=== PATIENT | male | born 1980 | race Caucasian/White ===

== ENCOUNTER 2016-09-14 20:45 | Emergency (ER) | payer SELFPAY ==
[~2016-09-14] VITALS: Ht 177.8 cm; Wt 77.1 kg
[~2016-09-14 20:45] MED LIST: CLON0.1T PO; LORA0.5T96 PO
--- NOTE | 2016-09-14 21:27 | PHYS DOC ---
Past Medical History Past Medical History: Anxiety, Bipolar, Other Additional Past Medical Histor: HEPATITIS C, ADHD, MANIAC, Past Surgical History: No Surgical History Alcohol Use: Rarely Drug Use: Heroin, Marijuana, Methadone Adult General Chief Complaint Chief Complaint: HEADACHE HPI HPI Patient is a 35 year old male who presents with chief complaint of opiate withdrawal. Patient states he last used yesterday. Patient he feels just queasy has a headache, the headache is described as similar to previous. Patient denies any fevers, chills, vomiting, diarrhea. Patient is currently homeless. According to nursing, the patient with some vague statements regarding suicidal ideation so psychiatric liason was called in to assess the patient. Given the examination and interview the patient failed to mention any suicidal ideation to the M.D. Review of Systems Review of Systems Constitutional: Denies fever or chills. Feeling queasy Eyes: Denies change in visual acuity, redness, or eye pain [] HENT: Denies nasal congestion or sore throat [] Respiratory: Denies cough or shortness of breath [] Cardiovascular: No chest pain GI: Denies abdominal pain, nausea, vomiting, bloody stools or diarrhea [] : Denies dysuria or hematuria [] Musculoskeletal: Denies back pain or joint pain [] Integument: Complains of insect bites, source Neurologic: Mild headache. No focal weakness or sensory changes [] Endocrine: Denies polyuria or polydipsia [] Current Medications Current Medications Current Medications Medications (Trade) Dose Ordered Sig/Guillermo Start Time Stop Time Status Last Admin Dose Admin Clonidine HCl (Catapres) 0.1 mg 1X ONCE 09/14/16 21:30 09/14/16 21:31 DC 09/14/16 21:46 0.1 MG Diphenhydramine HCl (Benadryl) 25 mg 1X ONCE 09/14/16 21:30 09/14/16 21:31 DC 09/14/16 21:44 25 MG Loperamide HCl (Imodium) 4 mg STAT ONCE 09/14/16 21:30 09/14/16 21:31 DC 09/14/16 21:45 4 MG Ondansetron HCl (Zofran) 4 mg 1X ONCE 09/14/16 21:30 09/14/16 21:31 DC 09/14/16 21:45 4 MG Prochlorperazine Edisylate (Compazine) 10 mg 1X ONCE 09/14/16 21:30 09/14/16 21:31 DC 09/14/16 21:45 10 MG Allergies Allergies Allergies Coded Allergies Type Severity Reaction Last Updated Verified haloperidol Allergy Severe Swelling 08/08/15 Yes Physical Exam Physical Exam Constitutional: Well developed, well nourished, very mild distress, non-toxic appearance. [] HENT: Normocephalic, atraumatic,oropharynx moist, no oral exudates, nose normal. [] Eyes: PERRLA, EOMI, conjunctiva normal, no discharge. [] Neck: Normal range of motion, no tenderness, supple, no stridor. No LAD, no meningeal signs Cardiovascular:Heart rate regular rhythm, no murmur, equal pulses, normal perfusion, no signs of vascular insufficiency. Heart rate at the time of the exam was 64 Lungs & Thorax: Bilateral breath sounds clear to auscultation. No tachypnea Abdomen: Bowel sounds normal, soft, no tenderness, no masses, no pulsatile masses. [] Skin: Warm, dry, no erythema, no rash. Scattered insect bites without signs of infection or abscess. Old tract gant without signs of infection. No Osler nodes , no Janeway lesions no splinter hemorrhages. No diaphoresis, no piloerection Back: No tenderness, no CVA tenderness. Full range of motion Extremities: No tenderness, no cyanosis, no clubbing, ROM intact, no edema. No signs of DVT or compartment syndrome Neurologic: Alert and oriented X 3, normal motor function, ambulating with normal gait and without system in the ED, no focal deficits noted. [] Psychologic: Affect normal, judgement normal, mood normal. No paranoia, no hallucinations, no delusions. Very vague thoughts about thinking about end-of- life but no specific plan Current Patient Data Vital Signs Vital Signs Date Time Temp Pulse Resp B/P (MAP) Pulse Ox O2 Delivery O2 Flow Rate FiO2 09/14/16 21:46 72 160/97 09/14/16 20:48 98.6 12 100 Room Air 98.6 Lab Values Laboratory Tests Test 09/14/16 20:48 White Blood Count 9.9 x10^3/uL (4.0-11.0) Red Blood Count 4.90 x10^6/uL (4.30-5.70) Hemoglobin 13.6 g/dL (13.0-17.5) Hematocrit 41.5 % (39.0-53.0) Mean Corpuscular Volume 85 fL (79-100) Mean Corpuscular Hemoglobin 28 pg (25-35) Mean Corpuscular Hemoglobin Concent 33 g/dL (31-37) Red Cell Distribution Width 14.9 % (11.5-14.5) H Platelet Count 240 x10^3/uL (140-400) Neutrophils (%) (Auto) 75 % (31-73) H Lymphocytes (%) (Auto) 18 % (24-48) L Monocytes (%) (Auto) 6 % (0-9) Eosinophils (%) (Auto) 1 % (0-3) Basophils (%) (Auto) 1 % (0-3) Neutrophils # (Auto) 7.5 x10^3uL (1.8-7.7) Lymphocytes # (Auto) 1.8 x10^3/uL (1.0-4.8) Monocytes # (Auto) 0.5 x10^3/uL (0.0-1.1) Eosinophils # (Auto) 0.0 x10^3/uL (0.0-0.7) Basophils # (Auto) 0.1 x10^3/uL (0.0-0.2) Sodium Level 138 mmol/L (136-145) Potassium Level 3.7 mmol/L (3.5-5.1) Chloride Level 101 mmol/L (98-107) Carbon Dioxide Level 27 mmol/L (21-32) Anion Gap 10 (6-14) Blood Urea Nitrogen 6 mg/dL (8-26) L Creatinine 0.9 mg/dL (0.7-1.3) Estimated GFR (Cockcroft-Gault) 95.0 Glucose Level 101 mg/dL (70-99) H Calcium Level 9.5 mg/dL (8.5-10.1) Laboratory Tests 09/14/16 20:48 Laboratory Tests 09/14/16 20:48 EKG EKG [] Radiology/Procedures Radiology/Procedures [] Course & Med Decision Making Course & Med Decision Making Pertinent Labs and Imaging studies reviewed. (See chart for details) 2246 patient reevaluated at this time, upon in no distress, headache is relieved , patient is not displaying any signs of withdrawal at this time. Patient is not actively suicidal or homicidal. Patient has been given resources to follow- up [] Roxann Disclaimer Dragon Disclaimer This electronic medical record was generated, in whole or in part, using a voice recognition dictation system. Departure Departure Impression: Primary Impression: Opiate abuse, continuous Additional Impressions: Headache Suicidal ideation Disposition: 01 HOME, SELF-CARE Condition: IMPROVED Referrals: NO PCP (PCP) Patient Instructions: General Headache Without Cause, [id number], Opiate Dependence, Suicidal Feelings, How to Help Yourself Additional Instructions: Please follow-up with the list of clinics provided to you, also follow up with the resources the psychiatric liason gave to you. Scripts Loperamide HCl (Imodium A-D) 2 Mg Capsule 2 MG PO TID, #10 CAP Prov: Kell LÓPEZ MD 09/14/16 Hyoscyamine Sulfate (LEVSIN) 0.125 Mg Tablet 1 TAB PO TID, #15 TAB 1 Refill Prov: Kell LÓPEZ MD 09/14/16 Ondansetron (ONDANSETRON ODT) 4 Mg Tab.rapdis 1 TAB PO PRN Q6-8HRS, #16 TAB Prov: Kell LÓPEZ MD 09/14/16 Problem Qualifiers Kell LÓPEZ MD Sep 14, 2016 21:27
[2016-09-14] MEDS ORDERED: diphenhydrAMINE 50 MG/ML VIAL IVP ONE (21:30)
[2016-09-14] MEDS ORDERED: cloNIDine HCL 0.1 MG TABLET PO ONE (21:30)
[2016-09-14] MEDS ORDERED: ONDANSETRON PF 4 MG/2 ML VIAL. IV ONE (21:30)
[2016-09-14] MEDS ORDERED: PROCHLORPERAZINE 10 MG/2 ML VIAL. IM ONE (21:30)
[2016-09-14] MEDS ORDERED: LOPERAMIDE 2 MG CAPSULE PO ONE (21:30)
[2016-09-14 21:34] LABS: BASO # 0.1 x10^3/uL (0.0-0.2); BASO % 1 % (0-3); EOS % 1 % (0-3); HEMATOCRIT 41.5 % (39.0-53.0); HEMOGLOBIN 13.6 g/dL (13.0-17.5); LYMPH # 1.8 x10^3/uL (1.0-4.8); LYMPH % 18 % (24-48); MEAN CORPUSCULAR HEMOGLOBIN 28 pg (25-35); MEAN CORPUSCULAR HGB CONC 33 g/dL (31-37); MEAN CORPUSCULAR VOLUME 85 fL (79-100); MONO % 6 % (0-9); NEUT % 75 % (31-73); PLATELET COUNT 240 x10^3/uL (140-400); RED CELL DISTRIBUTION WIDTH 14.9 % (11.5-14.5); WHITE BLOOD COUNT 9.9 x10^3/uL (4.0-11.0)
[2016-09-14 21:50] LABS: CALCIUM 9.5 mg/dL (8.5-10.1); CREATININE 0.9 mg/dL (0.7-1.3); POTASSIUM 3.7 mmol/L (3.5-5.1)
[2016-09-14 22:38] VITALS: BP 127/78
[2016-09-14] MEDS ORDERED: HYOS0.1264 PO (22:51)
[2016-09-14] MEDS ORDERED: LOPE2CAP88 PO (22:51)
[2016-09-14] MEDS ORDERED: ONDA4TAB12 PO (22:51)
== END 2016-09-14 23:07 | disposition home or self-care (01) ==
LOC: ER 20:45
DX: F11.10 Opioid abuse, uncomplicated (principal); R45.851 Suicidal ideations; R51 Headache; F41.9 Anxiety disorder, unspecified; F90.9 Attention-deficit hyperactivity disorder, unspecified type; F12.10 Cannabis abuse, uncomplicated; Z59.0 Homelessness; Z88.8 Allergy status to other drugs, medicaments and biological substances
CPT/HCPCS: 36415; 80048; 85027; 96372; 96374; 96375; 99284; J0780; J1200; J2405

== ENCOUNTER 2016-09-16 02:29 | Emergency (ER) | payer SELFPAY ==
[~2016-09-16] VITALS: Ht 177.8 cm; Wt 77.1 kg
[~2016-09-16 02:29] MED LIST changes: +HYOS0.1264 PO; +LOPE2CAP88 PO; +ONDA4TAB12 PO
[2016-09-16 02:48] LABS: BASO # 0.1 x10^3/uL (0.0-0.2); BASO % 1 % (0-3); EOS % 1 % (0-3); HEMATOCRIT 40.4 % (39.0-53.0); HEMOGLOBIN 13.2 g/dL (13.0-17.5); LYMPH # 1.6 x10^3/uL (1.0-4.8); LYMPH % 13 % (24-48); MEAN CORPUSCULAR HEMOGLOBIN 28 pg (25-35); MEAN CORPUSCULAR HGB CONC 33 g/dL (31-37); MEAN CORPUSCULAR VOLUME 84 fL (79-100); MONO % 7 % (0-9); NEUT % 79 % (31-73); PLATELET COUNT 235 x10^3/uL (140-400); RED BLOOD COUNT 4.79 x10^6/uL (4.30-5.70); WHITE BLOOD COUNT 12.7 x10^3/uL (4.0-11.0)
[2016-09-16 02:59] LABS: CALCIUM 9.2 mg/dL (8.5-10.1); GFR 84.1; POTASSIUM 3.7 mmol/L (3.5-5.1)
[2016-09-16] MEDS ORDERED: KETOROLAC TROMETHAMINE 30 MG/ML INJ. IV ONE (03:00)
[2016-09-16] MEDS ORDERED: IV NORMAL SALINE 1000ML BAG 1,000 ML IV ONE (03:00)
[2016-09-16 03:30] VITALS: BP 129/83
[2016-09-16] MEDS ORDERED: SULF1TAB24 PO (03:50)
--- NOTE | 2016-09-16 03:50 | PHYS DOC ---
Past Medical History Past Medical History: Anxiety, Bipolar, Other Additional Past Medical Histor: HEPATITIS C, ADHD, MANIAC, IV Drug use Past Surgical History: No Surgical History Alcohol Use: Rarely Drug Use: Heroin, Marijuana, Methadone Social History Narrative: used herion this morning Adult General Chief Complaint Chief Complaint: CELLULITIS HPI HPI Patient is a 35 year old male who presents with complaints of redness to his left arm. Patient is an IV drug user. Patient denies any, fevers, chills, chest pain, shortness of breath. Patient has not injected in the left arm for several days he's only be using his right arm. Review of Systems Review of Systems Constitutional: Denies fever or chills [] HENT: Denies nasal congestion or sore throat [] Respiratory: Denies cough or shortness of breath [] Cardiovascular: No chest pain GI: Denies abdominal pain, : Denies dysuria or hematuria [] Musculoskeletal: Denies back pain or joint pain [] Integument: Redness left arm Neurologic: Denies headache, focal weakness or sensory changes [] Current Medications Current Medications Current Medications Medications (Trade) Dose Ordered Sig/Guillermo Start Time Stop Time Status Last Admin Dose Admin Ceftriaxone Sodium 1 gm/ Sodium Chloride 50 ml @ 100 mls/hr Q24H 09/16/16 03:00 09/16/16 02:50 100 MLS/HR Ceftriaxone Sodium 50 ml @ As Directed STK-MED ONCE 09/16/16 02:48 09/16/16 02:49 DC Ketorolac Tromethamine (Toradol) 30 mg 1X ONCE 09/16/16 03:00 09/16/16 03:01 DC 09/16/16 02:50 30 MG Sodium Chloride 1,000 ml @ 1,000 mls/hr 1X ONCE 09/16/16 03:00 09/16/16 03:59 09/16/16 02:50 1,000 MLS/HR Allergies Allergies Allergies Coded Allergies Type Severity Reaction Last Updated Verified haloperidol Allergy Severe Swelling 08/08/15 Yes Physical Exam Physical Exam Constitutional: Well developed, well nourished, no acute distress, non-toxic appearance. [] HENT: Normocephalic, atraumatic, dry mucous membranes, no oral exudates, nose normal. [] Eyes: EOMI, conjunctiva normal, no discharge. [] Neck: Normal range of motion, no tenderness, supple, no stridor. No LAD, no meningeal signs Cardiovascular: Tachycardia, equal pulses, normal perfusion. no murmur or rubs Lungs & Thorax: Bilateral breath sounds clear to auscultation, no tachypnea Abdomen: Bowel sounds normal, soft, no tenderness, no masses, no pulsatile masses. [] Skin: Edema and warmth to left arm but otherwise normal. No splinter hemorrhages, no Janeway lesions, no osler nodes Back: No tenderness, no CVA tenderness. [] Extremities: No tenderness, no cyanosis, ROM intact, mild edema left arm. No signs of DVT, or compartment syndrome. No signs of septic joint Neurologic: Alert and oriented X 3, normal motor function, ambulates in the ED with normal gait and without assistance no focal deficits noted. [] Psychologic: Affect normal, judgement normal, mood normal. [] Current Patient Data Vital Signs Vital Signs Date Time Temp Pulse Resp B/P (MAP) Pulse Ox O2 Delivery O2 Flow Rate FiO2 09/16/16 02:33 98.6 110 18 131/92 (105) 95 Room Air 98.6 Lab Values Laboratory Tests Test 09/16/16 02:35 White Blood Count 12.7 x10^3/uL (4.0-11.0) H Red Blood Count 4.79 x10^6/uL (4.30-5.70) Hemoglobin 13.2 g/dL (13.0-17.5) Hematocrit 40.4 % (39.0-53.0) Mean Corpuscular Volume 84 fL (79-100) Mean Corpuscular Hemoglobin 28 pg (25-35) Mean Corpuscular Hemoglobin Concent 33 g/dL (31-37) Red Cell Distribution Width 15.0 % (11.5-14.5) H Platelet Count 235 x10^3/uL (140-400) Neutrophils (%) (Auto) 79 % (31-73) H Lymphocytes (%) (Auto) 13 % (24-48) L Monocytes (%) (Auto) 7 % (0-9) Eosinophils (%) (Auto) 1 % (0-3) Basophils (%) (Auto) 1 % (0-3) Neutrophils # (Auto) 10.1 x10^3uL (1.8-7.7) H Lymphocytes # (Auto) 1.6 x10^3/uL (1.0-4.8) Monocytes # (Auto) 0.9 x10^3/uL (0.0-1.1) Eosinophils # (Auto) 0.1 x10^3/uL (0.0-0.7) Basophils # (Auto) 0.1 x10^3/uL (0.0-0.2) Sodium Level 135 mmol/L (136-145) L Potassium Level 3.7 mmol/L (3.5-5.1) Chloride Level 98 mmol/L (98-107) Carbon Dioxide Level 28 mmol/L (21-32) Anion Gap 9 (6-14) Blood Urea Nitrogen 12 mg/dL (8-26) Creatinine 1.0 mg/dL (0.7-1.3) Estimated GFR (Cockcroft-Gault) 84.1 Glucose Level 122 mg/dL (70-99) H Calcium Level 9.2 mg/dL (8.5-10.1) Laboratory Tests 09/16/16 02:35 Laboratory Tests 09/16/16 02:35 EKG EKG [] Radiology/Procedures Radiology/Procedures [] Course & Med Decision Making Course & Med Decision Making Pertinent Labs and Imaging studies reviewed. (See chart for details) 0348 HR 84, pt resting comfortably [] Dragon Disclaimer Dragon Disclaimer This electronic medical record was generated, in whole or in part, using a voice recognition dictation system. Departure Departure Impression: Primary Impression: Cellulitis Disposition: HOME, SELF-CARE Condition: STABLE Referrals: NO PCP (PCP) Additional Instructions: please follow up with the clinics in the list already provided to you. Scripts Sulfamethoxazole/Trimethoprim (BACTRIM DS TABLET) 1 Each Tablet 2 TAB PO BID, #40 TAB Prov: Kell LÓPEZ MD 09/16/16 Kell LÓPEZ MD Sep 16, 2016 03:50
== END 2016-09-16 04:00 | disposition home or self-care (01) ==
LOC: ER 02:29
DX: L03.114 Cellulitis of left upper limb (principal); F90.9 Attention-deficit hyperactivity disorder, unspecified type; F31.9 Bipolar disorder, unspecified; F12.10 Cannabis abuse, uncomplicated; F11.10 Opioid abuse, uncomplicated; Z88.8 Allergy status to other drugs, medicaments and biological substances
CPT/HCPCS: 36415; 80048; 85027; 96365; 96375; 99284; J0696; J1885; J7030

== ENCOUNTER 2016-10-21 19:48 | Inpatient (IN) | payer SELFPAY ==
[~2016-10-21] VITALS: Ht 177.8 cm; Wt 77.1 kg
[~2016-10-21 19:48] MED LIST changes: +SULF1TAB24 PO
--- NOTE | 2016-10-21 20:16 | PHYS DOC ---
Past Medical History Past Medical History: Anxiety, Bipolar, Other Additional Past Medical Histor: HEPATITIS C, ADHD, MANIAC, IV Drug use Past Surgical History: No Surgical History Alcohol Use: Rarely Drug Use: Heroin, Marijuana, Methadone, Opiates Adult General Chief Complaint Chief Complaint: ABDOMINAL PAIN HPI HPI Patient is a 35 year old male who presents with abdominal pain. He states is fine until lunch when he ate something and he started having nausea vomiting. He denies any diarrhea. He does state he's withdrawing from heroin he' s been in detox for the last week but he denies that his symptoms are from withdrawing from heroin. He states he had diarrhea but that all resolved a few days ago from his heroin withdrawal. He denies any blood in his vomit. He states the pain is suprapubic area hurts constantly. He also states it was hard to urinate but denies any pain with urination. Review of Systems Review of Systems Constitutional: Denies fever or chills [] Eyes: Denies change in visual acuity, redness, or eye pain [] HENT: Denies nasal congestion or sore throat [] Respiratory: Denies cough or shortness of breath [] Cardiovascular: No additional information not addressed in HPI [] GI: Denies abdominal pain, nausea, vomiting, bloody stools or diarrhea [] : Denies dysuria or hematuria [] Musculoskeletal: Denies back pain or joint pain [] Integument: Denies rash or skin lesions [] Neurologic: Denies headache, focal weakness or sensory changes [] Endocrine: Denies polyuria or polydipsia [] Current Medications Current Medications Current Medications Medications (Trade) Dose Ordered Sig/[facility] Start Time Stop Time Status Last Admin Dose Admin Fentanyl Citrate (Fentanyl 2ml Vial) 50 mcg PRN Q15MIN PRN 10/22/16 00:45 10/23/16 00:44 Info (Do NOT chart on this entry -- for MONITORING) 1 each PRN DAILY PRN 10/21/16 23:00 10/23/16 22:59 Iohexol (Omnipaque 300 Mg/ml) 75 ml 1X ONCE 10/21/16 23:00 10/21/16 23:01 DC Morphine Sulfate 2 mg PRN Q15MIN PRN 10/21/16 20:30 10/22/16 20:29 10/21/16 23:50 2 MG Ondansetron HCl (Zofran) 4 mg 1X ONCE 10/21/16 20:30 10/21/16 20:31 DC 10/21/16 20:35 4 MG Sodium Chloride 1,000 ml @ 1,000 mls/hr 1X ONCE 10/21/16 20:45 10/21/16 21:44 DC 10/21/16 20:38 1,000 MLS/HR Allergies Allergies Allergies Coded Allergies Type Severity Reaction Last Updated Verified haloperidol Allergy Severe Swelling 08/08/15 Yes Physical Exam Physical Exam Constitutional: Well developed, well nourished, no acute distress, non-toxic appearance. [] HENT: Normocephalic, atraumatic, bilateral external ears normal, oropharynx moist, no oral exudates, nose normal. [] Eyes: PERRLA, EOMI, conjunctiva normal, no discharge. [] Neck: Normal range of motion, no tenderness, supple, no stridor. [] Cardiovascular:Heart rate regular rhythm, no murmur [] Lungs & Thorax: Bilateral breath sounds clear to auscultation [] Abdomen: Bowel sounds normal, soft, tender to palpation suprapubic in the area no rebound or guarding, no masses, no pulsatile masses. [] Skin: Warm, dry, no erythema, no rash. [] Back: No tenderness, no CVA tenderness. [] Extremities: No tenderness, no cyanosis, no clubbing, ROM intact, no edema. [] Neurologic: Alert and oriented X 3, normal motor function, normal sensory function, no focal deficits noted. [] Psychologic: Affect normal, judgement normal, mood normal. [] Current Patient Data Vital Signs Vital Signs Date Time Temp Pulse Resp B/P (MAP) Pulse Ox O2 Delivery O2 Flow Rate FiO2 10/21/16 23:50 20 Room Air 10/21/16 20:35 99 10/21/16 20:05 98.2 51 179/114 (135) 98.2 Lab Values Laboratory Tests Test 10/21/16 20:10 10/21/16 20:30 White Blood Count 11.9 x10^3/uL (4.0-11.0) H Red Blood Count 5.12 x10^6/uL (4.30-5.70) Hemoglobin 13.9 g/dL (13.0-17.5) Hematocrit 43.2 % (39.0-53.0) Mean Corpuscular Volume 84 fL (79-100) Mean Corpuscular Hemoglobin 27 pg (25-35) Mean Corpuscular Hemoglobin Concent 32 g/dL (31-37) Red Cell Distribution Width 16.1 % (11.5-14.5) H Platelet Count 313 x10^3/uL (140-400) Neutrophils (%) (Auto) 60 % (31-73) Lymphocytes (%) (Auto) 32 % (24-48) Monocytes (%) (Auto) 6 % (0-9) Eosinophils (%) (Auto) 1 % (0-3) Basophils (%) (Auto) 1 % (0-3) Neutrophils # (Auto) 7.2 x10^3uL (1.8-7.7) Lymphocytes # (Auto) 3.8 x10^3/uL (1.0-4.8) Monocytes # (Auto) 0.7 x10^3/uL (0.0-1.1) Eosinophils # (Auto) 0.1 x10^3/uL (0.0-0.7) Basophils # (Auto) 0.1 x10^3/uL (0.0-0.2) Sodium Level 140 mmol/L (136-145) Potassium Level 3.6 mmol/L (3.5-5.1) Chloride Level 104 mmol/L (98-107) Carbon Dioxide Level 23 mmol/L (21-32) Anion Gap 13 (6-14) Blood Urea Nitrogen 10 mg/dL (8-26) Creatinine 0.8 mg/dL (0.7-1.3) Estimated GFR (Cockcroft-Gault) 108.8 Glucose Level 87 mg/dL (70-99) Calcium Level 10.2 mg/dL (8.5-10.1) H Total Bilirubin 0.4 mg/dL (0.2-1.0) Direct Bilirubin 0.1 mg/dL (0.0-0.2) Aspartate Amino Transferase (AST) 39 U/L (15-37) H Alanine Aminotransferase (ALT) 45 U/L (16-63) Alkaline Phosphatase 52 U/L (46-116) Creatine Kinase 59 U/L (39-308) Creatine Kinase MB (Mass) 1.0 ng/mL (0.0-3.6) Creatine Kinase MB Relative Index 1.7 % (0-4) Total Protein 8.2 g/dL (6.4-8.2) Albumin 4.0 g/dL (3.4-5.0) Lipase 275 U/L (73-393) Prothrombin Time 12.0 SEC (11.7-14.0) Prothrombin Time INR 0.9 (0.8-1.1) PTT 30 SEC (24-38) Urine Color Yellow Urine Clarity Turbid Urine pH 7.5 Urine Specific [place] 1.025 Urine Protein Negative mg/dL (NEG-TRACE) Urine Glucose (UA) Negative mg/dL (NEG) Urine Ketones (Stick) 40 mg/dL (NEG) Urine Blood Negative (NEG) Urine Nitrite Negative (NEG) Urine Bilirubin Negative (NEG) Urine Urobilinogen Dipstick 0.2 mg/dL (0.2 mg/dL) Urine Leukocyte Esterase Negative (NEG) Urine RBC 0 /HPF (0-2) Urine WBC Occ /HPF (0-4) Urine Squamous Epithelial Cells Occ /LPF Urine Amorphous Sediment Present /HPF Urine Bacteria 0 /HPF (0-FEW) Urine Opiates Screen Neg (NEG) Urine Methadone Screen Neg (NEG) Urine Barbiturates Neg (NEG) Urine Phencyclidine Screen Neg (NEG) Urine Amphetamine/Methamphetamine Neg (NEG) Urine Benzodiazepines Screen Neg (NEG) Urine Cocaine Screen Neg (NEG) Urine Cannabinoids Screen Neg (NEG) Urine Ethyl Alcohol Neg (NEG) Laboratory Tests 10/21/16 20:10 Laboratory Tests 10/21/16 20:10 EKG EKG EKG shows sinus rhythm with rate of [address] elevations or concerning T-wave inversions, normal axis, QTC 444, as interpreted by me. Radiology/Procedures Radiology/Procedures [facility] [address] [place] [address] IMAGING REPORT Signed PATIENT: CHRISTOPHER MCGRAW ACCOUNT: [id number] : 1980 LOCATION: ER AGE: 35 SEX: M EXAM STATUS: REG ER ORD. PHYSICIAN: JEANETH ZEPEDA MD REASON: abd pain PROCEDURE: CT ABD PELV W/ IV CONTRST ONLY INDICATION: ABDOMINAL PAIN. IV OMNI 300 75 MLS.
COMPARISON: March 30, 2015 TECHNIQUE: Axial CT images were obtained through the abdomen and pelvis with intravenous contrast. One or more of the following individualized dose reduction techniques were utilized for this examination: 1. Automated exposure control; 2. Adjustment of the mA and/or kV according to patient size; 3. Use of iterative reconstruction technique. FINDINGS: Chest Base: Partially imaged without gross abnormality. Vessels: Mild calcific atherosclerosis. Liver/Biliary: No intrahepatic biliary duct dilation. Pancreas: No peripancreatic edema. Spleen: Normal. Kidneys/Adrenal: No hydronephrosis. Bladder: Minimal prominence of wall. Partially distended. GI: No free air. No bowel dilation to suggest obstruction. Appendix does not appear grossly inflamed. There are some degenerative changes the spine including suspected disc protrusion at L4-5 and L3-4. IMPRESSION: 1. No evidence of bowel obstruction, hydronephrosis or appendicitis. 2. There is some suspected disc protrusions within the lumbar spine. 3. Mild prominence of the bladder wall that this could be secondary to contraction was correlate with urinalysis to ensure that there is not associated infection. There is no definite adjacent inflammation to the fat. Electronically signed by: Aruna Patterson MD (10/21/2016 11:17 PM) [facility] DICTATED and SIGNED BY: ARUNA PATTERSON MD DATE: 10/21/162310 CC: JEANETH ZEPEDA MD; NO PCP ~ Impressions: Abdominal pain Course & Med Decision Making Course & Med Decision Making Pertinent Labs and Imaging studies reviewed. (See chart for details) Labs show any acute abnormalities. CT scan shows thickening of his urinary bladder but no other concerning signs. His pain is not controlled with morphine and we've increase it to fentanyl. He is being admitted for pain control. Interim orders have been written with the hospitalist. Dragon Disclaimer Dragon Disclaimer This electronic medical record was generated, in whole or in part, using a voice recognition dictation system. Departure Departure Impression: Primary Impression: Abdominal pain Disposition: 01 HOME, SELF-CARE Admitting Physician: Other Condition: STABLE Referrals: NO PCP (PCP) Scripts No Active Prescriptions or Reported Meds Problem Qualifiers Primary Impression: Abdominal pain Abdominal location: lower abdomen, unspecified Qualified Codes: R10.30 - Lower abdominal pain, unspecified JEANETH ZEPEDA MD Oct 21, 2016 20:16
[2016-10-21 20:30] LABS: BASO # 0.1 x10^3/uL (0.0-0.2); BASO % 1 % (0-3); EOS % 1 % (0-3); HEMATOCRIT 43.2 % (39.0-53.0); HEMOGLOBIN 13.9 g/dL (13.0-17.5); LYMPH # 3.8 x10^3/uL (1.0-4.8); LYMPH % 32 % (24-48); MEAN CORPUSCULAR HEMOGLOBIN 27 pg (25-35); MEAN CORPUSCULAR HGB CONC 32 g/dL (31-37); MEAN CORPUSCULAR VOLUME 84 fL (79-100); MONO % 6 % (0-9); NEUT % 60 % (31-73); PLATELET COUNT 313 x10^3/uL (140-400); RED BLOOD COUNT 5.12 x10^6/uL (4.30-5.70); RED CELL DISTRIBUTION WIDTH 16.1 % (11.5-14.5); WHITE BLOOD COUNT 11.9 x10^3/uL (4.0-11.0)
[2016-10-21] MEDS ORDERED: ONDANSETRON PF 4 MG/2 ML VIAL. IV ONE (20:30)
[2016-10-21] MEDS: MORPHINE SULFATE 2 MG/ML DISP.SYRIN. IV/SQ PRN ×2 (20:35→23:50)
[2016-10-21 20:44] LABS: CALCIUM 10.2 mg/dL (8.5-10.1); CREATININE 0.8 mg/dL (0.7-1.3); GFR 108.8; POTASSIUM 3.6 mmol/L (3.5-5.1)
[2016-10-21] MEDS ORDERED: IV NORMAL SALINE 1000ML BAG 1,000 ML IV ONE (20:45)
[2016-10-21 20:50] LABS: BILIRUBIN,URINE NEGATIVE (NEG); GLUCOSE,URINE NEGATIVE (NEG); NITRITE,URINE NEGATIVE (NEG); PH,URINE 7.5; PROTEIN,URINE NEGATIVE (NEG-TRACE); UROBILINOGEN,URINE 0.2 mg/dL (0.2 mg/dL)
[2016-10-21 20:52] LABS: DIRECT BILIRUBIN 0.1 mg/dL (0.0-0.2); TOTAL BILIRUBIN 0.4 mg/dL (0.2-1.0); TOTAL PROTEIN 8.2 g/dL (6.4-8.2)
[2016-10-21 20:52] LABS: INR 0.9 (0.8-1.1)
[2016-10-21 20:55] LABS: BARBITURATES NEG (NEG); BENZODIAZEPINES NEG (NEG); CANNABINOIDS NEG (NEG); COCAINE NEG (NEG); METHADONE NEG (NEG); OPIATES NEG (NEG); PHENCYCLIDINE NEG (NEG)
[2016-10-21 21:01] LABS: BACTERIA,URINE 0 /HPF (0-FEW); RBC,URINE 0 /HPF (0-2); SQUAMOUS EPITHELIAL CELL,UR OCC /LPF; WBC,URINE OCC /HPF (0-4)
[2016-10-21] MEDS ORDERED: IOHEXOL 300 MG/ML 75 ML VIAL IV ONE (23:00)
[2016-10-21] MEDS ORDERED: CONTRAST GIVEN MC PRN (23:00)
--- NOTE | 2016-10-21 23:20 | RAD ---
INDICATION: ABDOMINAL PAIN. IV OMNI 300 75 MLS.
COMPARISON: March 30, 2015 TECHNIQUE: Axial CT images were obtained through the abdomen and pelvis with intravenous contrast. One or more of the following individualized dose reduction techniques were utilized for this examination: 1. Automated exposure control; 2. Adjustment of the mA and/or kV according to patient size; 3. Use of iterative reconstruction technique. FINDINGS: Chest Base: Partially imaged without gross abnormality. Vessels: Mild calcific atherosclerosis. Liver/Biliary: No intrahepatic biliary duct dilation. Pancreas: No peripancreatic edema. Spleen: Normal. Kidneys/Adrenal: No hydronephrosis. Bladder: Minimal prominence of wall. Partially distended. GI: No free air. No bowel dilation to suggest obstruction. Appendix does not appear grossly inflamed. There are some degenerative changes the spine including suspected disc protrusion at L4-5 and L3-4. IMPRESSION: 1. No evidence of bowel obstruction, hydronephrosis or appendicitis. 2. There is some suspected disc protrusions within the lumbar spine. 3. Mild prominence of the bladder wall that this could be secondary to contraction was correlate with urinalysis to ensure that there is not associated infection. There is no definite adjacent inflammation to the fat. Electronically signed by: Fred Patterson MD (10/21/2016 11:17 PM) [facility]
[2016-10-22] MEDS ORDERED: fentaNYL PF VIAL 100 MCG/2 ML VIAL IV PRN (00:45)
[2016-10-22] MEDS ORDERED: ONDANSETRON PF 4 MG/2 ML VIAL. IV PRN ×2 (01:15→11:00)
[2016-10-22 01:30] VITALS: BP 153/81
[2016-10-22] MEDS: fentaNYL PF VIAL 100 MCG/2 ML VIAL IV PRN ×4 (03:20→10:24)
[2016-10-22 07:00] VITALS: BP 141/90
[2016-10-22 11:00] VITALS: BP 125/91
[2016-10-22] MEDS ORDERED: POTASSIUM CL 20MEQ D5-0.9%NACL 1,000 ML IV SCH (11:00)
[2016-10-22] MEDS ORDERED: hydrALAZINE 20 MG/ML VIAL. IVP PRN (11:00)
[2016-10-22] MEDS ORDERED: MORPHINE SULFATE 2 MG/ML DISP.SYRIN. IV PRN (11:00)
[2016-10-22] MEDS ORDERED: DOCUSATE SODIUM 100 MG CAPSULE. PO PRN (11:00)
[2016-10-22] MEDS ORDERED: ACETAMINOPHEN 325 MG TABLET. PO PRN (11:00)
[2016-10-22] MEDS ORDERED: traMADol 50 MG TABLET PO PRN (11:00)
[2016-10-22] MEDS: HYDROcodone/APAP 5/325MG 1 TAB TABLET PO PRN ×2 (11:15→15:17)
--- NOTE | 2016-10-22 11:18 | EKG ---
[facility] [address] [place] [address] Test Date: 2016-10-21 Test Time: 19:58:56 Pat Name: CHRISTOPHER MCGRAW Department: Room: [facility] Gender: M Swim Instructor: : 1980 Requested By: JUDSON GREGORY Order Number: [id number] Reading MD: Samina Hannon Measurements Intervals [place] Rate: 59 P: 27 DC: 144 QRS: 79 QRSD: 80 T: 56 QT: 444 QTc: 444 Interpretive Statements SINUS RHYTHM NORMAL EKG Electronically Signed On 10-26-2016 9:02:15 CDT by Samina Hannon
--- NOTE | 2016-10-22 13:51 | PDOC1 ---
History and Physical Date of Admission Date of Admission 10/21/16 Identification/Chief Complaint Chief Complaint abd pain, N/V Problems: Source Source: Chart review, Patient History of Present Illness History of Present Illness HPI HPI Patient is a 35 year old male who presents with abdominal pain. pt was here 1 month ago with skin infection with heroin injection. PT said he was not on any pain meds including methadone for 2 weeks. last night ,after eating some burger, he started to have lower abd pain, severe , N/V, no bloody or greenish. no constipation or diarrhea, had BM yesterday, normal. no fever, chills, cough ,sob. He told ERP he's withdrawing from heroin he's been in detox for the last week but he denies that his symptoms are from withdrawing from heroin. He states he had diarrhea but that all resolved a few days ago from his heroin withdrawal. He denies any blood in his vomit. He states the pain is suprapubic area hurts constantly. He also states it was hard to urinate but denies any pain with urination. CT abd neg. Past Medical History Cardiovascular: No pertinent hx Pulmonary: No pertinent hx GI: No pertinent hx Heme/Onc: No pertinent hx Hepatobiliary: No pertinent hx Psych: Anxiety, Addictions, Depression Rheumatologic: No pertinent hx Infectious disease: Other Renal/: No pertinent hx Endocrine: No pertinent hx Past Surgical History Past Surgical History: No pertinent history Family History Family History: Family History Unknown, Other Social History Smoke: <1 pack per day ALCOHOL: rare Drugs: Marijuana, Heroin, Crystal meth Current Problem List Problem List Problems Medical Problems: (1) Abdominal pain Status: Acute Current Medications Current Medications Current Medications Medications (Trade) Dose Ordered Sig/Guillermo Start Time Stop Time Status Last Admin Dose Admin Acetaminophen (Tylenol) 650 mg PRN Q6HRS PRN 10/22/16 11:00 Acetaminophen/ Hydrocodone Bitart (Lortab 5/325) 1 tab PRN Q4HRS PRN 10/22/16 11:00 10/22/16 11:15 1 TAB Docusate Sodium (Colace) 100 mg PRN DAILY PRN 10/22/16 11:00 Fentanyl Citrate (Fentanyl 2ml Vial) 50 mcg PRN Q2HR PRN 10/22/16 01:15 10/23/16 01:14 10/22/16 10:24 50 MCG Hydralazine HCl (Apresoline) 10 mg PRN Q4HRS PRN 10/22/16 11:00 Info (Do NOT chart on this entry -- for MONITORING) 1 each PRN DAILY PRN 10/21/16 23:00 10/23/16 22:59 Iohexol (Omnipaque 300 Mg/ml) 75 ml 1X ONCE 10/21/16 23:00 10/21/16 23:01 DC Morphine Sulfate 2 mg PRN Q2HR PRN 10/22/16 11:00 Ondansetron HCl (Zofran) 4 mg PRN Q6HRS PRN 10/22/16 11:00 Potassium Chloride/Dextrose/ Sod Cl 1,000 ml @ 75 mls/hr [id number] 10/22/16 11:00 10/22/16 11:15 75 MLS/HR Sodium Chloride 1,000 ml @ 1,000 mls/hr 1X ONCE 10/21/16 20:45 10/21/16 21:44 DC 10/21/16 20:38 1,000 MLS/HR Tramadol HCl (Ultram) 50 mg PRN Q6HRS PRN 10/22/16 11:00 Allergies Allergies Allergies Coded Allergies Type Severity Reaction Last Updated Verified haloperidol Allergy Severe Swelling 08/08/15 Yes ROS Review of System CONSTITUTIONAL: No fever or chills EYES: No recent changes SKIN: No rash or itching CARDIOVASCULAR: No chest pain, syncope, palpitations, or edema RESPIRATORY: No SOB or cough GASTROINTESTINAL: No nausea, vomiting or abdominal pain NEUROLOGICAL: No headaches or weakness ENDOCRINE: No cold or heat intolerance GENITOURINARY: No urgency or frequency of urination MUSCULOSKELETAL: No back pain or joint pain LYMPHATICS: No enlarged lymph nodes PSYCHIATRIC: No anxiety or depression Physical Exam Physical Exam GEN.: Alert and oriented. crying in pain HEENT: Head is normocephalic, atraumatic NECK: Supple. LUNGS: Clear to auscultation. HEART: RRR, S1, S2 present. Peripheral pulses intact ABDOMEN: Soft, Positive bowel sounds. lower abd moderate tenderness. EXTREMITIES: Without any cyanosis. NEUROLOGIC: Normal speech, normal tone PSYCHIATRIC: Normal affect, normal mood. SKIN: No ulcerations Vitals Vitals Vital Signs Date Time Temp Pulse Resp B/P (MAP) Pulse Ox O2 Delivery O2 Flow Rate FiO2 10/22/16 12:08 98 Room Air 10/22/16 11:00 98.2 102 20 125/91 (102) 98.2 Labs Labs Laboratory Tests Test 10/21/16 20:10 10/21/16 20:30 White Blood Count 11.9 x10^3/uL (4.0-11.0) Red Blood Count 5.12 x10^6/uL (4.30-5.70) Hemoglobin 13.9 g/dL (13.0-17.5) Hematocrit 43.2 % (39.0-53.0) Mean Corpuscular Volume 84 fL (79-100) Mean Corpuscular Hemoglobin 27 pg (25-35) Mean Corpuscular Hemoglobin Concent 32 g/dL (31-37) Red Cell Distribution Width 16.1 % (11.5-14.5) Platelet Count 313 x10^3/uL (140-400) Neutrophils (%) (Auto) 60 % (31-73) Lymphocytes (%) (Auto) 32 % (24-48) Monocytes (%) (Auto) 6 % (0-9) Eosinophils (%) (Auto) 1 % (0-3) Basophils (%) (Auto) 1 % (0-3) Neutrophils # (Auto) 7.2 x10^3uL (1.8-7.7) Lymphocytes # (Auto) 3.8 x10^3/uL (1.0-4.8) Monocytes # (Auto) 0.7 x10^3/uL (0.0-1.1) Eosinophils # (Auto) 0.1 x10^3/uL (0.0-0.7) Basophils # (Auto) 0.1 x10^3/uL (0.0-0.2) Sodium Level 140 mmol/L (136-145) Potassium Level 3.6 mmol/L (3.5-5.1) Chloride Level 104 mmol/L (98-107) Carbon Dioxide Level 23 mmol/L (21-32) Anion Gap 13 (6-14) Blood Urea Nitrogen 10 mg/dL (8-26) Creatinine 0.8 mg/dL (0.7-1.3) Estimated GFR (Cockcroft-Gault) 108.8 Glucose Level 87 mg/dL (70-99) Calcium Level 10.2 mg/dL (8.5-10.1) Total Bilirubin 0.4 mg/dL (0.2-1.0) Direct Bilirubin 0.1 mg/dL (0.0-0.2) Aspartate Amino Transf (AST/SGOT) 39 U/L (15-37) Alanine Aminotransferase (ALT/SGPT) 45 U/L (16-63) Alkaline Phosphatase 52 U/L (46-116) Creatine Kinase 59 U/L (39-308) Creatine Kinase MB (Mass) 1.0 ng/mL (0.0-3.6) Creatine Kinase MB Relative Index 1.7 % (0-4) Total Protein 8.2 g/dL (6.4-8.2) Albumin 4.0 g/dL (3.4-5.0) Lipase 275 U/L (73-393) Prothrombin Time 12.0 SEC (11.7-14.0) Prothromb Time International Ratio 0.9 (0.8-1.1) Activated Partial Thromboplast Time 30 SEC (24-38) Urine Color Yellow Urine Clarity Turbid Urine pH 7.5 Urine Specific Crumrod 1.025 Urine Protein Negative mg/dL (NEG-TRACE) Urine Glucose (UA) Negative mg/dL (NEG) Urine Ketones (Stick) 40 mg/dL (NEG) Urine Blood Negative (NEG) Urine Nitrite Negative (NEG) Urine Bilirubin Negative (NEG) Urine Urobilinogen Dipstick 0.2 mg/dL (0.2 mg/dL) Urine Leukocyte Esterase Negative (NEG) Urine RBC 0 /HPF (0-2) Urine WBC Occ /HPF (0-4) Urine Squamous Epithelial Cells Occ /LPF Urine Amorphous Sediment Present /HPF Urine Bacteria 0 /HPF (0-FEW) Urine Opiates Screen Neg (NEG) Urine Methadone Screen Neg (NEG) Urine Barbiturates Neg (NEG) Urine Phencyclidine Screen Neg (NEG) Urine Amphetamine/Methamphetamine Neg (NEG) Urine Benzodiazepines Screen Neg (NEG) Urine Cocaine Screen Neg (NEG) Urine Cannabinoids Screen Neg (NEG) Urine Ethyl Alcohol Neg (NEG) Laboratory Tests Test 10/21/16 20:10 10/21/16 20:30 White Blood Count 11.9 x10^3/uL (4.0-11.0) Red Blood Count 5.12 x10^6/uL (4.30-5.70) Hemoglobin 13.9 g/dL (13.0-17.5) Hematocrit 43.2 % (39.0-53.0) Mean Corpuscular Volume 84 fL (79-100) Mean Corpuscular Hemoglobin 27 pg (25-35) Mean Corpuscular Hemoglobin Concent 32 g/dL (31-37) Red Cell Distribution Width 16.1 % (11.5-14.5) Platelet Count 313 x10^3/uL (140-400) Neutrophils (%) (Auto) 60 % (31-73) Lymphocytes (%) (Auto) 32 % (24-48) Monocytes (%) (Auto) 6 % (0-9) Eosinophils (%) (Auto) 1 % (0-3) Basophils (%) (Auto) 1 % (0-3) Neutrophils # (Auto) 7.2 x10^3uL (1.8-7.7) Lymphocytes # (Auto) 3.8 x10^3/uL (1.0-4.8) Monocytes # (Auto) 0.7 x10^3/uL (0.0-1.1) Eosinophils # (Auto) 0.1 x10^3/uL (0.0-0.7) Basophils # (Auto) 0.1 x10^3/uL (0.0-0.2) Sodium Level 140 mmol/L (136-145) Potassium Level 3.6 mmol/L (3.5-5.1) Chloride Level 104 mmol/L (98-107) Carbon Dioxide Level 23 mmol/L (21-32) Anion Gap 13 (6-14) Blood Urea Nitrogen 10 mg/dL (8-26) Creatinine 0.8 mg/dL (0.7-1.3) Estimated GFR (Cockcroft-Gault) 108.8 Glucose Level 87 mg/dL (70-99) Calcium Level 10.2 mg/dL (8.5-10.1) Total Bilirubin 0.4 mg/dL (0.2-1.0) Direct Bilirubin 0.1 mg/dL (0.0-0.2) Aspartate Amino Transf (AST/SGOT) 39 U/L (15-37) Alanine Aminotransferase (ALT/SGPT) 45 U/L (16-63) Alkaline Phosphatase 52 U/L (46-116) Creatine Kinase 59 U/L (39-308) Creatine Kinase MB (Mass) 1.0 ng/mL (0.0-3.6) Creatine Kinase MB Relative Index 1.7 % (0-4) Total Protein 8.2 g/dL (6.4-8.2) Albumin 4.0 g/dL (3.4-5.0) Lipase 275 U/L (73-393) Prothrombin Time 12.0 SEC (11.7-14.0) Prothromb Time International Ratio 0.9 (0.8-1.1) Activated Partial Thromboplast Time 30 SEC (24-38) Urine Color Yellow Urine Clarity Turbid Urine pH 7.5 Urine Specific Crumrod 1.025 Urine Protein Negative mg/dL (NEG-TRACE) Urine Glucose (UA) Negative mg/dL (NEG) Urine Ketones (Stick) 40 mg/dL (NEG) Urine Blood Negative (NEG) Urine Nitrite Negative (NEG) Urine Bilirubin Negative (NEG) Urine Urobilinogen Dipstick 0.2 mg/dL (0.2 mg/dL) Urine Leukocyte Esterase Negative (NEG) Urine RBC 0 /HPF (0-2) Urine WBC Occ /HPF (0-4) Urine Squamous Epithelial Cells Occ /LPF Urine Amorphous Sediment Present /HPF Urine Bacteria 0 /HPF (0-FEW) Urine Opiates Screen Neg (NEG) Urine Methadone Screen Neg (NEG) Urine Barbiturates Neg (NEG) Urine Phencyclidine Screen Neg (NEG) Urine Amphetamine/Methamphetamine Neg (NEG) Urine Benzodiazepines Screen Neg (NEG) Urine Cocaine Screen Neg (NEG) Urine Cannabinoids Screen Neg (NEG) Urine Ethyl Alcohol Neg (NEG) VTE Prophylaxis Ordered VTE Prophylaxis Devices: No VTE Pharmacological Prophylaxi: Yes Assessment/Plan Assessment/Plan lower abd pain, colitis? wo diarrhea tho intractable N/V anxiety bipolar 1 h/o hepatitis C ADHD iv drug use with heroine, was on methadone for withdrawl leukocytosis plan: pain control, clear liquid diet dvt , gi ppx labs tmr UA ETHEL Cheng MD Oct 22, 2016 13:51
[2016-10-22] MEDS ORDERED: ENOXAPARIN 40 MG/0.4 ML SYRINGE. SQ SCH (14:00)
[2016-10-22 15:00] VITALS: BP 127/96
--- NOTE | 2016-10-22 16:35 | PDOC3 ---
Discharge Summary MERGED WITH [facility] Date of Admission: Oct 21, 2016 Discharge Date: Oct 22, 2016 Admitting Diagnosis lower abd pain, colitis? food tox? wo diarrhea tho intractable N/V anxiety bipolar 1 h/o hepatitis C ADHD iv drug use with heroine, was on methadone for withdrawl leukocytosis Problems: Final Diagnosis Brief Hospital Course Patient is a 35 year old male who presents with abdominal pain. pt was here 1 month ago with skin infection with heroin injection. PT said he was not on any pain meds including methadone for 2 weeks. last night ,after eating some burger, he started to have lower abd pain, severe , N/V, no bloody or greenish. no constipation or diarrhea, had BM yesterday, normal. no fever, chills, cough ,sob. He told ERP he's withdrawing from heroin he's been in detox for the last week but he denies that his symptoms are from withdrawing from heroin. He states he had diarrhea but that all resolved a few days ago from his heroin withdrawal. He denies any blood in his vomit. He states the pain is suprapubic area hurts constantly. He also states it was hard to urinate but denies any pain with urination. CT abd neg. pt improved later today, eats ok, requires to dc. dc time 30min Patient History: Unknown Problems: Disposition home CONDITION AT DISCHARGE: Improved Diet gi soft No Active Prescriptions or Reported Meds Follow Up pcp in 2 weeks ETHEL LESTER MD Oct 22, 2016 16:35
[2016-10-22] MEDS ORDERED: FAMOTIDINE 20 MG/2 ML VIAL IVP SCH (21:00)
--- NOTE | 2016-10-23 01:22 | ACF ---
Admission Forms Criteria ABDOMINAL PAIN Clinical Indications for Admission to Inpatient Care ( nikolski/check or initial the applicable condition/criteria): Admission is indicated for ANY ONE of the following (1)(2)(3)(4)(5)(6): [ ]I. Surgery needed that cannot be performed on ambulatory basis [ ]II. Peritoneal signs present (eg, rebound tenderness, rigidity) [ ]III. Evaluation requires patient to not eat or drink for extended period ( eg, more than 24 hours). [X ]IV. Inpatient admission required[B] rather than observation care (see Abdominal Pain: Observation Care guideline as appropriate) because of ANY ONE of the following(7)(8)(9): [ ] a) Hemodynamic instability [X ]b) Severe pain requiring acute inpatient management [ ]c) Identification of etiology or finding that requires inpatient care (eg, aortic dissection, free air,bowel ischemia)(10) [ ]d) Absent bowel sounds with complete ileus (11) [ ]e) Signs of intestinal obstruction[C] [ ]f) Suspected toxic megacolon [ ]g) Severe electrolyte abnormalities requiring inpatient care [ ]h) High fever or infection requiring inpatient admission as indicated by ANY ONE of the following (12)(13): [ ]i) Appropriate outpatient or observation care antimicrobial treatment unavailable, not effective, or not feasible [ ]ii) Documented bacteremia [ ]iii) Temperature greater than 104.9 degrees F (40.5 degrees C) (oral) [ ]iv) Temperature greater than 103.1 degrees F (39.5 degrees C) ( oral) or less than 96.8 degrees F (36 degrees C) (rectal) that does not respond to all emergency treatment measures [ ]i) IV fluid required rather than oral rehydration to replace significant ongoing (eg, for greater than 24 hours) losses (greater than 3 L/m2 per day)(14)(15) [ ]j) Percutaneous or open drainage (eg, abscess, biliary tract) procedures [ ]k) Parenteral nutrition regimen that must be implemented on inpatient basis [ ]l) Other condition, treatment, or monitoring requiring inpatient admission Extended stay beyond goal length of stay may be needed for (1)(3)(4)(10)(16): [ ]a) Surgery (e.g., colectomy, revascularization procedure) [ ]b) Persistent abdominal pain with suspected intra-abdominal process [ ]c) Diagnosed condition requiring continued stay (e.g., pancreatitis, complicated diverticulitis) The [facility] content created by [facility] has been revised. The portions of the content which have been revised are identified through the use of italic text, and [facility] has neither reviewed nor approved the modified material.All other unmodified content is copyright [facility]. Please see references footnoted in the original [facility] edition 2015 Admission Criteria Met?: Yes REJI AGGARWAL Oct 23, 2016 01:22
== END 2016-10-22 17:10 | disposition home or self-care (01) | DRG 392 ==
LOC: ER 19:48 → 6 SOUTH 10-22 00:30
PROVIDERS: ADMIT Internal Medicine Hematology & Oncology; ATTEND Internal Medicine Hematology & Oncology
DX: K52.9 Noninfective gastroenteritis and colitis, unspecified (principal); B19.20 Unspecified viral hepatitis C without hepatic coma; D72.829 Elevated white blood cell count, unspecified; R10.9 Unspecified abdominal pain; F41.9 Anxiety disorder, unspecified; F17.210 Nicotine dependence, cigarettes, uncomplicated; F90.9 Attention-deficit hyperactivity disorder, unspecified type; F19.90 Other psychoactive substance use, unspecified, uncomplicated; F31.9 Bipolar disorder, unspecified; T62.91XA Toxic effect of unspecified noxious substance eaten as food, accidental (unintentional), initial encounter
CPT/HCPCS: 36415; 74177; 80048; 80076; 80307; 81001; 82553; 83690; 85025; 85610; 85730; 93005; 96361; 96374; 96375; J1650; J2270; J2405; J3010; J7030; 99285-25; G0479

== ENCOUNTER 2016-11-07 19:12 | Emergency (ER) | payer SELFPAY ==
[~2016-11-07] VITALS: Ht 185.4 cm; Wt 77.1 kg
[2016-11-07] MEDS ORDERED: ACETAMINOPHEN 650 MG/20.3 ML SOLUTION. PEG ONE (19:45)
[2016-11-07 19:56] LABS: BASO # 0.1 x10^3/uL (0.0-0.2); BASO % 1 % (0-3); EOS % 1 % (0-3); HEMATOCRIT 38.6 % (39.0-53.0); HEMOGLOBIN 12.4 g/dL (13.0-17.5); LYMPH # 2.1 x10^3/uL (1.0-4.8); LYMPH % 28 % (24-48); MEAN CORPUSCULAR HEMOGLOBIN 27 pg (25-35); MEAN CORPUSCULAR HGB CONC 32 g/dL (31-37); MEAN CORPUSCULAR VOLUME 85 fL (79-100); MONO % 5 % (0-9); NEUT % 65 % (31-73); PLATELET COUNT 228 x10^3/uL (140-400); RED BLOOD COUNT 4.56 x10^6/uL (4.30-5.70); RED CELL DISTRIBUTION WIDTH 15.9 % (11.5-14.5); WHITE BLOOD COUNT 7.4 x10^3/uL (4.0-11.0)
[2016-11-07 19:58] LABS: BILIRUBIN,URINE NEGATIVE (NEG); GLUCOSE,URINE NEGATIVE (NEG); NITRITE,URINE NEGATIVE (NEG); PH,URINE 7.5; PROTEIN,URINE NEGATIVE (NEG-TRACE); UROBILINOGEN,URINE 0.2 mg/dL (0.2 mg/dL)
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
[2016-11-07 20:00] LABS: BARBITURATES NEG (NEG); BENZODIAZEPINES POS (NEG); CANNABINOIDS POS (NEG); COCAINE NEG (NEG); METHADONE NEG (NEG); OPIATES POS (NEG); PHENCYCLIDINE NEG (NEG)
[2016-11-07] MEDS ORDERED: ACETAMINOPHEN 325 MG TABLET. PO ONE (20:00)
[2016-11-07 20:05] LABS: CALCIUM 9.2 mg/dL (8.5-10.1); CREATININE 0.9 mg/dL (0.7-1.3); POTASSIUM 3.9 mmol/L (3.5-5.1)
[2016-11-07] MEDS ORDERED: cloNIDine TTS-1 1 PATCH PATCH.TDWK TD SCH (20:06)
[2016-11-07 20:08] LABS: BACTERIA,URINE 0 /HPF (0-FEW); RBC,URINE 0 /HPF (0-2); WBC,URINE 0 /HPF (0-4)
[2016-11-07 20:12] LABS: ALBUMIN 3.5 g/dL (3.4-5.0); TOTAL BILIRUBIN 0.4 mg/dL (0.2-1.0)
[2016-11-07 20:14] LABS: ETHANOL < 10 mg/dL (0-10)
[2016-11-07] MEDS ORDERED: PROMETHAZINE 12.5 MG TABLET. PO ONE (20:15)
[2016-11-07 21:30] VITALS: BP 137/95
--- NOTE | 2016-11-08 08:29 | RAD ---
Indication injury, pain. An AP view of the pelvis was obtained as well as targeted AP and frog-leg images of the left hip. No acute or significant bony finding is seen. A small enthesophyte is noted associated with the left acetabular lip. IMPRESSION: No acute bony finding
== END 2016-11-07 22:50 | disposition home or self-care (01) ==
LOC: ER 19:12
DX: S30.1XXA Contusion of abdominal wall, initial encounter (principal); F11.23 Opioid dependence with withdrawal; F90.9 Attention-deficit hyperactivity disorder, unspecified type; F17.200 Nicotine dependence, unspecified, uncomplicated; Z88.8 Allergy status to other drugs, medicaments and biological substances; Y08.89XA Assault by other specified means, initial encounter; Y93.89 Activity, other specified; Y92.89 Other specified places as the place of occurrence of the external cause; Y99.8 Other external cause status
CPT/HCPCS: 36415; 73502; 80053; 80307; 81001; 85025; 99285; G0480; Q0169; G0479

== ENCOUNTER 2018-04-16 03:53 | Emergency (ER) | payer SELFPAY ==
[~2018-04-16] VITALS: Ht 175.3 cm; Wt 79.4 kg
--- NOTE | 2018-04-16 04:11 | PHYS DOC ---
Past Medical History Past Medical History: Anxiety, Bipolar, Other Additional Past Medical Histor: HEPATITIS C, ADHD, MANIAC, IV Drug use Past Surgical History: No Surgical History Alcohol Use: Rarely Drug Use: Heroin, Marijuana, Methadone, Opiates Adult General Chief Complaint Chief Complaint: COLD EXPOSURE [facility] HPI Patient is a 37-year-old male who arrives via EMS with report of his hands and feet being cold. Patient had gone out to the [employer] this evening and didn't have a way to get back home. He had walked to the [facility] and warmed up there but then was told that he would have to leave so he called EMS to try and get a ride to [place]. Patient has an appointment at the methadone clinic in the morning to receive his next dose of methadone. Patient complains of pain in his feet because he has been walking around for a few hours and also because his feet got cold. He rates that pain as moderate. He denies any thoughts of self-harm and has no thoughts of harming others. Review of Systems Review of Systems Constitutional: Denies fever or chills [] Respiratory: Denies cough or shortness of breath [] Cardiovascular: No additional information not addressed in HPI [] GI: Denies abdominal pain, nausea, vomiting, bloody stools or diarrhea [] Musculoskeletal: Complains of bilateral foot pain [] Integument: Denies rash or skin lesions [] Allergies Allergies Allergies Coded Allergies Type Severity Reaction Last Updated Verified haloperidol Allergy Severe Swelling 08/08/15 Yes Physical Exam Physical Exam Constitutional: Well developed, well nourished, no acute distress, non-toxic appearance. [] Neck: Normal range of motion, no tenderness, supple, no stridor. [] Cardiovascular:Heart rate regular rhythm, no murmur [] Lungs & Thorax: Bilateral breath sounds clear to auscultation [] Skin: Warm, dry, no erythema, no rash. [] Extremities: No cyanosis, no clubbing, ROM intact, no edema. [] EKG EKG [] Radiology/Procedures Radiology/Procedures [] Course & Med Decision Making Course & Med Decision Making Pertinent Labs and Imaging studies reviewed. (See chart for details) [] Dragon Disclaimer Dragon Disclaimer This electronic medical record was generated, in whole or in part, using a voice recognition dictation system. Departure Departure Impression: Primary Impression: Foot pain, bilateral Disposition: 01 HOME, SELF-CARE Condition: STABLE Referrals: NO PCP (PCP) Patient Instructions: Musculoskeletal Pain Scripts No Active Prescriptions or Reported Meds SJ PARISI Jr. DO Apr 16, 2018 04:11
[2018-04-16 04:33] VITALS: BP 126/76
== END 2018-04-16 04:47 | disposition home or self-care (01) ==
LOC: ER 03:53
DX: M79.671 Pain in right foot (principal); M79.672 Pain in left foot; F41.9 Anxiety disorder, unspecified; F31.9 Bipolar disorder, unspecified; Z88.8 Allergy status to other drugs, medicaments and biological substances
CPT/HCPCS: 99281

== ENCOUNTER 2018-09-15 17:43 | Emergency (ER) | payer SELFPAY ==
[~2018-09-15] VITALS: Ht 177.8 cm; Wt 77.1 kg
[2018-09-15] MEDS ORDERED: ONDANSETRON PF 4 MG/2 ML VIAL. IV ONE (18:30)
[2018-09-15 18:36] LABS: BILIRUBIN,URINE NEGATIVE (NEG); CLARITY,URINE CLEAR; COLOR,URINE YELLOW; NITRITE,URINE NEGATIVE (NEG); PH,URINE 5.5; PROTEIN,URINE NEGATIVE (NEG-TRACE)
[2018-09-15 18:37] VITALS: BP 164/111
[2018-09-15 18:41] LABS: BARBITURATES NEG (NEG); BENZODIAZEPINES NEG (NEG); CANNABINOIDS POS (NEG); COCAINE NEG (NEG); METHADONE POS (NEG); OPIATES NEG (NEG); PHENCYCLIDINE NEG (NEG)
[2018-09-15 18:45] LABS: AMPHETAMINE/METHAMPHETAMINE POS (NEG)
--- NOTE | 2018-09-15 18:47 | PHYS DOC ---
Past Medical History Past Medical History: Other Additional Past Medical Histor: drug alcohol, methadone abuse. Past Surgical History: No Surgical History Alcohol Use: Heavy Drug Use: Benzodiazepine, Cocaine, Heroin, Marijuana, Methadone Adult General Chief Complaint Chief Complaint: ABDOMINAL PAIN HPI HPI 37-year-old male presents via EMS with report of diffuse abdominal pain times one day. Patient reports he thinks he might be continuing to withdrawal from methadone. Reports he finished a treatment program with [facility] 2 months ago. Patient reports his current symptoms seem very similar to when he had been having withdrawal symptoms previously. Denies any fever or chills. Denies known sick contacts. Denies diarrhea or constipation. Patient denies travel outside [facility]. Reports he tried drinking water and 2 shots of vodka prior to coming in today. Reports last ate at 0630. Patient continually reports "I do not want to be here" and "I just didn't know what to do ". Review of Systems Review of Systems Constitutional: Denies fever or chills Eyes: Denies redness or eye pain HENT: Denies nasal congestion or sore throat Respiratory: Denies cough or shortness of breath Cardiovascular: Denies chest pain or palpitations GI: Reports abdominal pain, nausea, and vomiting : Denies dysuria or hematuria Musculoskeletal: Denies back pain or joint pain Integument: Denies rash or skin lesions Neurologic: Denies headache, focal weakness or sensory changes Complete systems were reviewed and found to be within normal limits, except as documented in this note. Current Medications Current Medications Current Medications Medications (Trade) Dose Ordered Sig/Guillermo Start Time Stop Time Status Last Admin Dose Admin Famotidine (Pepcid Vial) 20 mg 1X ONCE 09/15/18 19:00 09/15/18 19:01 Ketorolac Tromethamine (Toradol 30mg Vial) 15 mg 1X ONCE 09/15/18 19:00 09/15/18 19:01 Multivitamins 10 ml/Thiamine HCl 100 mg/Folic Acid 1 mg/Sodium Chloride 1,011.2 ml @ 1,000.088 mls/hr 1X ONCE 09/15/18 19:00 09/15/18 20:00 Ondansetron HCl (Zofran) 4 mg 1X ONCE 09/15/18 18:30 09/15/18 18:31 DC Allergies Allergies Allergies Coded Allergies Type Severity Reaction Last Updated Verified haloperidol Allergy Severe Swelling 08/08/15 Yes quetiapine Adverse Reaction Intermediate Anaphylaxis 08/14/18 Yes Physical Exam Physical Exam Constitutional: Well developed, well nourished, agitated, non-toxic appearance HENT: Normocephalic, atraumatic, oropharynx moist Eyes: Conjunctiva normal, no discharge Neck: Normal range of motion, no tenderness, supple Cardiovascular: Heart rate normal, regular rhythm Lungs & Thorax: Bilateral breath sounds clear to auscultation, no wheezing Abdomen: Soft, diffuse tenderness on palpation, rebound tenderness Skin: Warm, dry, no erythema, no rash Back: No tenderness, no CVA tenderness Extremities: No tenderness, no edema Neurologic: Alert and oriented X 3, no focal deficits noted Psychologic: Affect agitated/anxious, tangential thought process Current Patient Data Vital Signs Vital Signs Date Time Temp Pulse Resp B/P (MAP) Pulse Ox O2 Delivery O2 Flow Rate FiO2 09/15/18 18:37 97.5 74 22 164/111 (128) 100 Room Air 97.5 Lab Values Laboratory Tests Test 09/15/18 18:25 Urine Opiates Screen Neg (NEG) Urine Methadone Screen Pos (NEG) Urine Barbiturates Neg (NEG) Urine Phencyclidine Screen Neg (NEG) Urine Amphetamine/Methamphetamine Pos (NEG) Urine Benzodiazepines Screen Neg (NEG) Urine Cocaine Screen Neg (NEG) Urine Cannabinoids Screen Pos (NEG) Urine Ethyl Alcohol Pos (NEG) EKG EKG [] Radiology/Procedures Radiology/Procedures [] Course & Med Decision Making Course & Med Decision Making Pertinent Labs and Imaging studies ordered but unable to obtain Patient presents with report of diffuse abdominal pain x 1 day with report of nausea and vomiting x 2 episodes. Reports he feels like he is "withdrawing". Reports completing opiate withdrawal program at 2 months ago. Patient agitated and anxious. Tangential thought process. Patient was calm and looking at phone upon my arrival to ED. Upon HPI questioning patient continually reporting "he doesn't want to be here". Patient reports he just wants something to "take the pain away." Appropriate abdominal pain workup ordering including laboratory studies, EKG, CT imaging, and IVF hydration with symptomatic treatment. Patient subsequently decided he "doesn't want to be here that long" and requested to leave against medical advice. Patient signed AMA form and acknowledges risks of leaving AMA including permanent disability and/or , but left prior to receiving discharge instructions regarding AMA. Roxann Disclaimer Dragon Disclaimer This electronic medical record was generated, in whole or in part, using a voice recognition dictation system. Departure Departure Impression: Primary Impression: Abdominal pain Additional Impression: Left against medical advice Disposition: 07 AGAINST MEDICAL ADVICE Condition: GUARDED Referrals: NO PCP (PCP) Patient Instructions: Discharge Against Medical Advice Additional Instructions: You have elected to leave against medical advice. Scripts No Active Prescriptions or Reported Meds Problem Qualifiers Primary Impression: Abdominal pain Abdominal location: generalized Qualified Codes: R10.84 - Generalized abdominal pain RADHA RONDON DO Sep 15, 2018 18:47
[2018-09-15 18:53] LABS: RBC,URINE 0 /HPF (0-2)
[2018-09-15 18:54] LABS: BACTERIA,URINE 0 /HPF (0-FEW); HYALINE CASTS, URINE FEW /HPF; WBC,URINE 0 /HPF (0-4)
[2018-09-15] MEDS ORDERED: MULTIVIT INFUSN,ADULT 4,VIT K 10 ML, THIAMINE INJ 100 MG, FOLIC ACID INJ 1 MG in IV NOR... IV ONE (19:00)
[2018-09-15] MEDS ORDERED: FAMOTIDINE 20 MG/2 ML VIAL IVP ONE (19:00)
[2018-09-15] MEDS ORDERED: KETOROLAC 30 MG/ML VIAL. IV ONE (19:00)
== END 2018-09-15 18:46 | disposition left against medical advice (07) ==
LOC: ER 17:43
DX: R10.84 Generalized abdominal pain (principal); R11.2 Nausea with vomiting, unspecified; Y90.9 Presence of alcohol in blood, level not specified; F11.23 Opioid dependence with withdrawal; Z88.8 Allergy status to other drugs, medicaments and biological substances; F41.9 Anxiety disorder, unspecified; F10.20 Alcohol dependence, uncomplicated
CPT/HCPCS: 80307; 81001; 99284

== ENCOUNTER 2018-11-10 18:09 | Inpatient (IN) | payer SELFPAY ==
[~2018-11-10] VITALS: Ht 180.3 cm; Wt 79.5 kg
[~2018-11-10 18:09] MED LIST changes: +LOPE-101 PO; -LOPE2CAP88 PO
[2018-11-10] MEDS ORDERED: cefOXitin SODIUM IV Push 2 GM VIAL. IVP SCH (19:00)
[2018-11-10 19:24] LABS: BASO # 0.2 x10^3/uL (0.0-0.2); BASO % 2 % (0-3); EOS # 0.1 x10^3/uL (0.0-0.7); EOS % 1 % (0-3); HEMATOCRIT 42.9 % (39.0-53.0); HEMOGLOBIN 14.2 g/dL (13.0-17.5); LYMPH # 3.2 x10^3/uL (1.0-4.8); LYMPH % 26 % (24-48); MEAN CORPUSCULAR HEMOGLOBIN 29 pg (25-35); MEAN CORPUSCULAR HGB CONC 33 g/dL (31-37); MEAN CORPUSCULAR VOLUME 87 fL (79-100); MONO # 0.7 x10^3/uL (0.0-1.1); MONO % 6 % (0-9); NEUT # 7.9 x10^3/uL (1.8-7.7); NEUT % 65 % (31-73); PLATELET COUNT 286 x10^3/uL (140-400); RED BLOOD COUNT 4.94 x10^6/uL (4.30-5.70); RED CELL DISTRIBUTION WIDTH 15.6 % (11.5-14.5); WHITE BLOOD COUNT 12.1 x10^3/uL (4.0-11.0)
[2018-11-10] MEDS ORDERED: MORPHINE SULFATE 4 MG/ML VIAL. IV ONE (20:00)
[2018-11-10 20:31] LABS: CALCIUM 9.4 mg/dL (8.5-10.1); CREATININE 0.9 mg/dL (0.7-1.3); GFR 93.9; POTASSIUM 3.6 mmol/L (3.5-5.1)
--- NOTE | 2018-11-10 20:41 | RAD ---
Indication:Third digit PIP swelling and purulent drainage. TECHNIQUE: 3 views of left hand COMPARISON: None FINDINGS/ impression: No acute fracture or dislocation. Soft tissue swelling seen at the third digit PIP joint. Punctate calcific density seen in the dorsal aspect of the base of the middle phalanx of the third finger which may represent an avulsion fracture. No soft tissue emphysema. No periosteal reaction or cortical erosion to suggest radiographic signs of osteomyelitis. Electronically signed by: Tru Tapia DO (11/10/2018 8:38 PM) [facility]
[2018-11-10] MEDS ORDERED: IOHEXOL 300 MG/ML 100ML VIAL. IV ONE (20:45)
--- NOTE | 2018-11-10 21:17 | RAD ---
CT left hand with contrast dated 11/10/2018. No comparison available. CLINICAL INDICATION: Left finger swelling and tenosynovitis. Possible abscess. TECHNIQUE: Contiguous axial imaging of the left hand performed following the intravenous demonstration of 75 cc Omnipaque 300. One or more of the following individualized dose reduction techniques were utilized for this examination: 1. Automated exposure control 2. Adjustment of the mA and/or kV according to patient size 3. Use of iterative reconstruction technique. FINDINGS: There is subcutaneous edema throughout the distal third digit, particularly over the level of the PIP joint. There is soft tissue thickening of the flexor tendon and there is some asymmetric soft tissue swelling dorsally at the PIP joint. Mild flexion deformity at the PIP joint the extensor tendon is somewhat ill-defined. Possible small PIP joint effusion. No bony destructive process or periostitis. No well-circumscribed fluid collection to suggest abscess. Visualized soft tissue structures are otherwise unremarkable. No apparent bony abnormality. IMPRESSION: 1. Soft tissue swelling of the third digit with no evidence of underlying abscess or osteomyelitis. 2. There is soft tissue thickening of the flexor tendon of the third digit, raising the question of tenosynovitis. 3. There is possible small effusion at the third PIP joint. Underlying septic joint cannot be excluded. 4. There is ill-definition of the extensor tendon at the level of the third PIP joint with slight flexion deformity. This could be artifact. If there is clinical concern for extensor tendon injury, MRI may better evaluate. Electronically signed by: Qamar Bocanegra MD (11/10/2018 9:14 PM) [facility]
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
[2018-11-10] MEDS ORDERED: ONDANSETRON PF 4 MG/2 ML VIAL. IV PRN (22:00)
[2018-11-10] MEDS ORDERED: DIPHTH,PERTUSS(ACELL),TET TOX 0.5 ML DISP.SYRIN. VAX IM ONE (22:00)
[2018-11-10] MEDS: MORPHINE SULFATE 4 MG/ML VIAL. IV PRN (22:43)
[2018-11-11] VITALS (12 sets, daily range): BP systolic 135–172; BP diastolic 93–114
[2018-11-11] MEDS: MORPHINE SULFATE 4 MG/ML VIAL. IV PRN ×5 (02:15→14:13)
[2018-11-11] MEDS ORDERED: ONDANSETRON PF 4 MG/2 ML VIAL. IV PRN ×2 (09:30→14:45)
[2018-11-11] MEDS ORDERED: ACETAMINOPHEN 500 MG TABLET PO PRN (09:30)
[2018-11-11] MEDS ORDERED: oxyCODONE/APAP 5/325 1 TAB TABLET PO PRN (09:30)
[2018-11-11] MEDS ORDERED: NICOTINE 21MG PATCH. TD PRN (09:30)
[2018-11-11] MEDS ORDERED: MAGNESIUM HYDROXIDE 2,400 MG/30 ML ORAL.SUSP. PO PRN (13:00)
[2018-11-11] MEDS ORDERED: ZOLPIDEM 5 MG TABLET. PO PRN (13:00)
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
[2018-11-11] MEDS ORDERED: PIP/TAZO PER PHARMACY MC PRN (13:15)
[2018-11-11] MEDS ORDERED: VANCOMYCIN PER PHARMACY MC PRN (13:15)
[2018-11-11] MEDS: IV NORMAL SALINE 1000ML BAG 1,000 ML IV SCH ×2 (13:26→21:19)
[2018-11-11] MEDS: POLYETHYLENE GLYCOL 3350 17 GM PACKET. PO SCH (14:00)
[2018-11-11] MEDS: DOCUSATE SODIUM 100 MG CAPSULE. PO SCH (14:00)
[2018-11-11] MEDS ORDERED: VANCOMYCIN 2 GM in IV NORMAL SALINE 500ML BAG 500 ML IV ONE (14:30)
[2018-11-11] MEDS: PIPERACILLIN/TAZOBACTAM 3.375 GM in IV NORMAL SALINE 50ML 50 ML IV SCH ×2 (14:33→21:19)
[2018-11-11] MEDS ORDERED: IV RINGERS,LACTATED 1000ML 1,000 ML IV SCH (14:43)
[2018-11-11] MEDS ORDERED: PROCHLORPERAZINE 10 MG/2 ML VIAL. IV PRN (14:45)
[2018-11-11] MEDS ORDERED: fentaNYL PF VIAL 100 MCG/2 ML VIAL IV PRN ×2 (14:45)
[2018-11-11] MEDS ORDERED: HYDROmorphone 2 MG/ML VIAL IV PRN (14:45)
[2018-11-11] MEDS ORDERED: METOPROLOL TARTRATE 5 MG/5 ML VIAL. IVP ONE (17:20)
[2018-11-11] MEDS: METOPROLOL TARTRATE 5 MG/5 ML VIAL. IVP PRN ×3 (17:43→20:04)
[2018-11-11] MEDS: MORPHINE SULFATE 2 MG/ML VIAL. IV PRN ×2 (19:17→19:59)
[2018-11-11] MEDS ORDERED: MORPHINE SULFATE 2 MG/ML VIAL. IV PRN (19:30)
[2018-11-11] MEDS ORDERED: HYDROmorphone 2 MG/ML VIAL ONE (20:03)
[2018-11-11] MEDS: oxyCODONE/APAP 10/325 1 TAB TABLET PO PRN (22:06)
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
[2018-11-12 00:20] VITALS: BP 136/90
[2018-11-12] MEDS: PIPERACILLIN/TAZOBACTAM 3.375 GM in IV NORMAL SALINE 50ML 50 ML IV SCH ×2 (00:23→06:29)
[2018-11-12] MEDS: fentaNYL PF VIAL 100 MCG/2 ML VIAL IV PRN ×3 (00:30→08:25)
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
[2018-11-12 03:00] VITALS: BP 117/83
[2018-11-12] MEDS ORDERED: VANCOMYCIN 1.25 GM in IV NORMAL SALINE 250ML 250 ML IV SCH (04:00)
[2018-11-12 04:30] LABS: CREATININE 1.1 mg/dL (0.7-1.3); GFR 74.5
[2018-11-12] MEDS: oxyCODONE/APAP 10/325 1 TAB TABLET PO PRN (05:10)
[2018-11-12 07:00] VITALS: BP 121/90
[2018-11-12] MEDS: POLYETHYLENE GLYCOL 3350 17 GM PACKET. PO SCH (09:00)
[2018-11-12] MEDS: DOCUSATE SODIUM 100 MG CAPSULE. PO SCH (09:00)
[2018-11-12] MEDS ORDERED: NAPROXEN 500 MG TABLET PO SCH (10:00)
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
[2018-11-12] MEDS ORDERED: ONDANSETRON PF 4 MG/2 ML VIAL. IV PRN (10:45)
[2018-11-12 11:00] VITALS: BP 138/82
--- NOTE | 2018-11-12 12:38 | PDOC ---
Infectious Disease Note Vital Sign Vital Signs Vital Signs Date Time Temp Pulse Resp B/P (MAP) Pulse Ox O2 Delivery O2 Flow Rate FiO2 11/12/18 11:28 Room Air 11/12/18 11:00 98.0 81 17 138/82 (100) 99 98.0 11/12/18 04:36 10.0 Labs Lab Laboratory Tests Test 11/12/18 03:40 Creatinine 1.1 mg/dL (0.7-1.3) Estimated GFR (Cockcroft-Gault) 74.5 Objective Assessment pt seen, consult dictated Plan Plan of Care / HUBERT RACHEL MD Nov 12, 2018 12:38
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
== END 2018-11-12 13:21 | disposition left against medical advice (07) | DRG 513 ==
LOC: ER 18:09 → ED HOLD 23:23 → 5 SOUTH 11-11 00:16 → OBSVTOIN 11-11 13:11
PROVIDERS: ADMIT Internal Medicine; ATTEND Internal Medicine
PROC: 0PDV0ZZ Extraction of Left Finger Phalanx, Open Approach (ICD-10-PCS; principal; 2018-11-11 18:00)
DX: M00.9 Pyogenic arthritis, unspecified (principal); R65.10 Systemic inflammatory response syndrome (SIRS) of non-infectious origin without acute organ dysfunction; S61.213A Laceration without foreign body of left middle finger without damage to nail, initial encounter; M65.9 Synovitis and tenosynovitis, unspecified; L03.012 Cellulitis of left finger; Y04.0XXA Assault by unarmed brawl or fight, initial encounter; Z87.891 Personal history of nicotine dependence; F41.9 Anxiety disorder, unspecified; F32.9 Major depressive disorder, single episode, unspecified; Z88.8 Allergy status to other drugs, medicaments and biological substances; Z79.899 Other long term (current) drug therapy
CPT/HCPCS: 36415; 73130; 73201; 80048; 82565; 83605; 85025; 85651; 86140; 87071; 87075; 90471; 90715; 96365; 96366; 96375; 96376; A7015; G0378; G0379; J0694; J1170; J2270; J2543; J3010; J3370; J3490; J7030; J7040; J7050; J7120; Q9967; 99285-25; A4461

== ENCOUNTER 2018-12-01 23:36 | Emergency (ER) | payer SELFPAY ==
[~2018-12-01] VITALS: Ht 177.8 cm; Wt 81.6 kg
[2018-12-02 01:29] VITALS: BP 171/96
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
== END 2018-12-02 03:45 | disposition home or self-care (01) ==
LOC: ER 23:36
DX: Z48.01 Encounter for change or removal of surgical wound dressing (principal); R22.32 Localized swelling, mass and lump, left upper limb; F10.20 Alcohol dependence, uncomplicated; Y90.9 Presence of alcohol in blood, level not specified; Z91.041 Radiographic dye allergy status; Z88.8 Allergy status to other drugs, medicaments and biological substances
CPT/HCPCS: 29125; 99283

== ENCOUNTER 2019-08-22 08:11 | Inpatient (IN) | payer SELFPAY ==
[~2019-08-22] VITALS: Ht 177.8 cm; Wt 77.5 kg
[2019-08-22 09:21] LABS: BASO % 0 % (0-3); EOS % 0 % (0-3); HEMATOCRIT 36.2 % (39.0-53.0); LYMPH # 0.9 x10^3/uL (1.0-4.8); LYMPH % 9 % (24-48); MEAN CORPUSCULAR HEMOGLOBIN 28 pg (25-35); MEAN CORPUSCULAR HGB CONC 33 g/dL (31-37); MEAN CORPUSCULAR VOLUME 84 fL (79-100); MONO # 0.4 x10^3/uL (0.0-1.1); MONO % 4 % (0-9); NEUT % 86 % (31-73); PLATELET COUNT 264 x10^3/uL (140-400); RED BLOOD COUNT 4.31 x10^6/uL (4.30-5.70); RED CELL DISTRIBUTION WIDTH 15.8 % (11.5-14.5); WHITE BLOOD COUNT 10.4 x10^3/uL (4.0-11.0)
[2019-08-22] MEDS ORDERED: IV NORMAL SALINE 1000ML BAG 1,000 ML IV ONE (09:30)
[2019-08-22] MEDS ORDERED: cefTRIAXone IV Push 1 GM VIAL. IVP ONE (09:30)
[2019-08-22 09:31] LABS: CALCIUM 8.3 mg/dL (8.5-10.1); CREATININE 1.2 mg/dL (0.7-1.3); GFR 67.1; POTASSIUM 3.4 mmol/L (3.5-5.1)
[2019-08-22 09:36] LABS: ALBUMIN 2.9 g/dL (3.4-5.0); ALBUMIN/GLOBULIN RATIO 0.7 (1.0-1.7); TOTAL BILIRUBIN 0.5 mg/dL (0.2-1.0); TOTAL PROTEIN 7.1 g/dL (6.4-8.2)
[2019-08-22] MEDS ORDERED: CLINDAMYCIN 900MG PREMIX 50 ML IV ONE (10:00)
[2019-08-22] MEDS ORDERED: LIDOCAINE/EPI/TETRACAINE TOPICAL GEL 3 ML. TP ONE (10:00)
[2019-08-22 10:12] LABS: % BANDS 19 % (0-9); % LYMPHS 14 % (24-48); % MONOS 6 % (0-10); % SEGS 61 % (35-66)
[2019-08-22 10:15] LABS: ANISOCYTOSIS SLIGHT; PLT ESTIMATE ADEQUATE (ADEQUATE)
--- NOTE | 2019-08-22 10:58 | PHYS DOC ---
Past Medical History Past Medical History: Hepatitis, MRSA, Other Additional Past Medical Histor: drug/alcohol,methadone abuse,HEP C, heroin use Past Surgical History: Other Additional Past Surgical Histo: R KNEE SX,L 3RD FINGER, left lower leg abscess I&D Smoking Status: Current Every Day Smoker Alcohol Use: Rarely Drug Use: Benzodiazepine, Cocaine, Heroin, Marijuana, Methadone General Adult EDM: Chief Complaint: MULTIPLE COMPLAINTS HPI: HPI: Patient is a 38 year old male with past medical history of heroin abuse who presents with multiple areas of infection. Patient uses IV drugs and has noticed several areas of redness and swelling. He states he generally feels unwell. He had a have his leg drained a couple weeks ago but left the hospital because he needed to use heroin. He is not sure he is having fevers. He states the one on his hand hurts the worst. Review of Systems: Review of Systems: General: Denies fever, chills, sweats.reports fatigue Eyes: Denies drainage, blurred vision, eye redness HENT: Denies rhinorrhea, sore throat, earache Respiratory: Denies cough, shortness of breath, wheezing Cardiac: Denies edema, palpitations, chest pain GI: Denies abdominal pain, Nausea, vomiting MSK: Denies back pain, neck pain Skin: Denies rash, jaundice. Reports multiple areas of redness Neuro: Denies headache, dizziness Psychiatric: Denies SI/HI Heart Score: Risk Factors: Risk Factors: DM, Current or recent (<one month) smoker, HTN, HLP, family history of CAD, obesity. Risk Scores: Score 0 - 3: 2.5% MACE over next 6 weeks - Discharge Home Score 4 - 6: 20.3% MACE over next 6 weeks - Admit for Clinical Observation Score 7 - 10: 72.7% MACE over next 6 weeks - Early Invasive Strategies Current Medications: Current Medications Medications (Trade) Dose Ordered Sig/Guillermo Start Time Stop Time Status Last Admin Dose Admin Ceftriaxone Sodium (Rocephin) 1 gm 1X ONCE 08/22/19 09:30 08/22/19 09:31 DC 08/22/19 10:19 1 GM Clindamycin Phosphate 50 ml @ 100 mls/hr 1X ONCE 08/22/19 10:00 08/22/19 10:29 DC 08/22/19 10:18 100 MLS/HR Sodium Chloride 1,000 ml @ 40 mls/hr 1X ONCE 08/22/19 09:30 08/23/19 10:29 08/22/19 10:18 40 MLS/HR Tetracaine/ Epinephrine/ Lidocaine (Let (Ulah-Zrylcqy-Cvcrv) Gel) 3 ml 1X ONCE 08/22/19 10:00 08/22/19 10:01 DC 08/22/19 10:18 3 ML Allergies: Allergies: Allergies Coded Allergies Type Severity Reaction Last Updated Verified haloperidol Allergy Severe Swelling 11/11/18 Yes I S O L A T I O N *CONTACT* Allergy Unknown 11/18/18 Yes quetiapine Adverse Reaction Intermediate Anaphylaxis 11/11/18 Yes Physical Exam: PE: General: Awake, alert, NAD. Well Nourished, well hydrated. Cooperative HEENT: Atraumatic, EOMI, PERRL, airway patent, moist oral mucosa Neck: Supple, trachea midline Respiratory: CTA bilaterally, normal effort, no wheezing/crackles CV: RRR, no murmur, cap refill <2 GI: Soft, nondistended, nontender, no masses MSK: No obvious deformities Skin: Warm, dry. L leg: opened wound with two sutures in place and purulent /serosanguineous drainage. Right upper arm:3x6 cm area of erythema and induration without fluctuance. Left upper arm: 4x4cm area of erythema and induration without fluctuance. Left hand: 3x3cm raised area of erythema, tenderness, fluctuance, induration Neuro: A&O x3, speech NL, sensory and motor grossly intact, no focal deficits Psych: Normal affect, normal mood, not suicidal or homicidal Current Patient Data: Labs: Laboratory Tests Test 08/22/19 09:00 White Blood Count 10.4 x10^3/uL (4.0-11.0) Red Blood Count 4.31 x10^6/uL (4.30-5.70) Hemoglobin 12.0 g/dL (13.0-17.5) L Hematocrit 36.2 % (39.0-53.0) L Mean Corpuscular Volume 84 fL (79-100) Mean Corpuscular Hemoglobin 28 pg (25-35) Mean Corpuscular Hemoglobin Concent 33 g/dL (31-37) Red Cell Distribution Width 15.8 % (11.5-14.5) H Platelet Count 264 x10^3/uL (140-400) Neutrophils (%) (Auto) 86 % (31-73) H Lymphocytes (%) (Auto) 9 % (24-48) L Monocytes (%) (Auto) 4 % (0-9) Eosinophils (%) (Auto) 0 % (0-3) Basophils (%) (Auto) 0 % (0-3) Neutrophils # (Auto) 9.0 x10^3/uL (1.8-7.7) H Lymphocytes # (Auto) 0.9 x10^3/uL (1.0-4.8) L Monocytes # (Auto) 0.4 x10^3/uL (0.0-1.1) Eosinophils # (Auto) 0.0 x10^3/uL (0.0-0.7) Basophils # (Auto) 0.0 x10^3/uL (0.0-0.2) Segmented Neutrophils % 61 % (35-66) Band Neutrophils % 19 % (0-9) H Lymphocytes % 14 % (24-48) L Monocytes % 6 % (0-10) Platelet Estimate Adequate (ADEQUATE) Anisocytosis Slight Sodium Level 134 mmol/L (136-145) L Potassium Level 3.4 mmol/L (3.5-5.1) L Chloride Level 99 mmol/L (98-107) Carbon Dioxide Level 27 mmol/L (21-32) Anion Gap 8 (6-14) Blood Urea Nitrogen 10 mg/dL (8-26) Creatinine 1.2 mg/dL (0.7-1.3) Estimated GFR (Cockcroft-Gault) 67.1 BUN/Creatinine Ratio 8 (6-20) Glucose Level 147 mg/dL (70-99) H Lactic Acid Level 1.9 mmol/L (0.4-2.0) Calcium Level 8.3 mg/dL (8.5-10.1) L Total Bilirubin 0.5 mg/dL (0.2-1.0) Aspartate Amino Transferase (AST) 30 U/L (15-37) Alanine Aminotransferase (ALT) 30 U/L (16-63) Alkaline Phosphatase 53 U/L (46-116) Total Protein 7.1 g/dL (6.4-8.2) Albumin 2.9 g/dL (3.4-5.0) L Albumin/Globulin Ratio 0.7 (1.0-1.7) L Laboratory Tests 08/22/19 09:00 Laboratory Tests 08/22/19 09:00 Vital Signs: Vital Signs Date Time Temp Pulse Resp B/P (MAP) Pulse Ox O2 Delivery O2 Flow Rate FiO2 08/22/19 08:50 98.3 80 18 127/80 (96) 100 Room Air 98.3 EKG: EKG: [] Radiology/Procedures: Radiology/Procedures: [] Course & Med Decision Making: Course & Med Decision Making Pertinent Labs and Imaging studies reviewed. (See chart for details) Patient is a 38-year-old male who presents to the emergency room with multiple areas of cellulitis and abscess. He appears to have an abscess on his hand w hich will be drained here in the emergency room. He has multiple other areas of cellulitis. This is likely due to his IV heroin abuse. Given the multiple areas of infection he likely will need IV antibiotics. Patient will be admitted for further care and evaluation. Blood cultures will be drawn and sent. [employer] Disclaimer: Minderest Disclaimer: This electronic medical record was generated, in whole or in part, using a voice recognition dictation system. PROCEDURE Procedure Incision/Drainage Performed by: Dr. Alanna Mack Consent: Verbal consent obtained. Risks and benefits: risks, benefits and alternatives were discussed Consent given by: patient and guardian Patient understanding: patient states understanding of the procedure being performed Patient consent: the patient's understanding of the procedure matches consent given Patient identity confirmed: arm band Time out: Immediately prior to procedure a "time out" was called to verify the correct patient, procedure, equipment, pharmacy retail support specialist and site/side marked as required. Type: abscess Location details: Left hand Anesthesia: Let Local anesthetic: Let Anesthetic total: 3 ml Patient sedated: no Scalpel size: 11 Incision type: single straight Complexity: simple Drainage: Purulent Drainage amount: Moderate Patient tolerance: Patient tolerated the procedure well with no immediate complications. Departure Departure Impression: Primary Impression: Cellulitis Additional Impression: Abscess, hand Disposition: ADMITTED INPATIENT Condition: GOOD Referrals: NO PCP (PCP) Scripts No Active Prescriptions or Reported Meds Justicifation of Admission Dx: Justifications for Admission: Justification of Admission Dx: Yes Cellulitis: Cellulitis ALANNA MACK MD Aug 22, 2019 10:58
[2019-08-22 14:04] LABS: BILIRUBIN,URINE NEGATIVE (NEG); CLARITY,URINE CLEAR; COLOR,URINE YELLOW; NITRITE,URINE NEGATIVE (NEG); PH,URINE 6.5 (<5.0-8.0); PROTEIN,URINE NEGATIVE (NEG-TRACE); UROBILINOGEN,URINE 0.2 mg/dL (0.2 mg/dL)
[2019-08-22 14:09] LABS: BACTERIA,URINE 0 /HPF (0-FEW); RBC,URINE 0 /HPF (0-2); WBC,URINE 0 /HPF (0-4)
--- NOTE | 2019-08-22 14:49 | PDOC1 ---
History and Physical Date of Admission Date of Admission DATE: 08/22/19 TIME: 14:46 Source Source: Chart review, Patient History of Present Illness History of Present Illness MR. Johnson is a 38 year old male with past medical history of heroin abuse who presents with multiple areas of infection. Patient uses IV drugs and has noticed several areas of redness and swelling. He states he generally feels unwell. He had a have his leg drained a couple weeks ago but left the hospital because he needed to use heroin. He is not sure he is having fevers. He states the one on his hand hurts the worst. Past Medical History Cardiovascular: No pertinent hx Pulmonary: No pertinent hx GI: No pertinent hx Heme/Onc: No pertinent hx Hepatobiliary: No pertinent hx Psych: Anxiety, Addictions, Depression Rheumatologic: No pertinent hx Infectious disease: Other Renal/: No pertinent hx Endocrine: No pertinent hx Past Surgical History Past Surgical History: No pertinent history Family History Family History: Family History Unknown, Other Social History Smoke: <1 pack per day ALCOHOL: rare Drugs: Marijuana, Heroin, Crystal meth Current Problem List Problem List Problems Medical Problems: (1) Abscess, hand Status: Acute (2) Cellulitis Status: Acute Current Medications Current Medications Current Medications Sodium Chloride 1,000 ml @ 40 mls/hr 1X ONCE IV Last administered on 08/22/19at 10:18; Start 08/22/19 at 09:30; Stop 08/23/19 at 10:29 Ceftriaxone Sodium (Rocephin) 1 gm 1X ONCE IVP Last administered on 08/22/19at 10:19; Start 08/22/19 at 09:30; Stop 08/22/19 at 09:31; Status DC Clindamycin Phosphate 50 ml @ 100 mls/hr 1X ONCE IV Last administered on 08/22/19at 10:18; Start 08/22/19 at 10:00; Stop 08/22/19 at 10:29; Status DC Tetracaine/ Epinephrine/ Lidocaine (Let (Nwin-Nuguoil-Fyzdb) Gel) 3 ml 1X ONCE TP Last administered on 08/22/19at 10:18; Start 08/22/19 at 10:00; Stop 08/22/19 at 10:01; Status DC Active Scripts Active No Active Prescriptions or Reported Medications Allergies Allergies: Coded Allergies: haloperidol (Verified Allergy, Severe, Swelling, 11/11/18) angioedema I S O L A T I O N *CONTACT* (Verified Allergy, Unknown, 11/18/18) mrsa quetiapine (Verified Adverse Reaction, Intermediate, Anaphylaxis, 11/11/18) Patient states that it becomes difficult for him to breath and his throat begins to tighten up. ROS General: YES: Chills, Fatigue, Malaise PSYCHOLOGICAL ROS: No: Anxiety, Behavioral Disorder, Concentration difficultie, Decreased libido, Depression, Disorientation, Hallucinations, Hostility, Irritablity, Memory difficulties, Mood Swings, Obsessive thoughts, Physical abuse, Sexual abuse, Sleep disturbances, Suicidal ideation, Other Eyes: No Blurry vision, No Decreased vision, No Double vision, No Dry eyes, No Excessive tearing, No Eye Pain, No Itchy Eyes, No Loss of vision, No Photophobia, No Scotomata, No Uses contacts, No Uses glasses, No Other HEENT: No: Heacaches, Visual Changes, Hearing change, Nasal congestion, Nasal discharge, Oral lesions, Sinus pain, Sore Throat, Epistaxis, Sneezing, Snoring, Tinnitus, Vertigo, Vocal changes, Other Respiratory: No: Cough, Hemoptysis, Orthopnea, Pleuritic Pain, Shortness of breath, SOB with excertion, Sputum Changes, Stridor, Tachypnea, Wheezing, Other Cardiovascular: No Chest Pain, No Palpitations, No Orthopnea, No Paroxysmal Noc. Dyspnea, No Edema, No Lt Headedness, No Other Gastrointestinal: Yes Nausea; No Vomiting, No Abdominal Pain, No Diarrhea, No Constipation, No Melena, No Hematochezia, No Other Musculoskeletal: Yes Joint Pain, Yes Joint Stiffness; No Gait Disturbance, No Joint Swelling, No Muscle Pain, No Muscular Weakness, No Pain In:, No Swelling In:, No Other Neurological: No Behavorial Changes, No Bowel/Bladder ControlChng, No Confusi on, No Dizziness, No Gait Disturbance, No Headaches, No Impaired Coord/balance, No Memory Loss, No Numbness/Tingling, No Seizures, No Speech Problems, No Tremors, No Visual Changes, No Weakness, No Other Skin: No Dry Skin, No Eczema, No Hair Changes, No Lumps, No Mole Changes, No Mottling, No Nail Changes, No Pruritus, No Rash, No Skin Lesion Changes, No Other, No Acne Physical Exam General: Alert, Cooperative, mild distress HEENT: PERRLA, EOMI, Mucous membr. moist/pink Lungs: Clear to auscultation, Normal air movement Heart: S1S2, no gallops, no murmurs Extremities: No cyanosis, No edema Skin: No rashes, No significant lesion Neuro: Normal speech, Normal tone, Sensation intact Psych/Mental Status: Mood NL Vitals Vitals Vital Signs Date Time Temp Pulse Resp B/P (MAP) Pulse Ox O2 Delivery O2 Flow Rate FiO2 08/22/19 12:45 80 16 130/71 (90) 98 Room Air 08/22/19 08:50 98.3 98.3 Labs Labs Laboratory Tests Test 08/22/19 09:00 08/22/19 13:44 White Blood Count 10.4 x10^3/uL (4.0-11.0) Red Blood Count 4.31 x10^6/uL (4.30-5.70) Hemoglobin 12.0 g/dL (13.0-17.5) Hematocrit 36.2 % (39.0-53.0) Mean Corpuscular Volume 84 fL (79-100) Mean Corpuscular Hemoglobin 28 pg (25-35) Mean Corpuscular Hemoglobin Concent 33 g/dL (31-37) Red Cell Distribution Width 15.8 % (11.5-14.5) Platelet Count 264 x10^3/uL (140-400) Neutrophils (%) (Auto) 86 % (31-73) Lymphocytes (%) (Auto) 9 % (24-48) Monocytes (%) (Auto) 4 % (0-9) Eosinophils (%) (Auto) 0 % (0-3) Basophils (%) (Auto) 0 % (0-3) Neutrophils # (Auto) 9.0 x10^3/uL (1.8-7.7) Lymphocytes # (Auto) 0.9 x10^3/uL (1.0-4.8) Monocytes # (Auto) 0.4 x10^3/uL (0.0-1.1) Eosinophils # (Auto) 0.0 x10^3/uL (0.0-0.7) Basophils # (Auto) 0.0 x10^3/uL (0.0-0.2) Segmented Neutrophils % 61 % (35-66) Band Neutrophils % 19 % (0-9) Lymphocytes % 14 % (24-48) Monocytes % 6 % (0-10) Platelet Estimate Adequate (ADEQUATE) Anisocytosis Slight Sodium Level 134 mmol/L (136-145) Potassium Level 3.4 mmol/L (3.5-5.1) Chloride Level 99 mmol/L (98-107) Carbon Dioxide Level 27 mmol/L (21-32) Anion Gap 8 (6-14) Blood Urea Nitrogen 10 mg/dL (8-26) Creatinine 1.2 mg/dL (0.7-1.3) Estimated GFR (Cockcroft-Gault) 67.1 BUN/Creatinine Ratio 8 (6-20) Glucose Level 147 mg/dL (70-99) Lactic Acid Level 1.9 mmol/L (0.4-2.0) Calcium Level 8.3 mg/dL (8.5-10.1) Total Bilirubin 0.5 mg/dL (0.2-1.0) Aspartate Amino Transf (AST/SGOT) 30 U/L (15-37) Alanine Aminotransferase (ALT/SGPT) 30 U/L (16-63) Alkaline Phosphatase 53 U/L (46-116) Total Protein 7.1 g/dL (6.4-8.2) Albumin 2.9 g/dL (3.4-5.0) Albumin/Globulin Ratio 0.7 (1.0-1.7) Urine Collection Type Unknown Urine Color Yellow Urine Clarity Clear Urine pH 6.5 (<5.0-8.0) Urine Specific [place] <=1.005 (1.000-1.030) Urine Protein Negative mg/dL (NEG-TRACE) Urine Glucose (UA) Negative mg/dL (NEG) Urine Ketones (Stick) Negative mg/dL (NEG) Urine Blood Negative (NEG) Urine Nitrite Negative (NEG) Urine Bilirubin Negative (NEG) Urine Urobilinogen Dipstick 0.2 mg/dL (0.2 mg/dL) Urine Leukocyte Esterase Negative (NEG) Urine RBC 0 /HPF (0-2) Urine WBC 0 /HPF (0-4) Urine Bacteria 0 /HPF (0-FEW) Laboratory Tests Test 08/22/19 09:00 08/22/19 13:44 White Blood Count 10.4 x10^3/uL (4.0-11.0) Red Blood Count 4.31 x10^6/uL (4.30-5.70) Hemoglobin 12.0 g/dL (13.0-17.5) Hematocrit 36.2 % (39.0-53.0) Mean Corpuscular Volume 84 fL (79-100) Mean Corpuscular Hemoglobin 28 pg (25-35) Mean Corpuscular Hemoglobin Concent 33 g/dL (31-37) Red Cell Distribution Width 15.8 % (11.5-14.5) Platelet Count 264 x10^3/uL (140-400) Neutrophils (%) (Auto) 86 % (31-73) Lymphocytes (%) (Auto) 9 % (24-48) Monocytes (%) (Auto) 4 % (0-9) Eosinophils (%) (Auto) 0 % (0-3) Basophils (%) (Auto) 0 % (0-3) Neutrophils # (Auto) 9.0 x10^3/uL (1.8-7.7) Lymphocytes # (Auto) 0.9 x10^3/uL (1.0-4.8) Monocytes # (Auto) 0.4 x10^3/uL (0.0-1.1) Eosinophils # (Auto) 0.0 x10^3/uL (0.0-0.7) Basophils # (Auto) 0.0 x10^3/uL (0.0-0.2) Segmented Neutrophils % 61 % (35-66) Band Neutrophils % 19 % (0-9) Lymphocytes % 14 % (24-48) Monocytes % 6 % (0-10) Platelet Estimate Adequate (ADEQUATE) Anisocytosis Slight Sodium Level 134 mmol/L (136-145) Potassium Level 3.4 mmol/L (3.5-5.1) Chloride Level 99 mmol/L (98-107) Carbon Dioxide Level 27 mmol/L (21-32) Anion Gap 8 (6-14) Blood Urea Nitrogen 10 mg/dL (8-26) Creatinine 1.2 mg/dL (0.7-1.3) Estimated GFR (Cockcroft-Gault) 67.1 BUN/Creatinine Ratio 8 (6-20) Glucose Level 147 mg/dL (70-99) Lactic Acid Level 1.9 mmol/L (0.4-2.0) Calcium Level 8.3 mg/dL (8.5-10.1) Total Bilirubin 0.5 mg/dL (0.2-1.0) Aspartate Amino Transf (AST/SGOT) 30 U/L (15-37) Alanine Aminotransferase (ALT/SGPT) 30 U/L (16-63) Alkaline Phosphatase 53 U/L (46-116) Total Protein 7.1 g/dL (6.4-8.2) Albumin 2.9 g/dL (3.4-5.0) Albumin/Globulin Ratio 0.7 (1.0-1.7) Urine Collection Type Unknown Urine Color Yellow Urine Clarity Clear Urine pH 6.5 (<5.0-8.0) Urine Specific [place] <=1.005 (1.000-1.030) Urine Protein Negative mg/dL (NEG-TRACE) Urine Glucose (UA) Negative mg/dL (NEG) Urine Ketones (Stick) Negative mg/dL (NEG) Urine Blood Negative (NEG) Urine Nitrite Negative (NEG) Urine Bilirubin Negative (NEG) Urine Urobilinogen Dipstick 0.2 mg/dL (0.2 mg/dL) Urine Leukocyte Esterase Negative (NEG) Urine RBC 0 /HPF (0-2) Urine WBC 0 /HPF (0-4) Urine Bacteria 0 /HPF (0-FEW) VTE Prophylaxis Ordered VTE Prophylaxis Devices: No VTE Pharmacological Prophylaxi: Yes Assessment/Plan Assessment/Plan acute pain to 3 areas of abcess heroin abuse, high risk of withdrawl, needs detox and placement in Methdone program, may try DC for tomorrow cellulitis and abcess, IV abx givne, hand abcess lanced, leg wound healing well Justicifation of Admission Dx: Justifications for Admission: Justification of Admission Dx: Yes Cellulitis: Cellulitis BO DING MD Aug 22, 2019 14:49
[2019-08-22] MEDS ORDERED: MORPHINE SULFATE 10 MG/ML VIAL. IV ONE (15:00)
[2019-08-22] MEDS ORDERED: ACETAMINOPHEN 500 MG TABLET PO PRN (15:15)
[2019-08-22] MEDS: METHADONE 10 MG TABLET. PO PRN ×2 (15:19→21:30)
[2019-08-22 15:32] VITALS: BP 154/93
[2019-08-22 19:31] VITALS: BP 135/71
[2019-08-22] MEDS: MORPHINE SULFATE 10 MG/ML VIAL. IV PRN (20:32)
[2019-08-22 22:49] VITALS: BP 133/60
[2019-08-23] MEDS: MORPHINE SULFATE 10 MG/ML VIAL. IV PRN ×5 (00:51→23:53)
[2019-08-23 02:46] VITALS: BP 125/72
[2019-08-23 07:00] VITALS: BP 122/94
--- NOTE | 2019-08-23 08:51 | NUR ---
IP: Pt admitted with several abscess/cellulitis areas. Pt recently had abscess of L leg drained and cultured results with mrsa. Pt to be in contact precautions with active wounds.
[2019-08-23] MEDS: METHADONE 10 MG TABLET. PO PRN ×2 (09:35→19:25)
[2019-08-23 11:00] VITALS: BP 126/86
--- NOTE | 2019-08-23 13:04 | PN ---
DATE: 08/23/2019 CHIEF COMPLAINT: Left arm cellulitis, left leg cellulitis, IV drug abuse. HISTORY OF PRESENT ILLNESS: The patient is a pleasant middle-aged male who we admitted last night with IV drug abuse. He has got infections on his arm and his leg. Currently, the patient is being examined on the medical floor. OBJECTIVE: VITAL SIGNS: Stable. GENERAL: He is alert, cooperative. HEART: Normal S1, S2. LUNGS: Clear. ABDOMEN: Soft. EXTREMITIES: The left arm has cellulitis on the inner aspect of his brachium. The left leg has an old wound that 2 sutures in it. It is not erythematous, but it does have a little bit of drainage. ASSESSMENT/PLAN: IV drug abuse with heroin with the secondary infections. The patient has been admitted. We are giving him IV fluids, IV antibiotics, heroin withdrawal protocol. Consult ID. PROGNOSIS: Guarded. DEISY BLAIR DO DR: KARAN/rere JOB#: [id number] / [id number]
[2019-08-23 15:00] VITALS: BP 124/77
[2019-08-23] MEDS ORDERED: VANCOMYCIN 1.75 GM in IV NORMAL SALINE 500ML BAG 500 ML IV ONE (16:00)
--- NOTE | 2019-08-23 16:49 | NUR ---
SW following. Spoke with RN and reviewed chart. Pt from home. Pt self-pay and being followed by [facility]. Pt seen by Martha with PAT who stated pt to have SUF assessment and referral to CM through [facility]. SW to continue following.
[2019-08-23 19:00] VITALS: BP 135/92
[2019-08-23] MEDS: MEROPENEM 1 GM in IV NORMAL SALINE 100ML 100 ML IV SCH ×2 (19:22→23:57)
[2019-08-23] MEDS: NICOTINE POLACRILEX 2MG GUM PACKAGE of 12. BC PRN (20:26)
--- NOTE | 2019-08-23 20:29 | CONS ---
DATE OF CONSULTATION: 08/23/2019 INFECTIOUS DISEASE CONSULTATION NOTE PATIENT'S ROOM: 664. REQUESTING PHYSICIAN: Michelle Castro DO REASON FOR CONSULTATION: Cellulitis. 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 Most recently, he was admitted with a left lower extremity abscess on 08/08/2019 and underwent I and D. He grew out MRSA, Enterobacter, Strep anginosus, Prevotella and Actinomyces. He was on vancomycin and Zosyn, but apparently went AMA. States 2 days ago, he shot up in his hand in the forearm, developed pain in his left hand, had fevers, chills and sweats, reported back to [facility] on 08/22/2019. States the abscess on the back left of his hand has opened up. He was given a dose of Rocephin and clindamycin. Today, blood culture 1 of 2 returned back positive for gram-positive cocci in chains in 1 of 2 bottles. Currently, he is lying in bed. He is concerned he is going to go into withdrawal. PAST MEDICAL HISTORY: Positive for previous cellulitis, he has a history of anxiety, depression and addiction, cellulitis, wound infections, history of left lower extremity wound and status post I and D. REVIEW OF SYSTEMS: Otherwise negative except for what is mentioned above. ALLERGIES: LISTED HALOPERIDOL AND QUETIAPINE. SOCIAL HISTORY: He is homeless, uses heroin and tobacco. FAMILY HISTORY: Noncontributory. CURRENT MEDICATIONS: Again, he received a dose of Rocephin and a dose of clindamycin. He is on methadone and nicotine gum. PHYSICAL EXAMINATION: VITAL SIGNS: Temperature 98, pulse 85, respirations 18, blood pressure 126/86, satting 96% on room air. CONSTITUTIONAL: He is lying in bed. He is cooperative. He is in no acute distress. HEENT: He has normal conjunctivae. He has an eyebrow piercing on the left. Oral cavity is clear. NECK: Supple. LUNGS: Clear to auscultation. HEART: S1, S2. ABDOMEN: Soft, nontender. No guarding, no rebound. EXTREMITIES: Without clubbing or cyanosis. The dorsal aspect of his left hand has a 2-3 cm fluctuant area, also has warmth and erythema on the medial aspect towards his elbow, but not involving the elbow; similar area on his right forearm. SKIN: Otherwise, warm to touch without signs of generalized rash. NEUROLOGIC: He moves all extremities, answers questions appropriately. LABORATORY VALUES: White count 10.4, hemoglobin 12, platelets of 264, neutrophils 86, lymphs are 9. Creatinine of 1.2, glucose was 147. Normal liver function study test. IMPRESSION: 1. Bacteremia, gram-positive cocci in chains, 1 of 2 bottles. 2. Left hand abscess. 3. Forearm cellulitis bilaterally. 4. 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 RECOMMENDATIONS: For now, we will add meropenem and vancomycin. We will consult Orthopedics for his left hand abscess. Follow up labs and cultures. Dr. Castro, thank you for allowing me to see and participate in the patient's care. If you have any questions, please do not hesitate to contact me. ELYSSA ACEVEDO MD DR: ADRIANNE/rere JOB#: [id number] / [id number] MIRIAM
[2019-08-23] MEDS: VANCOMYCIN PER PHARMACY MC PRN (21:10)
--- NOTE | 2019-08-23 21:11 | NUR ---
Pharmacy Vancomycin Dosing Note S: Consulted to monitor and dose vancomycin started 08/23/19. O: LUCIENCHRISTOPHER is a 38 year old M with Cellulitis, . Other Antibiotics: MERREM LABS: Last BUN: 10 Last Creatinine: 1.2 Creatinine Clearance: 86 mL/min Last WBC: 10.4 Vancomycin Dosing: Dosing Weight: Actual Target Trough: 10-20 A: Based on: VANCO dosing guidelines P: 1. Begin Vancomycin 1750mg LOAD dose, then 1250 mg IV q12h 2. Follow up Trough level on 08/25/19 at 0830 3. Pharmacy will continue to monitor, follow and adjust therapy as needed. JIA KUHN [facility], 08/23/19 [id number]
[2019-08-23 23:00] VITALS: BP 126/78
[2019-08-24 03:00] VITALS: BP 126/85
[2019-08-24] MEDS: METHADONE 10 MG TABLET. PO PRN ×3 (05:10→19:51)
[2019-08-24] MEDS: MORPHINE SULFATE 10 MG/ML VIAL. IV PRN ×4 (05:10→19:51)
[2019-08-24] MEDS: MEROPENEM 1 GM in IV NORMAL SALINE 100ML 100 ML IV SCH ×3 (06:33→21:56)
[2019-08-24 06:44] LABS: BASO # 0.1 x10^3/uL (0.0-0.2); BASO % 1 % (0-3); EOS # 0.3 x10^3/uL (0.0-0.7); EOS % 3 % (0-3); HEMATOCRIT 36.5 % (39.0-53.0); HEMOGLOBIN 12.2 g/dL (13.0-17.5); LYMPH # 2.1 x10^3/uL (1.0-4.8); LYMPH % 20 % (24-48); MEAN CORPUSCULAR HEMOGLOBIN 28 pg (25-35); MEAN CORPUSCULAR HGB CONC 33 g/dL (31-37); MEAN CORPUSCULAR VOLUME 83 fL (79-100); MONO # 0.7 x10^3/uL (0.0-1.1); MONO % 7 % (0-9); NEUT # 7.2 x10^3/uL (1.8-7.7); NEUT % 69 % (31-73); PLATELET COUNT 310 x10^3/uL (140-400); RED CELL DISTRIBUTION WIDTH 15.7 % (11.5-14.5); WHITE BLOOD COUNT 10.5 x10^3/uL (4.0-11.0)
[2019-08-24 07:00] VITALS: BP 103/75
[2019-08-24 07:19] LABS: ALBUMIN 2.7 g/dL (3.4-5.0); ALBUMIN/GLOBULIN RATIO 0.6 (1.0-1.7); CALCIUM 8.5 mg/dL (8.5-10.1); CREATININE 0.8 mg/dL (0.7-1.3); GFR 107.1; POTASSIUM 4.4 mmol/L (3.5-5.1); TOTAL BILIRUBIN 0.2 mg/dL (0.2-1.0)
--- NOTE | 2019-08-24 08:57 | PDOC ---
Infectious Disease Note Subjective Subjective Better. Less pain but still in L forearm and hand No F/c/s/N/v/D/SOA/rash ROS ROS o/w neg Vital Sign Vital Signs Vital Signs Date Time Temp Pulse Resp B/P (MAP) Pulse Ox O2 Delivery O2 Flow Rate FiO2 08/24/19 07:00 98.2 73 20 103/75 (84) 97 Room Air 98.2 Physical Exam PHYSICAL EXAM CONSTITUTIONAL: He is lying in bed. He is cooperative. He is in no acute distress. HEENT: He has normal conjunctivae. He has an eyebrow piercing on the left. Oral cavity is clear. NECK: Supple. LUNGS: Clear to auscultation. HEART: S1, S2. ABDOMEN: Soft, nontender. No guarding, no rebound. EXTREMITIES: Without clubbing or cyanosis. The dorsal aspect of his left hand has a 2-3 cm fluctuant area that has decreased some with evident wrinkling, also has warmth and erythema on the medial aspect towards his elbow with some induration, but not involving the elbow; similar area on his right forearm has improved. SKIN: Otherwise, warm to touch without signs of generalized rash. NEUROLOGIC: He moves all extremities, answers questions appropriately Labs Lab Laboratory Tests Test 08/24/19 06:20 White Blood Count 10.5 x10^3/uL (4.0-11.0) Red Blood Count 4.40 x10^6/uL (4.30-5.70) Hemoglobin 12.2 g/dL (13.0-17.5) Hematocrit 36.5 % (39.0-53.0) Mean Corpuscular Volume 83 fL (79-100) Mean Corpuscular Hemoglobin 28 pg (25-35) Mean Corpuscular Hemoglobin Concent 33 g/dL (31-37) Red Cell Distribution Width 15.7 % (11.5-14.5) Platelet Count 310 x10^3/uL (140-400) Neutrophils (%) (Auto) 69 % (31-73) Lymphocytes (%) (Auto) 20 % (24-48) Monocytes (%) (Auto) 7 % (0-9) Eosinophils (%) (Auto) 3 % (0-3) Basophils (%) (Auto) 1 % (0-3) Neutrophils # (Auto) 7.2 x10^3/uL (1.8-7.7) Lymphocytes # (Auto) 2.1 x10^3/uL (1.0-4.8) Monocytes # (Auto) 0.7 x10^3/uL (0.0-1.1) Eosinophils # (Auto) 0.3 x10^3/uL (0.0-0.7) Basophils # (Auto) 0.1 x10^3/uL (0.0-0.2) Sodium Level 140 mmol/L (136-145) Potassium Level 4.4 mmol/L (3.5-5.1) Chloride Level 105 mmol/L (98-107) Carbon Dioxide Level 28 mmol/L (21-32) Anion Gap 7 (6-14) Blood Urea Nitrogen 12 mg/dL (8-26) Creatinine 0.8 mg/dL (0.7-1.3) Estimated GFR (Cockcroft-Gault) 107.1 BUN/Creatinine Ratio 15 (6-20) Glucose Level 102 mg/dL (70-99) Calcium Level 8.5 mg/dL (8.5-10.1) Total Bilirubin 0.2 mg/dL (0.2-1.0) Aspartate Amino Transf (AST/SGOT) 25 U/L (15-37) Alanine Aminotransferase (ALT/SGPT) 29 U/L (16-63) Alkaline Phosphatase 47 U/L (46-116) Total Protein 7.0 g/dL (6.4-8.2) Albumin 2.7 g/dL (3.4-5.0) Albumin/Globulin Ratio 0.6 (1.0-1.7) Micro Microbiology 08/22/19 Blood Culture - Preliminary, Resulted Objective Assessment 1. Bacteremia, Enterococcus, 1 of 2 bottles. 08/21 possible contamination but have to treat should not cause abscesses in extremities 2. Left hand abscess. 3. Forearm cellulitis bilaterally. 4. 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 5. Cr better Plan Plan of Care Cont meropenem and vancomycin. Awaiting consult from Orthopedics for his left hand abscess/? left forearm. Follow up labs and cultures ELYSSA ACEVEDO MD Aug 24, 2019 08:57
[2019-08-24] MEDS ORDERED: VANCOMYCIN 1.25 GM in IV NORMAL SALINE 250ML 250 ML IV SCH (09:00)
--- NOTE | 2019-08-24 09:19 | PDOC2 ---
CONSULT Date of Consult Date of Consult DATE: 08/24/19 TIME: 09:14 Reason for Consult Reason for Consult: Left upper extremity abscesses Referring Physician Referring Physician: James Identification/Chief Complaint Chief Complaint Left forearm pain Source Source: Chart review, Patient History of Present Illness Reason for Visit: Patient is a 38-year-old heroin user who has had multiple prior I&D's for abscesses, most recently several weeks ago at his left tibial area. He tells me that over the past several days he has noticed a red painful bump develop on the dorsum of his hand as well as over his medial and anterior left forearm. The ER doctor drain the 1 over his left hand and he tells me that it is feeling much better and much less swollen today. He tells me the forearm 1 is starting her morning and he notices that the redness is spreading. He denies any fevers or chills. No other complaints or concerns this morning. Past Medical History Cardiovascular: No pertinent hx Pulmonary: No pertinent hx GI: No pertinent hx Heme/Onc: No pertinent hx Hepatobiliary: No pertinent hx Psych: Anxiety, Addictions, Depression Rheumatologic: No pertinent hx Infectious disease: Other Renal/: No pertinent hx Endocrine: No pertinent hx Past Surgical History Past Surgical History: Other (I&D's for skin abscesses), No pertinent history Family History Family History: Family History Unknown, Other Social History <1 pack per day ALCOHOL: rare Drugs: Marijuana, Heroin, Crystal meth Current Problem List Problem List Problems Medical Problems: (1) Abscess, hand Status: Acute (2) Cellulitis Status: Acute Current Medications Current Medications Current Medications Sodium Chloride 1,000 ml @ 40 mls/hr 1X ONCE IV Last administered on 08/22/19at 10:18; Start 08/22/19 at 09:30; Stop 08/23/19 at 10:29; Status DC Ceftriaxone Sodium (Rocephin) 1 gm 1X ONCE IVP Last administered on 08/22/19 10:19; Start 08/22/19 at 09:30; Stop 08/22/19 at 09:31; Status DC Clindamycin Phosphate 50 ml @ 100 mls/hr 1X ONCE IV Last administered on 08/22/19at 10:18; Start 08/22/19 at 10:00; Stop 08/22/19 at 10:29; Status DC Tetracaine/ Epinephrine/ Lidocaine (Let (Dfnf-Ptpmgdm-Yifbs) Gel) 3 ml 1X ONCE TP Last administered on 08/22/19at 10:18; Start 08/22/19 at 10:00; Stop 08/22/19 at 10:01; Status DC Methadone HCl (Dolophine) 10 mg PRN TID PRN PO MODERATE - SEVERE PAIN Last administered on 08/24/19at 05:10; Start 08/22/19 at 14:45 Morphine Sulfate (Morphine Sulfate) 10 mg 1X ONCE IV Last administered on 08/22/19at 15:20; Start 08/22/19 at 15:00; Stop 08/22/19 at 15:01; Status DC Morphine Sulfate (Morphine Sulfate) 10 mg PRN Q4HRS PRN IV PAIN Last administered on 08/24/19at 05:10; Start 08/22/19 at 15:15 Acetaminophen (Tylenol) 1,000 mg PRN Q6HRS PRN PO MILD PAIN 1-3 Last administered on 08/22/19at 15:20; Start 08/22/19 at 15:15 Nicotine Polacrilex (Nicorette Gum) 1 each PRN Q1HR PRN BC SMOKING CESSATION Last administered on 08/23/19at 20:26; Start 08/22/19 at 18:15 Meropenem 1 gm/ Sodium Chloride 100 ml @ 200 mls/hr Q8HRS IV Last administered on 08/24/19at 06:33; Start 08/23/19 at 15:30 Vancomycin HCl (Vanco Per Pharmacy) 1 each PRN DAILY PRN MC SEE COMMENTS Last administered on 08/23/19at 21:10; Start 08/23/19 at 15:30 Vancomycin HCl 1.75 gm/Sodium Chloride 500 ml @ 250 mls/hr 1X ONCE IV Last administered on 08/23/19at 20:26; Start 08/23/19 at 16:00; Stop 08/23/19 at 17:59; Status DC Vancomycin HCl 1.25 gm/Sodium Chloride 250 ml @ 167 mls/hr Q12H IV ; Start 08/24/19 at 09:00 Vancomycin HCl (Vancomycin Trough Level) 1 each 1X ONCE MC ; Start 08/25/19 at 08:30; Stop 08/25/19 at 08:31 Active Scripts Active No Active Prescriptions or Reported Medications Allergies Allergies: Coded Allergies: haloperidol (Verified Allergy, Severe, Swelling, 11/11/18) angioedema quetiapine (Verified Allergy, Severe, Anaphylaxis, 08/23/19) Patient states that it becomes difficult for him to breath and his throat begins to tighten up. I S O L A T I O N *CONTACT* (Verified Allergy, Unknown, 11/18/18) mrsa ROS General: No: Chills, Night Sweats, Fatigue, Malaise, Appetite, Other PSYCHOLOGICAL ROS: No: Anxiety, Behavioral Disorder, Concentration difficultie, Decreased libido, Depression, Disorientation, Hallucinations, Hostility, Irritablity, Memory difficulties, Mood Swings, Obsessive thoughts, Physical abuse, Sexual abuse, Sleep disturbances, Suicidal ideation, Other Eyes: No Blurry vision, No Decreased vision, No Double vision, No Dry eyes, No Excessive tearing, No Eye Pain, No Itchy Eyes, No Loss of vision, No Photophobia, No Scotomata, No Uses contacts, No Uses glasses, No Other HEENT: No: Heacaches, Visual Changes, Hearing change, Nasal congestion, Nasal discharge, Oral lesions, Sinus pain, Sore Throat, Epistaxis, Sneezing, Snoring, Tinnitus, Vertigo, Vocal changes, Other ALLERGY AND IMMUNOLOGY: No: Hives, Insect Bite Sensitivity, Itchy/Watery Eyes, Nasal Congestion, Post Nasal Drip, Seasonal Allergies, Other Hematological and Lymphatic: No: Bleeding Problems, Blood Clots, Blood Transfu sions, Brusing, Night Sweats, Pallor, Swollen Lymph Nodes, Other ENDOCRINE: No: Breast Changes, Galactorrhea, Hair Pattern Changes, Hot Flashes, Malaise/lethargy, Mood Swings, Palpitations, Polydipsia/polyuria, Skin Changes, Temperature Intolerance, Unexpected Weight Changes, Other Respiratory: No: Cough, Hemoptysis, Orthopnea, Pleuritic Pain, Shortness of breath, SOB with excertion, Sputum Changes, Stridor, Tachypnea, Wheezing, Other Cardiovascular: No Chest Pain, No Palpitations, No Orthopnea, No Paroxysmal Noc. Dyspnea, No Edema, No Lt Headedness, No Other Gastrointestinal: No Nausea, No Vomiting, No Abdominal Pain, No Diarrhea, No Constipation, No Melena, No Hematochezia, No Other Genitourinary: No Dysuria, No Frequency, No Incontinence, No Hematuria, No Retention, No Discharge, No Urgency, No Pain, No Flank Pain, No Other, No , No , No , No , No , No , No Musculoskeletal: Yes Pain In: (Swelling and redness over left medial forearm and dorsum of left hand) Neurological: No Behavorial Changes, No Bowel/Bladder ControlChng, No Confusion, No Dizziness, No Gait Disturbance, No Headaches, No Impaired Coord/balance, No Memory Loss, No Numbness/Tingling, No Seizures, No Speech Problems, No Tremors, No Visual Changes, No Weakness, No Other Skin: No Dry Skin, No Eczema, No Hair Changes, No Lumps, No Mole Changes, No Mottling, No Nail Changes, No Pruritus, No Rash, No Skin Lesion Changes, No Other, No Acne Physical Exam General: Alert, Oriented X3 HEENT: Atraumatic, EOMI Lungs: Other (Respirations are unlabored with symmetric chest rise) Heart: Regular rate Abdomen: Soft, No tenderness Extremities: No edema, Normal pulses Skin: Other (As below) Neuro: Normal speech, Strength at 5/5 X4 ext, Sensation intact Psych/Mental Status: Mental status NL, Mood NL MUSCULOSKELETAL: Other (Examination of his left leg reveals about a 5 cm healing incision with granulation tissue present, no surrounding erythema or purulence. Small amount of serous drainage present. Sutures in place. Ex amination of his left upper extremity reveals a very small area over the dorsum of his hand with a closed 2 to 3 mm laceration over the top of it. He has full range of motion shoulder elbow wrist and fingers. He has a large amount erythema and about a 6 cm diameter raised red tender area over his medial flexor mass of his left forearm. No open wounds there.) Vitals VITALS Vital Signs Date Time Temp Pulse Resp B/P (MAP) Pulse Ox O2 Delivery O2 Flow Rate FiO2 08/24/19 07:00 98.2 73 20 103/75 (84) 97 Room Air 98.2 Labs Labs Laboratory Tests Test 08/22/19 13:44 08/24/19 06:20 Urine Collection Type Unknown Urine Color Yellow Urine Clarity Clear Urine pH 6.5 (<5.0-8.0) Urine Specific [place] <=1.005 (1.000-1.030) Urine Protein Negative mg/dL (NEG-TRACE) Urine Glucose (UA) Negative mg/dL (NEG) Urine Ketones (Stick) Negative mg/dL (NEG) Urine Blood Negative (NEG) Urine Nitrite Negative (NEG) Urine Bilirubin Negative (NEG) Urine Urobilinogen Dipstick 0.2 mg/dL (0.2 mg/dL) Urine Leukocyte Esterase Negative (NEG) Urine RBC 0 /HPF (0-2) Urine WBC 0 /HPF (0-4) Urine Bacteria 0 /HPF (0-FEW) White Blood Count 10.5 x10^3/uL (4.0-11.0) Red Blood Count 4.40 x10^6/uL (4.30-5.70) Hemoglobin 12.2 g/dL (13.0-17.5) Hematocrit 36.5 % (39.0-53.0) Mean Corpuscular Volume 83 fL (79-100) Mean Corpuscular Hemoglobin 28 pg (25-35) Mean Corpuscular Hemoglobin Concent 33 g/dL (31-37) Red Cell Distribution Width 15.7 % (11.5-14.5) Platelet Count 310 x10^3/uL (140-400) Neutrophils (%) (Auto) 69 % (31-73) Lymphocytes (%) (Auto) 20 % (24-48) Monocytes (%) (Auto) 7 % (0-9) Eosinophils (%) (Auto) 3 % (0-3) Basophils (%) (Auto) 1 % (0-3) Neutrophils # (Auto) 7.2 x10^3/uL (1.8-7.7) Lymphocytes # (Auto) 2.1 x10^3/uL (1.0-4.8) Monocytes # (Auto) 0.7 x10^3/uL (0.0-1.1) Eosinophils # (Auto) 0.3 x10^3/uL (0.0-0.7) Basophils # (Auto) 0.1 x10^3/uL (0.0-0.2) Sodium Level 140 mmol/L (136-145) Potassium Level 4.4 mmol/L (3.5-5.1) Chloride Level 105 mmol/L (98-107) Carbon Dioxide Level 28 mmol/L (21-32) Anion Gap 7 (6-14) Blood Urea Nitrogen 12 mg/dL (8-26) Creatinine 0.8 mg/dL (0.7-1.3) Estimated GFR (Cockcroft-Gault) 107.1 BUN/Creatinine Ratio 15 (6-20) Glucose Level 102 mg/dL (70-99) Calcium Level 8.5 mg/dL (8.5-10.1) Total Bilirubin 0.2 mg/dL (0.2-1.0) Aspartate Amino Transf (AST/SGOT) 25 U/L (15-37) Alanine Aminotransferase (ALT/SGPT) 29 U/L (16-63) Alkaline Phosphatase 47 U/L (46-116) Total Protein 7.0 g/dL (6.4-8.2) Albumin 2.7 g/dL (3.4-5.0) Albumin/Globulin Ratio 0.6 (1.0-1.7) Laboratory Tests Test 08/24/19 06:20 White Blood Count 10.5 x10^3/uL (4.0-11.0) Red Blood Count 4.40 x10^6/uL (4.30-5.70) Hemoglobin 12.2 g/dL (13.0-17.5) Hematocrit 36.5 % (39.0-53.0) Mean Corpuscular Volume 83 fL (79-100) Mean Corpuscular Hemoglobin 28 pg (25-35) Mean Corpuscular Hemoglobin Concent 33 g/dL (31-37) Red Cell Distribution Width 15.7 % (11.5-14.5) Platelet Count 310 x10^3/uL (140-400) Neutrophils (%) (Auto) 69 % (31-73) Lymphocytes (%) (Auto) 20 % (24-48) Monocytes (%) (Auto) 7 % (0-9) Eosinophils (%) (Auto) 3 % (0-3) Basophils (%) (Auto) 1 % (0-3) Neutrophils # (Auto) 7.2 x10^3/uL (1.8-7.7) Lymphocytes # (Auto) 2.1 x10^3/uL (1.0-4.8) Monocytes # (Auto) 0.7 x10^3/uL (0.0-1.1) Eosinophils # (Auto) 0.3 x10^3/uL (0.0-0.7) Basophils # (Auto) 0.1 x10^3/uL (0.0-0.2) Sodium Level 140 mmol/L (136-145) Potassium Level 4.4 mmol/L (3.5-5.1) Chloride Level 105 mmol/L (98-107) Carbon Dioxide Level 28 mmol/L (21-32) Anion Gap 7 (6-14) Blood Urea Nitrogen 12 mg/dL (8-26) Creatinine 0.8 mg/dL (0.7-1.3) Estimated GFR (Cockcroft-Gault) 107.1 BUN/Creatinine Ratio 15 (6-20) Glucose Level 102 mg/dL (70-99) Calcium Level 8.5 mg/dL (8.5-10.1) Total Bilirubin 0.2 mg/dL (0.2-1.0) Aspartate Amino Transf (AST/SGOT) 25 U/L (15-37) Alanine Aminotransferase (ALT/SGPT) 29 U/L (16-63) Alkaline Phosphatase 47 U/L (46-116) Total Protein 7.0 g/dL (6.4-8.2) Albumin 2.7 g/dL (3.4-5.0) Albumin/Globulin Ratio 0.6 (1.0-1.7) Assessment/Plan Assessment/Plan Multiple abscesses. He tells me that his pain and redness and swelling at the dorsum of his hand are doing much better, I do not know if that will need further work. I am more concerned over the forearm abscess and I discussed proceeding with an I&D with him. We will order COVID testing per hospital policy, surgery tomorrow morning. VIVI PERDOMO II, MD Aug 24, 2019 09:19
[2019-08-24 11:00] VITALS: BP 114/75
--- NOTE | 2019-08-24 11:39 | PDOC ---
[employer] PROGRESS NOTE Chief Complaint Chief Complaint Left arm cellulitis secondary to IV drug abuse Heroin addiction Left leg infection secondary to heroin injections History of Present Illness History of Present Illness 08/24/2019 Patient seen and examined His left arm really has not changed much He is scheduled to go for an incision and drainage today Discussed with RN Chart reviewed Vitals/I&O Vitals/I&O: Vital Signs Date Time Temp Pulse Resp B/P (MAP) Pulse Ox O2 Delivery O2 Flow Rate FiO2 08/24/19 09:46 19 97 Room Air 08/24/19 07:00 98.2 73 103/75 (84) 98.2 I & O 08/23/19 08/23/19 08/24/19 15:00 23:00 07:00 Intake Total 2150 ml 600 ml Balance 2150 ml 600 ml Physical Exam Physical Exam: CONSTITUTIONAL: He is lying in bed. He is cooperative. He is in no acute distress. HEENT: He has normal conjunctivae. He has an eyebrow piercing on the left. Oral cavity is clear. NECK: Supple. LUNGS: Clear to auscultation. HEART: S1, S2. ABDOMEN: Soft, nontender. No guarding, no rebound. EXTREMITIES: Without clubbing or cyanosis. The dorsal aspect of his left hand has a 2-3 cm fluctuant area that has decreased some with evident wrinkling, also has warmth and erythema on the medial aspect towards his elbow with some induration, but not involving the elbow; similar area on his right forearm has improved. SKIN: Otherwise, warm to touch without signs of generalized rash. NEUROLOGIC: He moves all extremities, answers questions appropriately General: Alert, Oriented X3 Heart: Regular rate Lungs: Clear Abdomen: Soft, No tenderness Extremities: No edema, Normal pulses Skin: Other (As below) Labs Labs: Laboratory Tests Test 08/24/19 06:20 White Blood Count 10.5 x10^3/uL (4.0-11.0) Red Blood Count 4.40 x10^6/uL (4.30-5.70) Hemoglobin 12.2 g/dL (13.0-17.5) Hematocrit 36.5 % (39.0-53.0) Mean Corpuscular Volume 83 fL (79-100) Mean Corpuscular Hemoglobin 28 pg (25-35) Mean Corpuscular Hemoglobin Concent 33 g/dL (31-37) Red Cell Distribution Width 15.7 % (11.5-14.5) Platelet Count 310 x10^3/uL (140-400) Neutrophils (%) (Auto) 69 % (31-73) Lymphocytes (%) (Auto) 20 % (24-48) Monocytes (%) (Auto) 7 % (0-9) Eosinophils (%) (Auto) 3 % (0-3) Basophils (%) (Auto) 1 % (0-3) Neutrophils # (Auto) 7.2 x10^3/uL (1.8-7.7) Lymphocytes # (Auto) 2.1 x10^3/uL (1.0-4.8) Monocytes # (Auto) 0.7 x10^3/uL (0.0-1.1) Eosinophils # (Auto) 0.3 x10^3/uL (0.0-0.7) Basophils # (Auto) 0.1 x10^3/uL (0.0-0.2) Sodium Level 140 mmol/L (136-145) Potassium Level 4.4 mmol/L (3.5-5.1) Chloride Level 105 mmol/L (98-107) Carbon Dioxide Level 28 mmol/L (21-32) Anion Gap 7 (6-14) Blood Urea Nitrogen 12 mg/dL (8-26) Creatinine 0.8 mg/dL (0.7-1.3) Estimated GFR (Cockcroft-Gault) 107.1 BUN/Creatinine Ratio 15 (6-20) Glucose Level 102 mg/dL (70-99) Calcium Level 8.5 mg/dL (8.5-10.1) Total Bilirubin 0.2 mg/dL (0.2-1.0) Aspartate Amino Transf (AST/SGOT) 25 U/L (15-37) Alanine Aminotransferase (ALT/SGPT) 29 U/L (16-63) Alkaline Phosphatase 47 U/L (46-116) Total Protein 7.0 g/dL (6.4-8.2) Albumin 2.7 g/dL (3.4-5.0) Albumin/Globulin Ratio 0.6 (1.0-1.7) Assessment and Plan Assessmemt and Plan Problems Medical Problems: (1) Abscess, hand Status: Acute (2) Cellulitis Status: Acute Left arm cellulitis secondary to IV drug abuse Heroin addiction Left leg infection secondary to heroin injections Plan IV antibiotics He is going for surgery for incision and drainage today Postoperatively he will need wound [facility] meds DVT prophylaxis I told him to please stop using the heroin Prognosis guarded Comment Review of Relevant I have reviewed the following items loulou (where applicable) has been applied. Medications: Current Medications Medications (Trade) Dose Ordered Sig/Guillermo Route PRN Reason Start Time Stop Time Status Last Admin Dose Admin Meropenem 1 gm/ Sodium Chloride 100 ml @ 200 mls/hr Q8HRS IV 08/23/19 15:30 08/24/19 06:33 Vancomycin HCl (Vanco Per Pharmacy) 1 each PRN DAILY PRN MC SEE COMMENTS 08/23/19 15:30 08/23/19 21:10 Vancomycin HCl 1.75 gm/Sodium Chloride 500 ml @ 250 mls/hr 1X ONCE IV 08/23/19 16:00 08/23/19 17:59 DC 08/23/19 20:26 Vancomycin HCl 1.25 gm/Sodium Chloride 250 ml @ 167 mls/hr Q12H IV 08/24/19 09:00 08/24/19 09:45 Justicifation of Admission Dx: Justifications for Admission: Justification of Admission Dx: Yes Cellulitis: Cellulitis DEISY LBAIR III DO Aug 24, 2019 11:39
--- NOTE | 2019-08-24 13:26 | NUR ---
SW following. Reviewed chart and spoke with RN. Pt consulted today for possibly surgery tomorrow for an I&D r/t abscess. COVID pending. SW to continue following.
[2019-08-24] MEDS: VANCOMYCIN PER PHARMACY MC PRN ×2 (13:30→13:41)
--- NOTE | 2019-08-24 14:11 | NUR ---
Wound Care Wound care consult for multiple abscesses. Pt has open abscess to LLE that was I&D on 08/05/2019. [address] Dressed with medihoney, xeroform and foam dressing.Recommend to change every 3 days. Pt let hand and forearm is reddened and swollen, planned I&D for tomorrow. WC will follow up post op.
[2019-08-24 15:00] VITALS: BP 123/71
[2019-08-24] MEDS: VANCOMYCIN 1.25 GM in IV NORMAL SALINE 250ML 250 ML IV SCH (17:49)
[2019-08-24 19:33] VITALS: BP 110/69
[2019-08-24] MEDS: LACTOBACILLUS RHAMNOSUS GG 1 CAPSULE. PO SCH (19:51)
[2019-08-24 22:55] VITALS: BP 140/75
[2019-08-25] VITALS (8 sets, daily range): BP systolic 118–133; BP diastolic 58–88
[2019-08-25] MEDS: MORPHINE SULFATE 10 MG/ML VIAL. IV PRN ×5 (00:14→20:39)
[2019-08-25] MEDS: VANCOMYCIN 1.25 GM in IV NORMAL SALINE 250ML 250 ML IV SCH ×3 (00:19→16:31)
[2019-08-25] MEDS: MEROPENEM 1 GM in IV NORMAL SALINE 100ML 100 ML IV SCH ×3 (05:18→21:45)
[2019-08-25] MEDS: METHADONE 10 MG TABLET. PO PRN ×3 (05:24→20:38)
[2019-08-25] MEDS ORDERED: fentaNYL PF VIAL 100 MCG/2 ML VIAL IV PRN (07:00)
[2019-08-25] MEDS ORDERED: PROCHLORPERAZINE 10 MG/2 ML VIAL. IV PRN (07:00)
[2019-08-25] MEDS ORDERED: MORPHINE SULFATE 2 MG/ML VIAL. IV PRN (07:00)
[2019-08-25] MEDS ORDERED: IV RINGERS,LACTATED 1000ML 1,000 ML IV SCH (07:00)
[2019-08-25] MEDS ORDERED: HYDROmorphone 2 MG/ML VIAL IV PRN (07:00)
[2019-08-25] MEDS ORDERED: fentaNYL PF VIAL 100 MCG/2 ML VIAL ONE (07:42)
[2019-08-25] MEDS ORDERED: PROPOFOL 10 MG/ML (20ML) VIAL. IV ONE (07:42)
[2019-08-25] MEDS ORDERED: LIDOCAINE 2% PF 5 ML VIAL. ONE (07:42)
[2019-08-25] MEDS ORDERED: DEXAMETHASONE SOD PHOS 4 MG/ML VIAL ONE (07:42)
[2019-08-25] MEDS ORDERED: ONDANSETRON PF 4 MG/2 ML VIAL. ONE (07:42)
[2019-08-25] MEDS ORDERED: MIDAZOLAM HCL/PF 2 MG/2 ML VIAL. ONE (08:49)
[2019-08-25] MEDS: LACTOBACILLUS RHAMNOSUS GG 1 CAPSULE. PO SCH ×2 (08:52→20:38)
--- NOTE | 2019-08-25 08:53 | PDOC ---
Infectious Disease Note Subjective Subjective DID NOT SEE IN SURGERY Better. Less pain but still in L forearm and hand No F/c/s/N/v/D/SOA/rash Vital Sign Vital Signs Vital Signs Date Time Temp Pulse Resp B/P (MAP) Pulse Ox O2 Delivery O2 Flow Rate FiO2 08/25/19 07:44 97.5 79 20 125/67 96 Room Air 97.5 Physical Exam PHYSICAL EXAM CONSTITUTIONAL: He is lying in bed. He is cooperative. He is in no acute distress. HEENT: He has normal conjunctivae. He has an eyebrow piercing on the left. Oral cavity is clear. NECK: Supple. LUNGS: Clear to auscultation. HEART: S1, S2. ABDOMEN: Soft, nontender. No guarding, no rebound. EXTREMITIES: Without clubbing or cyanosis. The dorsal aspect of his left hand has a 2-3 cm fluctuant area that has decreased some with evident wrinkling, also has warmth and erythema on the medial aspect towards his elbow with some induration, but not involving the elbow; similar area on his right forearm has improved. SKIN: Otherwise, warm to touch without signs of generalized rash. NEUROLOGIC: He moves all extremities, answers questions appropriately Labs Lab Laboratory Tests Test 08/24/19 11:11 Coronavirus (COVID-19)(PCR) Negative (NEGATIVE) Micro Microbiology 08/22/19 Blood Culture - Preliminary, Resulted Objective Assessment 1. Bacteremia, Enterococcus, 1 of 2 bottles. 08/21 possible contamination but have to treat should not cause abscesses in extremities 2. Left hand abscess. 3. Forearm cellulitis bilaterally. 4. 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 5. Cr better COVID - neg Plan Plan of Care DID NTO SEE IN SURGERY LABS IN AM Cont meropenem and vancomycin. Currently in surgery Follow up labs and cultures ELYSSA ACEVEDO MD Aug 25, 2019 08:53
[2019-08-25 09:14] LABS: VANC TR 19.7 mcg/mL (10.0-20.0)
[2019-08-25] MEDS ORDERED: SEVOFLURANE 31 TO 60 MINUTES. IH ONE (09:16)
--- NOTE | 2019-08-25 09:32 | PDOC4 ---
Operative Note Operative Note Gait procedure: 08/25/2019 Surgeon: Nicanor Perdomo Regional Manager: Jorge Leyva Preoperative diagnosis: #1 left hand abscess 2. Left forearm abscess Postoperative diagnoses: Same Procedures performed: Irrigation debridement of dorsal left hand abscess measuring about 3 cm in diameter Irrigation debridement left volar forearm abscess measuring about 4 cm in diameter Anesthesia: General Findings: Small amount of gross purulence at both sites Specimens: Swabs taken for culture from both sites Tourniquet time: 12 minutes Blood loss: 10 mL Reason for procedure: Patient is a 38-year-old gentleman admitted for cellulitis and abscesses, he is a heroin user who has had problems with this in the past. Please see my consult note for further details. I did discussion of the risks, benefits, and alternatives to the above surgery with him and he elected to proceed. Description of procedure: Patient was greeted in the preoperative area by myself or the correct sites were marked and verified. He was maintained on scheduled antibiotics. He was taken back to the operative suite and once in the operating room, he was transferred gently supine to the operating table and secured bed with all pressure points padded and had successful induction of a general anesthetic. The hand table was attached to the operating room table, nonsterile tourniquet was applied to his left upper arm. We proceeded to prep and drape left upper extremity in usual sterile fashion and conducted our standard preoperative timeout. Tourniquet was then insufflated allowing gravity to exsanguinate. After this, we conducted our standard preoperative timeout. I then began the procedure by making a 1 cm incision over the dorsum of his hand which allowed immediate exposure of hematoma and a small amount of purulent material. I took my swabs at this point. I then irrigated this out with a syringe using about 200 mL of clean fluid. I then used a curette to debride the area followed by further irrigation at the site. After this, I made an incision centered over the abscess at his left forearm and dissected subcutaneous tissue with hemostat and identified a small area of tissue necrosis centrally with some purulence at the site as well. After using hemostat to explore and make sure I break broken up any loculations and appreciated the full extent of the abscess, I used the curette and rondure to debride the wound. Culture swab was taken at this site as well. This wound was then thoroughly irrigated out, I used a total of about 3000 mL at both the sites. After this, hemostasis was ensured with electrocautery. Tourniquet was let down. We then closed these loosely with 2-0 nylon using a mattress stitch in the forearm and a simple interrupted in the hand. Xeroform followed by gauze followed by soft roll and an Anthony wrap were then applied to his left upper extremity. He tolerated surgery well. No complications. Prior to wound closure, all counts correct x2. At the conclusion, he was awakened from anesthesia and transferred gently supine to his hospital bed and taken to PACU in a stable and extubated condition. Posto perative plan is to readmit him to the floor under the care of the hospitalist, and antibiotics per infectious disease, we will await culture results. NICANOR PERDOMO II, MD Aug 25, 2019 09:32
[2019-08-25] MEDS: VANCOMYCIN PER PHARMACY MC PRN (09:36)
--- NOTE | 2019-08-25 09:38 | NUR ---
Pharmacy Vancomycin Dosing Note S: Consulted to monitor and dose vancomycin started 08/23/19. O: NIKUNJCHRISTOPHER is a 38 year old M with Cellulitis, . Other Antibiotics: MERREM LABS: Last BUN: 12 Last Creatinine: 0.8 Creatinine Clearance: >100 mL/min Last WBC: 10.5 Tmax (past 24 hours): 98.7 Microbiology: GPC IN 1 OF 2 (PRELIM ID IS ENTEROCOCCUS) Last Trough level: 19.7 on 08/25/19 at 0830 Vancomycin Dosing: Dosing Weight: Actual Target Trough: 10-20 A: Based on: THERAPEUTIC TROUGH P: 1. Continue Vancomycin 1250 mg IV q8h 2. Follow up Trough level in 5-7 days or if renal function changes 3. Pharmacy will continue to monitor, follow and adjust therapy as needed. JIA KUHN RPH, 08/25/19 0942
[2019-08-25] MEDS: fentaNYL PF VIAL 100 MCG/2 ML VIAL IV PRN ×2 (09:55→10:11)
--- NOTE | 2019-08-25 10:12 | NUR ---
pt transferred to room 428 after surgery. Report called to JASMIN Guevara. All belongings brought down to room.
--- NOTE | 2019-08-25 10:53 | PDOC ---
Infectious Disease Note Subjective Subjective Returned from surgery Some loose stool Better. Less pain but still in L forearm and hand No F/c/s/N/v/SOA/rash Vital Sign Vital Signs Vital Signs Date Time Temp Pulse Resp B/P (MAP) Pulse Ox O2 Delivery O2 Flow Rate FiO2 08/25/19 10:41 98.1 87 18 122/84 (97) 96 Room Air 98.1 08/25/19 09:40 8 Physical Exam PHYSICAL EXAM CONSTITUTIONAL: He is lying in bed. He is cooperative. He is in no acute distress. HEENT: He has normal conjunctivae. He has an eyebrow piercing on the left. Oral cavity is clear. NECK: Supple. LUNGS: Clear to auscultation. HEART: S1, S2. ABDOMEN: Soft, nontender. No guarding, no rebound. EXTREMITIES: Without clubbing or cyanosis. The dorsal aspect of his left hand/forearm dressed on his right forearm has improved. SKIN: Otherwise, warm to touch without signs of generalized rash. NEUROLOGIC: He moves all extremities, answers questions appropriately Labs Lab Laboratory Tests Test 08/24/19 11:11 08/25/19 08:30 Coronavirus (COVID-19)(PCR) Negative (NEGATIVE) Vancomycin Level Trough 19.7 mcg/mL (10.0-20.0) Vancomycin Last Dose Date 08/24/19 Vancomycin Last Dose Time 2100 Micro Microbiology 08/22/19 Blood Culture - Preliminary, Resulted Objective Assessment Procedures performed: Irrigation debridement of dorsal left hand abscess measuring about 3 cm in diameter 08/24 Irrigation debridement left volar forearm abscess measuring about 4 cm in diameter 08/24 Bacteremia, Enterococcus Amp sensitive, 1 of 2 bottles. 08/21 possible contamination but have to treat should not cause abscesses in extremities Left hand abscess. Forearm cellulitis bilaterally. 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 Cr better COVID - neg Plan Plan of Care Cont meropenem and vancomycin. Follow up labs and cultures ELYSSA ACEVEDO MD Aug 25, 2019 10:53
--- NOTE | 2019-08-25 12:07 | NUR ---
SW following. Reviewed chart and spoke with RN. I&D done yesterday. Spoke with Dr. Ramirez and pt to remain on IV abx. Coordinated care with Martha from [facility] and [facility] assessment is completed and pt has been assigned to a dependency case manager through [facility]. Pt transferred to the fourth floor.
[2019-08-26] MEDS: MORPHINE SULFATE 10 MG/ML VIAL. IV PRN ×6 (00:10→23:22)
[2019-08-26 03:00] VITALS: BP 114/76
[2019-08-26] MEDS: VANCOMYCIN 1.25 GM in IV NORMAL SALINE 250ML 250 ML IV SCH ×2 (03:14→11:24)
[2019-08-26 05:00] LABS: CALCIUM 8.8 mg/dL (8.5-10.1); CREATININE 0.9 mg/dL (0.7-1.3); GFR 93.5; POTASSIUM 4.7 mmol/L (3.5-5.1)
[2019-08-26 07:00] VITALS: BP 110/79
[2019-08-26] MEDS: MEROPENEM 1 GM in IV NORMAL SALINE 100ML 100 ML IV SCH ×3 (07:16→21:56)
[2019-08-26] MEDS: METHADONE 10 MG TABLET. PO PRN ×2 (07:19→15:37)
--- NOTE | 2019-08-26 09:30 | PDOC ---
Infectious Disease Note Subjective Subjective Appetite better Better. Less pain but still in L forearm and hand No F/c/s/N/v/SOA/rash ROS ROS o/w neg Vital Sign Vital Signs Vital Signs Date Time Temp Pulse Resp B/P (MAP) Pulse Ox O2 Delivery O2 Flow Rate FiO2 08/26/19 08:00 Room Air 08/26/19 07:00 98.1 75 20 110/79 (89) 96 98.1 08/25/19 09:40 8 Physical Exam PHYSICAL EXAM CONSTITUTIONAL: He is lying in bed. He is cooperative. He is in no acute distress. looks better HEENT: He has normal conjunctivae. He has an eyebrow piercing on the left. Oral cavity is clear. NECK: Supple. LUNGS: Clear to auscultation. HEART: S1, S2. ABDOMEN: Soft, nontender. No guarding, no rebound. EXTREMITIES: Without clubbing or cyanosis. The dorsal aspect of his left hand/forearm dressed on his right forearm has improved. SKIN: Otherwise, warm to touch without signs of generalized rash. NEUROLOGIC: He moves all extremities, answers questions appropriately Labs Lab Laboratory Tests Test 08/26/19 03:55 Sodium Level 137 mmol/L (136-145) Potassium Level 4.7 mmol/L (3.5-5.1) Chloride Level 101 mmol/L (98-107) Carbon Dioxide Level 27 mmol/L (21-32) Anion Gap 9 (6-14) Blood Urea Nitrogen 21 mg/dL (8-26) Creatinine 0.9 mg/dL (0.7-1.3) Estimated GFR (Cockcroft-Gault) 93.5 Glucose Level 117 mg/dL (70-99) Calcium Level 8.8 mg/dL (8.5-10.1) Micro GRAM POSITIVE COCCI PRELIMINARY ID= ENTEROCOCCUS SPECIES on 08/24/19 at 0709 FINAL ID= [ENTEROCOCCUS FAECALIS] ENTEROCOCCUS FAECALIS Streptomycin Synergy Screen S Gentamicin Synergy Screen S ANTIMICROBIAL SUSCEPTIBILITY Final Comment POS COMBO TYPE 45 ENTEROCOCCUS FAECALIS ANTIBIOTIC RESULT INTERPRETATION AMPICILLIN <=2 S DAPTOMYCIN 4 S LINEZOLID <=2 S PENICILLIN 2 S VANCOMYCIN 1 S Microbiology 08/22/19 Blood Culture - Preliminary, Resulted Objective Assessment Procedures performed: Irrigation debridement of dorsal left hand abscess measuring about 3 cm in diameter 08/24 Irrigation debridement left volar forearm abscess measuring about 4 cm in diameter 7/8 Bacteremia, Enterococcus Amp sensitive, 1 of 2 bottles. 08/21 possible contamination but have to treat should not cause abscesses in extremities Left hand abscess. Forearm cellulitis bilaterally LUE abscess. 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 Cr better COVID - neg Plan Plan of Care Cont meropenem and vancomycin. Follow up labs and cultures from 08/23 D/w nursing ELYSSA ACEVEDO MD Aug 26, 2019 09:30
[2019-08-26] MEDS: LACTOBACILLUS RHAMNOSUS GG 1 CAPSULE. PO SCH ×2 (09:50→19:16)
[2019-08-26 11:00] VITALS: BP 137/92
--- NOTE | 2019-08-26 11:01 | PDOC ---
PROGRESS NOTES Chief Complaint Chief Complaint IMPRESSION Left arm cellulitis secondary to IV drug abuse Heroin addiction Left leg infection secondary to heroin injections History of Present Illness History of Present Illness 08/26/2019 Patient seen and examined His left arm really has not changed much incision and drainage 08/23 Discussed with RN Chart reviewed Vitals Vitals Vital Signs Date Time Temp Pulse Resp B/P (MAP) Pulse Ox O2 Delivery O2 Flow Rate FiO2 08/26/19 09:50 16 Room Air 08/26/19 07:00 98.1 75 110/79 (89) 96 98.1 08/25/19 09:40 8 Physical Exam Physical Exam CONSTITUTIONAL: He is lying in bed. He is cooperative. He is in no acute distress. looks better HEENT: He has normal conjunctivae. He has an eyebrow piercing on the left. Oral cavity is clear. NECK: Supple. LUNGS: Clear to auscultation. HEART: S1, S2. ABDOMEN: Soft, nontender. No guarding, no rebound. EXTREMITIES: Without clubbing or cyanosis. The dorsal aspect of his left hand/forearm dressed on his right forearm has improved. SKIN: Otherwise, warm to touch without signs of generalized rash. NEUROLOGIC: He moves all extremities, answers questions appropriately General: Alert, Oriented X3, No acute distress Heart: Regular rate Lungs: Clear Abdomen: Normal bowel sounds, Soft, No tenderness Extremities: No cyanosis, No edema, Normal pulses Skin: Other (As below) Labs LABS Procedure Result BLOOD CULTURE LC Final Final GRAM POSITIVE COCCI PRELIMINARY ID= ENTEROCOCCUS SPECIES on 08/24/19 at 0709 FINAL ID= [ENTEROCOCCUS FAECALIS] ENTEROCOCCUS FAECALIS Streptomycin Synergy Screen S Gentamicin Synergy Screen S ANTIMICROBIAL SUSCEPTIBILITY Final Comment POS COMBO TYPE 45 ENTEROCOCCUS FAECALIS ANTIBIOTIC RESULT INTERPRETATION AMPICILLIN <=2 S DAPTOMYCIN 4 S LINEZOLID <=2 S PENICILLIN 2 S VANCOMYCIN 1 S Unless otherwise specified, Testing Performed by: [address] [address] For Inquires, the Physician may contact the Microbiology department at [phone] Laboratory Tests Test 08/26/19 03:55 Sodium Level 137 mmol/L (136-145) Potassium Level 4.7 mmol/L (3.5-5.1) Chloride Level 101 mmol/L (98-107) Carbon Dioxide Level 27 mmol/L (21-32) Anion Gap 9 (6-14) Blood Urea Nitrogen 21 mg/dL (8-26) Creatinine 0.9 mg/dL (0.7-1.3) Estimated GFR (Cockcroft-Gault) 93.5 Glucose Level 117 mg/dL (70-99) Calcium Level 8.8 mg/dL (8.5-10.1) Assessment and Plan Assessmemt and Plan Problems Medical Problems: (1) Abscess, hand Status: Acute (2) Cellulitis Status: Acute Comment Review of Relevant I have reviewed the following items loulou (where applicable) has been applied. Labs Laboratory Tests Test 08/24/19 11:11 08/25/19 08:30 08/26/19 03:55 Coronavirus (COVID-19)(PCR) Negative (NEGATIVE) Vancomycin Level Trough 19.7 mcg/mL (10.0-20.0) Vancomycin Last Dose Date 08/24/19 Vancomycin Last Dose Time 2100 Sodium Level 137 mmol/L (136-145) Potassium Level 4.7 mmol/L (3.5-5.1) Chloride Level 101 mmol/L (98-107) Carbon Dioxide Level 27 mmol/L (21-32) Anion Gap 9 (6-14) Blood Urea Nitrogen 21 mg/dL (8-26) Creatinine 0.9 mg/dL (0.7-1.3) Estimated GFR (Cockcroft-Gault) 93.5 Glucose Level 117 mg/dL (70-99) Calcium Level 8.8 mg/dL (8.5-10.1) Laboratory Tests Test 08/26/19 03:55 Sodium Level 137 mmol/L (136-145) Potassium Level 4.7 mmol/L (3.5-5.1) Chloride Level 101 mmol/L (98-107) Carbon Dioxide Level 27 mmol/L (21-32) Anion Gap 9 (6-14) Blood Urea Nitrogen 21 mg/dL (8-26) Creatinine 0.9 mg/dL (0.7-1.3) Estimated GFR (Cockcroft-Gault) 93.5 Glucose Level 117 mg/dL (70-99) Calcium Level 8.8 mg/dL (8.5-10.1) Microbiology 08/22/19 Blood Culture - Final, Complete 08/22/19 Antimicrobic Susceptibility - Final, Complete Medications Current Medications Sodium Chloride 1,000 ml @ 40 mls/hr 1X ONCE IV Last administered on 08/22/19at 10:18; Start 08/22/19 at 09:30; Stop 08/23/19 at 10:29; Status DC Ceftriaxone Sodium (Rocephin) 1 gm 1X ONCE IVP Last administered on 08/22/19at 10:19; Start 08/22/19 at 09:30; Stop 08/22/19 at 09:31; Status DC Clindamycin Phosphate 50 ml @ 100 mls/hr 1X ONCE IV Last administered on 08/22/19at 10:18; Start 08/22/19 at 10:00; Stop 08/22/19 at 10:29; Status DC Tetracaine/ Epinephrine/ Lidocaine (Let (Gauc-Jnrogah-Jxdpy) Gel) 3 ml 1X ONCE TP Last administered on 08/22/19at 10:18; Start 08/22/19 at 10:00; Stop 08/22/19 at 10:01; Status DC Methadone HCl (Dolophine) 10 mg PRN TID PRN PO MODERATE - SEVERE PAIN Last administered on 08/26/19at 07:19; Start 08/22/19 at 14:45 Morphine Sulfate (Morphine Sulfate) 10 mg 1X ONCE IV Last administered on 08/22/19 15:20; Start 08/22/19 at 15:00; Stop 08/22/19 at 15:01; Status DC Morphine Sulfate (Morphine Sulfate) 10 mg PRN Q4HRS PRN IV PAIN Last administered on 08/26/19 09:50; Start 08/22/19 at 15:15 Acetaminophen (Tylenol) 1,000 mg PRN Q6HRS PRN PO MILD PAIN 1-3 Last administered on 08/22/19 15:20; Start 08/22/19 at 15:15 Nicotine Polacrilex (Nicorette Gum) 1 each PRN Q1HR PRN BC SMOKING CESSATION Last administered on 08/23/19 20:26; Start 08/22/19 at 18:15 Meropenem 1 gm/ Sodium Chloride 100 ml @ 200 mls/hr Q8HRS IV Last administered on 08/26/19at 07:16; Start 08/23/19 at 15:30 Vancomycin HCl (Vanco Per Pharmacy) 1 each PRN DAILY PRN MC SEE COMMENTS Last administered on 08/25/19at 09:36; Start 08/23/19 at 15:30 Vancomycin HCl 1.75 gm/Sodium Chloride 500 ml @ 250 mls/hr 1X ONCE IV Last administered on 08/23/19 20:26; Start 08/23/19 at 16:00; Stop 08/23/19 at 17:59; Status DC Vancomycin HCl 1.25 gm/Sodium Chloride 250 ml @ 167 mls/hr Q12H IV Last administered on 08/24/19at 09:45; Start 08/24/19 at 09:00; Stop 08/24/19 at 13:37; Status DC Vancomycin HCl (Vancomycin Trough Level) 1 each 1X ONCE MC Last administered on 08/25/19at 08:30; Start 08/25/19 at 08:30; Stop 08/25/19 at 08:31; Status DC Fentanyl Citrate (Fentanyl 2ml Vial) 25 mcg PRN Q5MIN PRN IV MILD PAIN 1-3; Start 08/25/19 at 07:00; Stop 08/25/19 at 15:00; Status DC Fentanyl Citrate (Fentanyl 2ml Vial) 50 mcg PRN Q5MIN PRN IV MODERATE TO SEVERE PAIN Last administered on 08/25/19at 10:11; Start 08/25/19 at 07:00; Stop 08/25/19 at 15:00; Status DC Morphine Sulfate (Morphine Sulfate) 1 mg PRN Q10MIN PRN IV SEVERE PAIN 7-10; Start 08/25/19 at 07:00; Stop 08/25/19 at 15:00; Status DC Ringer's Solution 1,000 ml @ 30 mls/hr Q24H IV Last administered on 08/25/19at 08:00; Start 08/25/19 at 07:00; Stop 08/25/19 at 18:59; Status DC Hydromorphone HCl (Dilaudid) 0.5 mg PRN Q10MIN PRN IV SEV PAIN, Second choice; Start 08/25/19 at 07:00; Stop 08/25/19 at 15:00; Status DC Prochlorperazine Edisylate (Compazine) 5 mg PACU PRN PRN IV NAUSEA, MRX1; Start 08/25/19 at 07:00; Stop 08/25/19 at 15:00; Status DC Vancomycin HCl 1.25 gm/Sodium Chloride 250 ml @ 167 mls/hr Q8H IV Last administered on 08/26/19at 03:14; Start 08/24/19 at 17:00 Lactobacillus Rhamnosus (Culturelle) 1 cap BID PO Last administered on 08/26/19at 09:50; Start 08/24/19 at 21:00 Propofol (Diprivan) 200 mg STK-MED ONCE IV ; Start 08/25/19 at 07:42; Stop 08/25/19 at 07:42; Status DC Lidocaine HCl (Lidocaine Pf 2% Vial) 5 ml STK-MED ONCE .ROUTE ; Start 08/25/19 at 07:42; Stop 08/25/19 at 07:42; Status DC Dexamethasone Sodium Phosphate (Decadron) 4 mg STK-MED ONCE .ROUTE ; Start 08/25/19 at 07:42; Stop 08/25/19 at 07:42; Status DC Ondansetron HCl (Zofran) 4 mg STK-MED ONCE .ROUTE ; Start 08/25/19 at 07:42; Stop 08/25/19 at 07:42; Status DC Fentanyl Citrate (Fentanyl 2ml Vial) 100 mcg STK-MED ONCE .ROUTE ; Start 08/25/19 at 07:42; Stop 08/25/19 at 07:43; Status DC Midazolam HCl (Versed) 2 mg STK-MED ONCE .ROUTE ; Start 08/25/19 at 08:49; Stop 08/25/19 at 08:49; Status DC Sevoflurane (Ultane) 30 ml STK-MED ONCE IH ; Start 08/25/19 at 09:16; Stop 08/25/19 at 09:16; Status DC Active Scripts Active No Active Prescriptions or Reported Medications Vitals/I & O Vital Sign - Last 24 Hours 08/25/19 08/25/19 08/25/19 08/25/19 12:16 12:55 14:55 16:31 Temp 98.0 98.0 Pulse 81 Resp 16 16 18 16 B/P (MAP) 123/84 (97) Pulse Ox 97 O2 Delivery Room Air Room Air Room Air Room Air 08/25/19 08/25/19 08/25/19 08/25/19 17:07 19:00 20:39 21:15 Temp 98.1 98.1 Pulse 78 Resp 16 18 20 16 B/P (MAP) 131/58 (82) Pulse Ox 96 O2 Delivery Room Air Room Air Room Air 08/25/19 08/26/19 08/26/19 08/26/19 23:00 00:10 03:00 04:23 Temp 98.1 97.7 98.1 97.7 Pulse 73 68 Resp 18 24 18 22 B/P (MAP) 133/75 (94) 114/76 (89) Pulse Ox 92 95 O2 Delivery Room Air Room Air Room Air 08/26/19 08/26/19 08/26/19 07:00 08:00 09:50 Temp 98.1 98.1 Pulse 75 Resp 20 16 B/P (MAP) 110/79 (89) Pulse Ox 96 O2 Delivery Room Air Room Air Room Air Intake and Output 08/25/19 08/25/19 08/26/19 15:00 23:00 07:00 Intake Total 700 ml 600 ml 900 ml Output Total 410 ml 700 ml 1500 ml Balance 290 ml -100 ml -600 ml Justicifation of Admission Dx: Justifications for Admission: Justification of Admission Dx: Yes Cellulitis: Cellulitis CHUCK MARCUS MD Aug 26, 2019 11:01
[2019-08-26] MEDS: VANCOMYCIN PER PHARMACY MC PRN (12:29)
[2019-08-26 15:00] VITALS: BP 113/78
--- NOTE | 2019-08-26 16:29 | NUR ---
SW following. Spoke with RN and CM. Reviewed chart. Coordinated care with Martha from [facility]. Pt has pending cultures and is not ready for discharge per ID. Pt can discharge to [facility] through the [facility] on Friday08/30/2019 per PAT. Pt also has a methadone appt at [facility] on 08/30/2019 at 8am as well as an appointment at [facility] on 09/02 per Martha from [facility]. ROSITA to continue following.
--- NOTE | 2019-08-26 18:01 | NUR ---
Wound Care Wound care follow up for post op assessment of left dorsal hand and forearm abscesses. Pt had I&D on 08/[address] Sosa. Wounds closed with sutures. Cleansed, pictured and redressed with contact layer and foam. Pt has dehisced surgical incision on left calf, cleansed wound, applied medihoney, contact layer and foam dressing. WC will continue to follow for leg wound. No other wounds noted. Pt educated on POC and PU prevention.
[2019-08-26 19:00] VITALS: BP 136/76
[2019-08-26] MEDS: VANCOMYCIN 1 GM in IV NORMAL SALINE 250ML 250 ML IV SCH (19:21)
[2019-08-26] MEDS: NICOTINE POLACRILEX 2MG GUM PACKAGE of 12. BC PRN (19:29)
[2019-08-26 23:01] VITALS: BP 145/82
[2019-08-27] MEDS: METHADONE 10 MG TABLET. PO PRN ×4 (00:07→23:29)
[2019-08-27 03:04] VITALS: BP 133/73
[2019-08-27] MEDS: MORPHINE SULFATE 10 MG/ML VIAL. IV PRN ×5 (03:38→23:29)
[2019-08-27] MEDS: VANCOMYCIN 1 GM in IV NORMAL SALINE 250ML 250 ML IV SCH ×3 (03:39→20:46)
[2019-08-27] MEDS ORDERED: LIDO:MAALOX 1:1 20 ML SINGLE DOSE. SWSW ONE (04:30)
[2019-08-27] MEDS: MEROPENEM 1 GM in IV NORMAL SALINE 100ML 100 ML IV SCH ×3 (05:42→21:57)
[2019-08-27 07:15] VITALS: BP 120/88
[2019-08-27] MEDS: FAMOTIDINE 20 MG TABLET. PO SCH ×2 (08:30→20:47)
[2019-08-27] MEDS: LACTOBACILLUS RHAMNOSUS GG 1 CAPSULE. PO SCH ×2 (08:30→20:47)
--- NOTE | 2019-08-27 08:59 | PDOC ---
ORTHO PROGRESS NOTES Subjective Ilan tells me that his arm and hand feels fine, he has no concerns Vitals Vital Signs Date Time Temp Pulse Resp B/P (MAP) Pulse Ox O2 Delivery O2 Flow Rate FiO2 08/27/19 07:15 97.5 63 16 120/88 (99) 96 Room Air 97.5 Labs Laboratory Tests Test 08/26/19 03:55 Sodium Level 137 mmol/L (136-145) Potassium Level 4.7 mmol/L (3.5-5.1) Chloride Level 101 mmol/L (98-107) Carbon Dioxide Level 27 mmol/L (21-32) Anion Gap 9 (6-14) Blood Urea Nitrogen 21 mg/dL (8-26) Creatinine 0.9 mg/dL (0.7-1.3) Estimated GFR (Cockcroft-Gault) 93.5 Glucose Level 117 mg/dL (70-99) Calcium Level 8.8 mg/dL (8.5-10.1) Notes He is awake and alert, sitting in bed eating breakfast. Examination of his left hand and left forearm reveal very little drainage, the surrounding soft tissues look much better, I really do not appreciate any erythema today. His incisions are healing appropriately. Assessment and Plan Wound care was discussed with him. He is awaiting placement at a rehab facility. He can follow-up with me in 2 weeks. VIVI PERDOMO II, MD Aug 27, 2019 08:59
--- NOTE | 2019-08-27 09:31 | PDOC ---
PROGRESS NOTES Chief Complaint Chief Complaint IMPRESSION Left arm cellulitis secondary to IV drug abuse Heroin addiction Left leg infection secondary to heroin injections CONTINUE MEROPENUM, VANC IV PLACEMENT NEEDED IS HOMELESS History of Present Illness History of Present Illness 08/26/2019 Patient seen and examined His left arm really has not changed much incision and drainage 08/23 Discussed with RN Chart reviewed Vitals Vitals Vital Signs Date Time Temp Pulse Resp B/P (MAP) Pulse Ox O2 Delivery O2 Flow Rate FiO2 08/27/19 07:15 97.5 63 16 120/88 (99) 96 Room Air 97.5 Physical Exam Physical Exam CONSTITUTIONAL: He is lying in bed. He is cooperative. He is in no acute distress. looks better HEENT: He has normal conjunctivae. He has an eyebrow piercing on the left. Oral cavity is clear. NECK: Supple. LUNGS: Clear to auscultation. HEART: S1, S2. ABDOMEN: Soft, nontender. No guarding, no rebound. EXTREMITIES: Without clubbing or cyanosis. The dorsal aspect of his left hand/forearm dressed on his right forearm has improved. SKIN: Otherwise, warm to touch without signs of generalized rash. NEUROLOGIC: He moves all extremities, answers questions appropriately General: Alert, Oriented X3, Cooperative, No acute distress Heart: Regular rate, Normal S1 Lungs: Clear Abdomen: Normal bowel sounds, Soft, No tenderness Extremities: No cyanosis, No edema, Normal pulses Skin: Other (As below) Labs LABS --- -------- BLOOD CULTURE LC Final Final GRAM POSITIVE COCCI PRELIMINARY ID= ENTEROCOCCUS SPECIES on 08/24/19 at 0709 FINAL ID= [ENTEROCOCCUS FAECALIS] ENTEROCOCCUS FAECALIS Streptomycin Synergy Screen S Gentamicin Synergy Screen S ANTIMICROBIAL SUSCEPTIBILITY Final Comment POS COMBO TYPE 45 ENTEROCOCCUS FAECALIS ANTIBIOTIC RESULT INTERPRETATION AMPICILLIN <=2 S DAPTOMYCIN 4 S LINEZOLID <=2 S PENICILLIN 2 S VANCOMYCIN 1 S Unless otherwise specified, Testing Performed by: [address] [address] For Inquires, the Physician may contact the Microbiology department at [phone] -- END OF REPORT WOUND NO PCP CORRINA ASTORGA MD ORDERED: ISABELL/AEROB/GS COMMENTS: #2 LEFT HAND SWAB Procedure Result GRAM STAIN Final Final NO ORGANISMS SEEN. SQUAMOUS EPI CELL:NONE SEEN PMN (WBCs):RARE ANAEROBIC-AEROBIC CULTURE Preliminary Preliminary No Growth on 08/26/19 at 1234 No Growth on 08/27/19 at 1227 Unless otherwise specified, Testing Performed by: [facility] [address] [place] [address] For Inquires, the Physician may contact the Microbiology department at [phone] Assessment and Plan Assessmemt and Plan Problems Medical Problems: (1) Abscess, hand Status: Acute (2) Cellulitis Status: Acute Comment Review of Relevant I have reviewed the following items loulou (where applicable) has been applied. Labs Laboratory Tests Test 08/26/19 03:55 Sodium Level 137 mmol/L (136-145) Potassium Level 4.7 mmol/L (3.5-5.1) Chloride Level 101 mmol/L (98-107) Carbon Dioxide Level 27 mmol/L (21-32) Anion Gap 9 (6-14) Blood Urea Nitrogen 21 mg/dL (8-26) Creatinine 0.9 mg/dL (0.7-1.3) Estimated GFR (Cockcroft-Gault) 93.5 Glucose Level 117 mg/dL (70-99) Calcium Level 8.8 mg/dL (8.5-10.1) Microbiology 08/25/19 Gram Stain - Final, Resulted 08/25/19 Aerobic and Anaerobic Culture - Preliminary, Resulted 08/22/19 Blood Culture - Final, Complete 08/22/19 Antimicrobic Susceptibility - Final, Complete Medications Current Medications Sodium Chloride 1,000 ml @ 40 mls/hr 1X ONCE IV Last administered on 08/22/19at 10:18; Start 08/22/19 at 09:30; Stop 08/23/19 at 10:29; Status DC Ceftriaxone Sodium (Rocephin) 1 gm 1X ONCE IVP Last administered on 08/22/19at 10:19; Start 08/22/19 at 09:30; Stop 08/22/19 at 09:31; Status DC Clindamycin Phosphate 50 ml @ 100 mls/hr 1X ONCE IV Last administered on 08/22/19at 10:18; Start 08/22/19 at 10:00; Stop 08/22/19 at 10:29; Status DC Tetracaine/ Epinephrine/ Lidocaine (Let (Xoqv-Ooqedaf-Gojed) Gel) 3 ml 1X ONCE TP Last administered on 08/22/19at 10:18; Start 08/22/19 at 10:00; Stop 08/22/19 at 10:01; Status DC Methadone HCl (Dolophine) 10 mg PRN TID PRN PO MODERATE - SEVERE PAIN Last administered on 08/27/19 08:31; Start 08/22/19 at 14:45 Morphine Sulfate (Morphine Sulfate) 10 mg 1X ONCE IV Last administered on 08/22/19 15:20; Start 08/22/19 at 15:00; Stop 08/22/19 at 15:01; Status DC Morphine Sulfate (Morphine Sulfate) 10 mg PRN Q4HRS PRN IV PAIN Last administered on 08/27/19 03:38; Start 08/22/19 at 15:15 Acetaminophen (Tylenol) 1,000 mg PRN Q6HRS PRN PO MILD PAIN 1-3 Last administered on 08/22/19 15:20; Start 08/22/19 at 15:15 Nicotine Polacrilex (Nicorette Gum) 1 each PRN Q1HR PRN BC SMOKING CESSATION Last administered on 08/26/19 19:29; Start 08/22/19 at 18:15 Meropenem 1 gm/ Sodium Chloride 100 ml @ 200 mls/hr Q8HRS IV Last administered on 08/27/19at 05:42; Start 08/23/19 at 15:30 Vancomycin HCl (Vanco Per Pharmacy) 1 each PRN DAILY PRN MC SEE COMMENTS Last administered on 08/26/19 12:29; Start 08/23/19 at 15:30 Vancomycin HCl 1.75 gm/Sodium Chloride 500 ml @ 250 mls/hr 1X ONCE IV Last administered on 08/23/19at 20:26; Start 08/23/19 at 16:00; Stop 08/23/19 at 17:59; Status DC Vancomycin HCl 1.25 gm/Sodium Chloride 250 ml @ 167 mls/hr Q12H IV Last administered on 08/24/19at 09:45; Start 08/24/19 at 09:00; Stop 08/24/19 at 13:37; Status DC Vancomycin HCl (Vancomycin Trough Level) 1 each 1X ONCE MC Last administered on 08/25/19at 08:30; Start 08/25/19 at 08:30; Stop 08/25/19 at 08:31; Status DC Fentanyl Citrate (Fentanyl 2ml Vial) 25 mcg PRN Q5MIN PRN IV MILD PAIN 1-3; Start 08/25/19 at 07:00; Stop 08/25/19 at 15:00; Status DC Fentanyl Citrate (Fentanyl 2ml Vial) 50 mcg PRN Q5MIN PRN IV MODERATE TO SEVERE PAIN Last administered on 08/25/19at 10:11; Start 08/25/19 at 07:00; Stop 08/25/19 at 15:00; Status DC Morphine Sulfate (Morphine Sulfate) 1 mg PRN Q10MIN PRN IV SEVERE PAIN 7-10; Start 08/25/19 at 07:00; Stop 08/25/19 at 15:00; Status DC Ringer's Solution 1,000 ml @ 30 mls/hr Q24H IV Last administered on 08/25/19at 08:00; Start 08/25/19 at 07:00; Stop 08/25/19 at 18:59; Status DC Hydromorphone HCl (Dilaudid) 0.5 mg PRN Q10MIN PRN IV SEV PAIN, Second choice; Start 08/25/19 at 07:00; Stop 08/25/19 at 15:00; Status DC Prochlorperazine Edisylate (Compazine) 5 mg PACU PRN PRN IV NAUSEA, MRX1; Start 08/25/19 at 07:00; Stop 08/25/19 at 15:00; Status DC Vancomycin HCl 1.25 gm/Sodium Chloride 250 ml @ 167 mls/hr Q8H IV Last administered on 08/26/19at 11:24; Start 08/24/19 at 17:00; Stop 08/26/19 at 12:32; Status DC Lactobacillus Rhamnosus (Culturelle) 1 cap BID PO Last administered on 08/27/19at 08:30; Start 08/24/19 at 21:00 Propofol (Diprivan) 200 mg STK-MED ONCE IV ; Start 08/25/19 at 07:42; Stop 08/25/19 at 07:42; Status DC Lidocaine HCl (Lidocaine Pf 2% Vial) 5 ml STK-MED ONCE .ROUTE ; Start 08/25/19 at 07:42; Stop 08/25/19 at 07:42; Status DC Dexamethasone Sodium Phosphate (Decadron) 4 mg STK-MED ONCE .ROUTE ; Start 08/25/19 at 07:42; Stop 08/25/19 at 07:42; Status DC Ondansetron HCl (Zofran) 4 mg STK-MED ONCE .ROUTE ; Start 08/25/19 at 07:42; Stop 08/25/19 at 07:42; Status DC Fentanyl Citrate (Fentanyl 2ml Vial) 100 mcg STK-MED ONCE .ROUTE ; Start 08/25/19 at 07:42; Stop 08/25/19 at 07:43; Status DC Midazolam HCl (Versed) 2 mg STK-MED ONCE .ROUTE ; Start 08/25/19 at 08:49; Stop 08/25/19 at 08:49; Status DC Sevoflurane (Ultane) 30 ml STK-MED ONCE IH ; Start 08/25/19 at 09:16; Stop 08/25/19 at 09:16; Status DC Vancomycin HCl 1 gm/Sodium Chloride 250 ml @ 250 mls/hr Q8H IV Last administered on 08/27/19at 03:39; Start 08/26/19 at 20:00 Multi-Ingredient Mouthwash/Gargle (Gi Cocktail) 20 ml 1X ONCE SWSW Last administered on 08/27/19at 04:31; Start 08/27/19 at 04:30; Stop 08/27/19 at 04:31; Status DC Famotidine (Pepcid) 20 mg BID PO Last administered on 08/27/19at 08:30; Start 08/27/19 at 09:00 Active Scripts Active No Active Prescriptions or Reported Medications Vitals/I & O Vital Sign - Last 24 Hours 08/26/19 08/26/19 08/26/19 08/26/19 09:50 11:00 11:17 14:53 Temp 97.8 97.8 Pulse 71 Resp 16 18 16 16 B/P (MAP) 137/92 (107) Pulse Ox 97 O2 Delivery Room Air Room Air Room Air 08/26/19 08/26/19 08/26/19 08/26/19 15:00 15:38 19:00 19:18 Temp 97.9 97.7 97.9 97.7 Pulse 79 74 Resp 18 16 18 B/P (MAP) 113/78 (90) 136/76 (96) Pulse Ox 97 95 O2 Delivery Room Air Room Air Room Air 08/26/19 08/26/19 08/26/19 08/26/19 19:30 19:48 23:01 23:22 Temp 98.1 98.1 Pulse 61 Resp 18 B/P (MAP) 145/82 (103) Pulse Ox 99 O2 Delivery Room Air Room Air Room Air Room Air 08/27/19 08/27/19 08/27/19 08/27/19 00:07 03:04 03:38 04:11 Temp 97.5 97.5 Pulse 62 Resp 18 B/P (MAP) 133/73 (93) Pulse Ox 98 O2 Delivery Room Air Room Air Room Air Room Air 08/27/19 08/27/19 07:15 07:15 Temp 97.5 97.5 Pulse 63 Resp 16 B/P (MAP) 120/88 (99) Pulse Ox 96 O2 Delivery Room Air Room Air Intake and Output 08/26/19 08/26/19 08/27/19 14:59 22:59 06:59 Intake Total 790 ml 450 ml Output Total 1750 ml Balance 790 ml 450 ml -1750 ml Justicifation of Admission Dx: Justifications for Admission: Justification of Admission Dx: Yes Cellulitis: Cellulitis CHUCK MARCUS MD Aug 27, 2019 09:30
--- NOTE | 2019-08-27 11:02 | PDOC ---
Infectious Disease Note Subjective Subjective Appetite better Better. Less pain No F/c/s/N/v/SOA/rash Vital Sign Vital Signs Vital Signs Date Time Temp Pulse Resp B/P (MAP) Pulse Ox O2 Delivery O2 Flow Rate FiO2 08/27/19 09:43 Room Air 08/27/19 07:15 97.5 63 16 120/88 (99) 96 97.5 Physical Exam PHYSICAL EXAM CONSTITUTIONAL: He is lying in bed. He is cooperative. He is in no acute distress. looks better HEENT: He has normal conjunctivae. He has an eyebrow piercing on the left. Oral cavity is clear. NECK: Supple. LUNGS: Clear to auscultation. HEART: S1, S2. ABDOMEN: Soft, nontender. No guarding, no rebound. EXTREMITIES: Without clubbing or cyanosis. The dorsal aspect of his left hand/forearm dressed with bandages and clean His right forearm has improved. SKIN: Otherwise, warm to touch without signs of generalized rash. NEUROLOGIC: He moves all extremities, answers questions appropriately Labs Micro GRAM POSITIVE COCCI PRELIMINARY ID= ENTEROCOCCUS SPECIES on 08/24/19 at 0709 FINAL ID= [ENTEROCOCCUS FAECALIS] ENTEROCOCCUS FAECALIS Streptomycin Synergy Screen S Gentamicin Synergy Screen S ANTIMICROBIAL SUSCEPTIBILITY Final Comment POS COMBO TYPE 45 ENTEROCOCCUS FAECALIS ANTIBIOTIC RESULT INTERPRETATION AMPICILLIN <=2 S DAPTOMYCIN 4 S LINEZOLID <=2 S PENICILLIN 2 S VANCOMYCIN 1 S Microbiology 08/22/19 Blood Culture - Preliminary, Resulted Objective Assessment Procedures performed: Irrigation debridement of dorsal left hand abscess measuring about 3 cm in diameter 08/24 Irrigation debridement left volar forearm abscess measuring about 4 cm in diameter 08/24 Bacteremia, Enterococcus Amp sensitive, 1 of 2 bottles. 08/21 possible contamination but have to treat should not cause abscesses in extremities Left hand abscess. Forearm cellulitis bilaterally LUE abscess. 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 Cr better COVID - neg Plan Plan of Care Cont meropenem (likely wean if cults neg 08/27) and cont vancomycin for now Follow up cultures from 08/23 D/w nursing ELYSSA ACEVEDO MD Aug 27, 2019 11:02
[2019-08-27 11:15] VITALS: BP 123/81
[2019-08-27] MEDS: VANCOMYCIN PER PHARMACY MC PRN (12:31)
--- NOTE | 2019-08-27 14:49 | NUR ---
SW following. Spoke with RN and CM. Reviewed chart. Coordinated care with Dr. Ramirez and Dr. Rodriguez. Pt not ready for discharge per ID. Pt can discharge to [facility] the [facility] on Friday08/30/2019 per PAT. Pt also has a methadone appt at [facility] on 08/30/2019 at 8am as well as an appointment at [facility] on 09/02 per Martha from Pat. SW to continue following.
[2019-08-27 15:00] VITALS: BP 131/93
[2019-08-27 19:50] VITALS: BP 116/86
[2019-08-27 23:00] VITALS: BP 122/80
[2019-08-28] MEDS: VANCOMYCIN 1 GM in IV NORMAL SALINE 250ML 250 ML IV SCH (03:38)
[2019-08-28 03:45] VITALS: BP 126/76
[2019-08-28] MEDS: MORPHINE SULFATE 10 MG/ML VIAL. IV PRN ×5 (03:45→21:34)
[2019-08-28 04:51] LABS: BASO # 0.1 x10^3/uL (0.0-0.2); BASO % 1 % (0-3); EOS # 0.6 x10^3/uL (0.0-0.7); EOS % 7 % (0-3); HEMATOCRIT 36.7 % (39.0-53.0); HEMOGLOBIN 12.1 g/dL (13.0-17.5); LYMPH # 3.1 x10^3/uL (1.0-4.8); LYMPH % 34 % (24-48); MEAN CORPUSCULAR HEMOGLOBIN 28 pg (25-35); MEAN CORPUSCULAR HGB CONC 33 g/dL (31-37); MEAN CORPUSCULAR VOLUME 84 fL (79-100); MONO # 0.7 x10^3/uL (0.0-1.1); MONO % 8 % (0-9); NEUT # 4.6 x10^3/uL (1.8-7.7); NEUT % 50 % (31-73); PLATELET COUNT 357 x10^3/uL (140-400); RED BLOOD COUNT 4.38 x10^6/uL (4.30-5.70); RED CELL DISTRIBUTION WIDTH 15.5 % (11.5-14.5); WHITE BLOOD COUNT 9.1 x10^3/uL (4.0-11.0)
[2019-08-28 05:42] LABS: ALBUMIN/GLOBULIN RATIO 0.7 (1.0-1.7); CALCIUM 9.1 mg/dL (8.5-10.1); CREATININE 0.9 mg/dL (0.7-1.3); GFR 93.5; POTASSIUM 4.6 mmol/L (3.5-5.1); TOTAL BILIRUBIN 0.1 mg/dL (0.2-1.0); TOTAL PROTEIN 7.4 g/dL (6.4-8.2)
[2019-08-28] MEDS: MEROPENEM 1 GM in IV NORMAL SALINE 100ML 100 ML IV SCH (05:59)
[2019-08-28] MEDS: NICOTINE POLACRILEX 2MG GUM PACKAGE of 12. BC PRN ×3 (06:05→21:33)
[2019-08-28 07:15] VITALS: BP 115/75
[2019-08-28] MEDS: METHADONE 10 MG TABLET. PO PRN ×3 (07:27→23:53)
[2019-08-28] MEDS: LACTOBACILLUS RHAMNOSUS GG 1 CAPSULE. PO SCH ×2 (08:30→21:33)
[2019-08-28] MEDS: FAMOTIDINE 20 MG TABLET. PO SCH ×2 (08:30→21:33)
--- NOTE | 2019-08-28 10:01 | PDOC ---
Infectious Disease Note Subjective Subjective Appetite better Better. Less pain No F/c/s/N/v/SOA/rash Vital Sign Vital Signs Vital Signs Date Time Temp Pulse Resp B/P (MAP) Pulse Ox O2 Delivery O2 Flow Rate FiO2 08/28/19 08:29 Room Air 08/28/19 07:15 97.9 85 16 115/75 (88) 97 97.9 Physical Exam PHYSICAL EXAM CONSTITUTIONAL: He is lying in bed. He is cooperative. He is in no acute distress. looks better HEENT: He has normal conjunctivae. He has an eyebrow piercing on the left. Oral cavity is clear. NECK: Supple. LUNGS: Clear to auscultation. HEART: S1, S2. ABDOMEN: Soft, nontender. No guarding, no rebound. EXTREMITIES: Without clubbing or cyanosis. The dorsal aspect of his left hand/forearm wounds very clean - suture His right forearm has improved. SKIN: Otherwise, warm to touch without signs of generalized rash. NEUROLOGIC: He moves all extremities, answers questions appropriately Labs Lab Laboratory Tests Test 08/28/19 04:10 White Blood Count 9.1 x10^3/uL (4.0-11.0) Red Blood Count 4.38 x10^6/uL (4.30-5.70) Hemoglobin 12.1 g/dL (13.0-17.5) Hematocrit 36.7 % (39.0-53.0) Mean Corpuscular Volume 84 fL (79-100) Mean Corpuscular Hemoglobin 28 pg (25-35) Mean Corpuscular Hemoglobin Concent 33 g/dL (31-37) Red Cell Distribution Width 15.5 % (11.5-14.5) Platelet Count 357 x10^3/uL (140-400) Neutrophils (%) (Auto) 50 % (31-73) Lymphocytes (%) (Auto) 34 % (24-48) Monocytes (%) (Auto) 8 % (0-9) Eosinophils (%) (Auto) 7 % (0-3) Basophils (%) (Auto) 1 % (0-3) Neutrophils # (Auto) 4.6 x10^3/uL (1.8-7.7) Lymphocytes # (Auto) 3.1 x10^3/uL (1.0-4.8) Monocytes # (Auto) 0.7 x10^3/uL (0.0-1.1) Eosinophils # (Auto) 0.6 x10^3/uL (0.0-0.7) Basophils # (Auto) 0.1 x10^3/uL (0.0-0.2) Sodium Level 138 mmol/L (136-145) Potassium Level 4.6 mmol/L (3.5-5.1) Chloride Level 101 mmol/L (98-107) Carbon Dioxide Level 29 mmol/L (21-32) Anion Gap 8 (6-14) Blood Urea Nitrogen 25 mg/dL (8-26) Creatinine 0.9 mg/dL (0.7-1.3) Estimated GFR (Cockcroft-Gault) 93.5 BUN/Creatinine Ratio 28 (6-20) Glucose Level 77 mg/dL (70-99) Calcium Level 9.1 mg/dL (8.5-10.1) Total Bilirubin 0.1 mg/dL (0.2-1.0) Aspartate Amino Transf (AST/SGOT) 47 U/L (15-37) Alanine Aminotransferase (ALT/SGPT) 55 U/L (16-63) Alkaline Phosphatase 51 U/L (46-116) Total Protein 7.4 g/dL (6.4-8.2) Albumin 3.0 g/dL (3.4-5.0) Albumin/Globulin Ratio 0.7 (1.0-1.7) Micro GRAM POSITIVE COCCI PRELIMINARY ID= ENTEROCOCCUS SPECIES on 08/24/19 at 0709 FINAL ID= [ENTEROCOCCUS FAECALIS] ENTEROCOCCUS FAECALIS Streptomycin Synergy Screen S Gentamicin Synergy Screen S ANTIMICROBIAL SUSCEPTIBILITY Final Comment POS COMBO TYPE 45 ENTEROCOCCUS FAECALIS ANTIBIOTIC RESULT INTERPRETATION AMPICILLIN <=2 S DAPTOMYCIN 4 S LINEZOLID <=2 S PENICILLIN 2 S VANCOMYCIN 1 S Microbiology 08/22/19 Blood Culture - Preliminary, Resulted Objective Assessment MRSA Procedures performed: Irrigation debridement of dorsal left hand abscess measuring about 3 cm in diameter 08/24 Irrigation debridement left volar forearm abscess measuring about 4 cm in diameter 08/24 Bacteremia, Enterococcus Amp sensitive, 1 of 2 bottles. 08/21 possible contamination but have to treat should not cause abscesses in extremities Left hand abscess. Forearm cellulitis bilaterally LUE abscess. 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 Cr better COVID - neg Plan Plan of Care D/c meropenem (likely wean if cults neg 08/27) and vancomycin change to Amp and Doxy Follow up cultures from 08/23 D/w nursing ELYSSA ACEVEDO MD Aug 28, 2019 10:01
[2019-08-28 11:00] VITALS: BP 110/80
[2019-08-28] MEDS: DOXYCYCLINE HYCLATE 100 MG TABLET PO SCH ×2 (12:06→21:33)
[2019-08-28] MEDS: AMPICILLIN SODIUM 2 GM in IV NORMAL SALINE 100ML 100 ML IV SCH ×4 (12:07→23:53)
[2019-08-28 15:00] VITALS: BP 143/90
--- NOTE | 2019-08-28 15:25 | PDOC ---
GENERAL General: Patient examined chart reviewed today is hospital day 7 for this patient with MRSA abscesses needing surgical debridement he is doing better clinically tells me that the plan [facility] and then to rehab for his chronic heroin abuse. He seems very committed to getting his life into a better position. We appreciate social work and subspecialty support. Continue current management. We will need a very robust wound plan to avoid readmission. Problems: (1) Heroin abuse (2) Cellulitis (3) Abscess, hand VITAL SIGNS Vital Signs/I&O: Vital Signs Date Time Temp Pulse Resp B/P (MAP) Pulse Ox O2 Delivery O2 Flow Rate FiO2 08/28/19 12:45 Room Air 08/28/19 11:00 98.1 68 16 110/80 (90) 98 98.1 I & O 08/27/19 08/27/19 08/28/19 15:00 23:00 07:00 Intake Total 500 ml Output Total 200 ml 700 ml Balance -200 ml -200 ml In general the patient is pleasant alert and oriented x3 no acute distress HEENT exam is unremarkable Chest is clear to auscultation Heart S1-S2 normal regular rate and rhythm no murmurs or gallops are noted Abdomen soft nontender nondistended no masses organomegaly noted Extremity exam is notable for clean dry dressings over 3 wounds that have been debrided surgically one on the dorsum of his left hand, lower extremity, and right forearm. ALLERGIES Allergies: Allergies Coded Allergies Type Severity Reaction Last Updated Verified haloperidol Allergy Severe Swelling 11/11/18 Yes quetiapine Allergy Severe Anaphylaxis 08/23/19 Yes I S O L A T I O N *CONTACT* Allergy Unknown 11/18/18 Yes MEDS Medications: Current Medications Medications (Trade) Dose Ordered Sig/Guillermo Start Time Stop Time Status Last Admin Dose Admin Acetaminophen (Tylenol) 1,000 mg PRN Q6HRS PRN 08/22/19 15:15 08/22/19 15:20 Ampicillin Sodium 2 gm/Sodium Chloride 100 ml @ 200 mls/hr Q4HRS 08/28/19 12:00 08/28/19 12:07 Ceftriaxone Sodium (Rocephin) 1 gm 1X ONCE 08/22/19 09:30 08/22/19 09:31 DC 08/22/19 10:19 Clindamycin Phosphate 50 ml @ 100 mls/hr 1X ONCE 08/22/19 10:00 08/22/19 10:29 DC 08/22/19 10:18 Dexamethasone Sodium Phosphate (Decadron) 4 mg STK-MED ONCE 08/25/19 07:42 08/25/19 07:42 DC Doxycycline Hyclate (Vibra-Tab) 100 mg BID 08/28/19 10:30 08/28/19 12:06 Famotidine (Pepcid) 20 mg BID 08/27/19 09:00 08/28/19 08:30 Fentanyl Citrate (Fentanyl 2ml Vial) 100 mcg STK-MED ONCE 08/25/19 07:42 08/25/19 07:43 DC Hydromorphone HCl (Dilaudid) 0.5 mg PRN Q10MIN PRN 08/25/19 07:00 08/25/19 15:00 DC Lactobacillus Rhamnosus (Culturelle) 1 cap BID 08/24/19 21:00 08/28/19 08:30 Lidocaine HCl (Lidocaine Pf 2% Vial) 5 ml STK-MED ONCE 08/25/19 07:42 08/25/19 07:42 DC Meropenem 1 gm/ Sodium Chloride 100 ml @ 200 mls/hr Q8HRS 08/23/19 15:30 08/28/19 10:28 DC 08/28/19 05:59 Methadone HCl (Dolophine) 10 mg PRN TID PRN 08/22/19 14:45 08/28/19 07:27 Midazolam HCl (Versed) 2 mg STK-MED ONCE 08/25/19 08:49 08/25/19 08:49 DC Morphine Sulfate (Morphine Sulfate) 1 mg PRN Q10MIN PRN 08/25/19 07:00 08/25/19 15:00 DC Multi-Ingredient Mouthwash/Gargle (Gi Cocktail) 20 ml 1X ONCE 08/27/19 04:30 08/27/19 04:31 DC 08/27/19 04:31 Nicotine Polacrilex (Nicorette Gum) 1 each PRN Q1HR PRN 08/22/19 18:15 08/28/19 08:30 Ondansetron HCl (Zofran) 4 mg STK-MED ONCE 08/25/19 07:42 08/25/19 07:42 DC Prochlorperazine Edisylate (Compazine) 5 mg PACU PRN PRN 08/25/19 07:00 08/25/19 15:00 DC Propofol (Diprivan) 200 mg STK-MED ONCE 08/25/19 07:42 08/25/19 07:42 DC Ringer's Solution 1,000 ml @ 30 mls/hr Q24H 08/25/19 07:00 08/25/19 18:59 DC 08/25/19 08:00 Sevoflurane (Ultane) 30 ml STK-MED ONCE 08/25/19 09:16 08/25/19 09:16 DC Sodium Chloride 1,000 ml @ 40 mls/hr 1X ONCE 08/22/19 09:30 08/23/19 10:29 DC 08/22/19 10:18 Tetracaine/ Epinephrine/ Lidocaine (Let (Upoj-Lmoyouh-Wtmql) Gel) 3 ml 1X ONCE 08/22/19 10:00 08/22/19 10:01 DC 08/22/19 10:18 Vancomycin HCl (Vanco Per Pharmacy) 1 each PRN DAILY PRN 08/23/19 15:30 08/28/19 10:31 DC 08/27/19 12:31 Vancomycin HCl (Vancomycin Trough Level) 1 each 1X ONCE 08/25/19 08:30 08/25/19 08:31 DC 08/25/19 08:30 Vancomycin HCl 1.25 gm/Sodium Chloride 250 ml @ 167 mls/hr Q8H 08/24/19 17:00 08/26/19 12:32 DC 08/26/19 11:24 Vancomycin HCl 1.75 gm/Sodium Chloride 500 ml @ 250 mls/hr 1X ONCE 08/23/19 16:00 08/23/19 17:59 DC 08/23/19 20:26 Vancomycin HCl 1 gm/Sodium Chloride 250 ml @ 250 mls/hr Q8H 08/26/19 20:00 08/28/19 10:30 DC 08/28/19 03:38 Current Medications Medications (Trade) Dose Ordered Sig/Guillermo Route PRN Reason Start Time Stop Time Status Last Admin Dose Admin Ampicillin Sodium 2 gm/Sodium Chloride 100 ml @ 200 mls/hr Q4HRS IV 08/28/19 12:00 08/28/19 12:07 Doxycycline Hyclate (Vibra-Tab) 100 mg BID PO 08/28/19 10:30 08/28/19 12:06 LAB Lab: Laboratory Tests Test 08/28/19 04:10 White Blood Count 9.1 x10^3/uL (4.0-11.0) Red Blood Count 4.38 x10^6/uL (4.30-5.70) Hemoglobin 12.1 g/dL (13.0-17.5) L Hematocrit 36.7 % (39.0-53.0) L Mean Corpuscular Volume 84 fL (79-100) Mean Corpuscular Hemoglobin 28 pg (25-35) Mean Corpuscular Hemoglobin Concent 33 g/dL (31-37) Red Cell Distribution Width 15.5 % (11.5-14.5) H Platelet Count 357 x10^3/uL (140-400) Neutrophils (%) (Auto) 50 % (31-73) Lymphocytes (%) (Auto) 34 % (24-48) Monocytes (%) (Auto) 8 % (0-9) Eosinophils (%) (Auto) 7 % (0-3) H Basophils (%) (Auto) 1 % (0-3) Neutrophils # (Auto) 4.6 x10^3/uL (1.8-7.7) Lymphocytes # (Auto) 3.1 x10^3/uL (1.0-4.8) Monocytes # (Auto) 0.7 x10^3/uL (0.0-1.1) Eosinophils # (Auto) 0.6 x10^3/uL (0.0-0.7) Basophils # (Auto) 0.1 x10^3/uL (0.0-0.2) Sodium Level 138 mmol/L (136-145) Potassium Level 4.6 mmol/L (3.5-5.1) Chloride Level 101 mmol/L (98-107) Carbon Dioxide Level 29 mmol/L (21-32) Anion Gap 8 (6-14) Blood Urea Nitrogen 25 mg/dL (8-26) Creatinine 0.9 mg/dL (0.7-1.3) Estimated GFR (Cockcroft-Gault) 93.5 BUN/Creatinine Ratio 28 (6-20) H Glucose Level 77 mg/dL (70-99) Calcium Level 9.1 mg/dL (8.5-10.1) Total Bilirubin 0.1 mg/dL (0.2-1.0) L Aspartate Amino Transferase (AST) 47 U/L (15-37) H Alanine Aminotransferase (ALT) 55 U/L (16-63) Alkaline Phosphatase 51 U/L (46-116) Total Protein 7.4 g/dL (6.4-8.2) Albumin 3.0 g/dL (3.4-5.0) L Albumin/Globulin Ratio 0.7 (1.0-1.7) L Laboratory Tests 08/28/19 04:10 Laboratory Tests 08/28/19 04:10 ASSESSMENT & PLAN A&P Plan as noted above This note was created using [employer] and may have omissions and/or errors due to the nature of real-time voice transcriptionist. Justicifation of Admission Dx: Justifications for Admission: Justification of Admission Dx: Yes Cellulitis: Cellulitis LIVIER TERRAZAS MD Aug 28, 2019 15:25
--- NOTE | 2019-08-28 16:42 | NUR ---
Spoke with Ingrid from PAT team. She stated she would stop in to see pt tomorrow.
[2019-08-28 19:00] VITALS: BP 131/75
[2019-08-28 23:00] VITALS: BP 131/84
[2019-08-29] MEDS: MORPHINE SULFATE 10 MG/ML VIAL. IV PRN ×5 (02:05→20:23)
[2019-08-29] MEDS: NICOTINE POLACRILEX 2MG GUM PACKAGE of 12. BC PRN (02:16)
[2019-08-29 03:00] VITALS: BP 107/63
[2019-08-29] MEDS: AMPICILLIN SODIUM 2 GM in IV NORMAL SALINE 100ML 100 ML IV SCH ×6 (03:42→23:57)
[2019-08-29 04:59] LABS: BASO # 0.1 x10^3/uL (0.0-0.2); BASO % 1 % (0-3); EOS # 0.5 x10^3/uL (0.0-0.7); EOS % 6 % (0-3); HEMOGLOBIN 12.4 g/dL (13.0-17.5); LYMPH # 3.2 x10^3/uL (1.0-4.8); LYMPH % 43 % (24-48); MEAN CORPUSCULAR HEMOGLOBIN 28 pg (25-35); MEAN CORPUSCULAR HGB CONC 33 g/dL (31-37); MEAN CORPUSCULAR VOLUME 84 fL (79-100); MONO # 0.6 x10^3/uL (0.0-1.1); MONO % 8 % (0-9); NEUT # 3.1 x10^3/uL (1.8-7.7); NEUT % 42 % (31-73); PLATELET COUNT 375 x10^3/uL (140-400); RED BLOOD COUNT 4.42 x10^6/uL (4.30-5.70); RED CELL DISTRIBUTION WIDTH 15.6 % (11.5-14.5); WHITE BLOOD COUNT 7.4 x10^3/uL (4.0-11.0)
[2019-08-29 05:27] LABS: ALBUMIN 3.1 g/dL (3.4-5.0); ALBUMIN/GLOBULIN RATIO 0.7 (1.0-1.7); CALCIUM 8.9 mg/dL (8.5-10.1); CREATININE 0.9 mg/dL (0.7-1.3); GFR 93.5; POTASSIUM 4.5 mmol/L (3.5-5.1); TOTAL BILIRUBIN 0.2 mg/dL (0.2-1.0); TOTAL PROTEIN 7.6 g/dL (6.4-8.2)
[2019-08-29 07:59] VITALS: BP 112/91
[2019-08-29] MEDS: DOXYCYCLINE HYCLATE 100 MG TABLET PO SCH ×2 (08:02→21:17)
[2019-08-29] MEDS: LACTOBACILLUS RHAMNOSUS GG 1 CAPSULE. PO SCH ×2 (08:02→21:17)
[2019-08-29] MEDS: FAMOTIDINE 20 MG TABLET. PO SCH ×2 (08:02→21:17)
[2019-08-29] MEDS: METHADONE 10 MG TABLET. PO PRN ×2 (08:21→16:30)
--- NOTE | 2019-08-29 11:20 | PDOC ---
Infectious Disease Note Subjective Subjective Says left hand is looking "awesome" Left forearm little red + drainage left leg, more when squeezed Denies F/C/aches/N/V/D/SOA ROS ROS as mentioned above Vital Sign Vital Signs Vital Signs Date Time Temp Pulse Resp B/P (MAP) Pulse Ox O2 Delivery O2 Flow Rate FiO2 08/29/19 11:00 Room Air 08/29/19 07:59 98.3 86 18 112/91 (98) 94 98.3 Physical Exam PHYSICAL EXAM GENERAL: Propped up in bed, alert, appears comfortable HEENT: Normal conjunctivae. He has an eyebrow piercing on the left. Oral cavity is clear. NECK: Supple. LUNGS: Clear to auscultation. HEART: S1, S2. ABDOMEN: Soft, nontender. No guarding, no rebound. EXTREMITIES: Without clubbing or cyanosis. Dorsal aspect of his left hand/forearm wounds sutured closed Left leg wound + drainage, no area redness SKIN: Otherwise, warm to touch without signs of generalized rash. NEUROLOGIC: Alert, answers questions appropriately PIV Labs Lab Laboratory Tests Test 08/29/19 04:25 White Blood Count 7.4 x10^3/uL (4.0-11.0) Red Blood Count 4.42 x10^6/uL (4.30-5.70) Hemoglobin 12.4 g/dL (13.0-17.5) Hematocrit 37.0 % (39.0-53.0) Mean Corpuscular Volume 84 fL (79-100) Mean Corpuscular Hemoglobin 28 pg (25-35) Mean Corpuscular Hemoglobin Concent 33 g/dL (31-37) Red Cell Distribution Width 15.6 % (11.5-14.5) Platelet Count 375 x10^3/uL (140-400) Neutrophils (%) (Auto) 42 % (31-73) Lymphocytes (%) (Auto) 43 % (24-48) Monocytes (%) (Auto) 8 % (0-9) Eosinophils (%) (Auto) 6 % (0-3) Basophils (%) (Auto) 1 % (0-3) Neutrophils # (Auto) 3.1 x10^3/uL (1.8-7.7) Lymphocytes # (Auto) 3.2 x10^3/uL (1.0-4.8) Monocytes # (Auto) 0.6 x10^3/uL (0.0-1.1) Eosinophils # (Auto) 0.5 x10^3/uL (0.0-0.7) Basophils # (Auto) 0.1 x10^3/uL (0.0-0.2) Sodium Level 138 mmol/L (136-145) Potassium Level 4.5 mmol/L (3.5-5.1) Chloride Level 101 mmol/L (98-107) Carbon Dioxide Level 30 mmol/L (21-32) Anion Gap 7 (6-14) Blood Urea Nitrogen 25 mg/dL (8-26) Creatinine 0.9 mg/dL (0.7-1.3) Estimated GFR (Cockcroft-Gault) 93.5 BUN/Creatinine Ratio 28 (6-20) Glucose Level 118 mg/dL (70-99) Calcium Level 8.9 mg/dL (8.5-10.1) Total Bilirubin 0.2 mg/dL (0.2-1.0) Aspartate Amino Transf (AST/SGOT) 53 U/L (15-37) Alanine Aminotransferase (ALT/SGPT) 60 U/L (16-63) Alkaline Phosphatase 51 U/L (46-116) Total Protein 7.6 g/dL (6.4-8.2) Albumin 3.1 g/dL (3.4-5.0) Albumin/Globulin Ratio 0.7 (1.0-1.7) Micro 7/5. ANTIMICROBIAL SUSCEPTIBILITY Final Comment POS COMBO TYPE 45 ENTEROCOCCUS FAECALIS ANTIBIOTIC RESULT INTERPRETATION AMPICILLIN <=2 S DAPTOMYCIN 4 S LINEZOLID <=2 S PENICILLIN 2 S VANCOMYCIN 1 S ANAEROBIC-AEROBIC CULTURE Preliminary Preliminary POS ENRICO TYPE 38 STAPHYLOCOCCUS AUREUS (MRSA) ANTIBIOTIC RESULT INTERPRETATION AZITHROMYCIN >4 R CLINDAMYCIN 0.5 S CEFOXITIN SCREEN >4 POS CIPROFLOXACIN <=1 S CEFTAROLINE <=0.5 S DAPTOMYCIN <=0.5 S ERYTHROMYCIN >4 R GENTAMICIN <=4 S INDUCIBLE CLINDAMYCIN <=4/0.5 NEG LINEZOLID 4 S LEVOFLOXACIN <=1 S OXACILLIN >2 R PENICILLIN >2 R* RIFAMPIN <=1 S TRIMETHOPRIM/SULFAMETHOXAZOLE <=0.5/9.5 S TETRACYCLINE <=4 S VANCOMYCIN 1 S NEG ENRICO 56 SERRATIA MARCESCENS ANTIBIOTIC RESULT INTERPRETATION AMPICILLIN/SULBACTAM >16/8 R AMIKACIN <=16 S AMPICILLIN >16 R AMOXICILLIN/K CLAVULANATE >16/8 R AZTREONAM 16 I CEFTRIAXONE 8 R CEFTAZIDIME >16 R CEFOTAXIME 32 I CEFOXITIN 16 R* CIPROFLOXACIN <=0.25 S CEFEPIME <=2 S CEFUROXIME >16 R CEFTAZIDIME/AVIBACTAM <=4 S ERTAPENEM <=0.5 S GENTAMICIN <=2 S LEVOFLOXACIN <=0.5 S MEROPENEM <=1 S PIPERACILLIN/TAZOBACTAM 32 I TRIMETHOPRIM/SULFAMETHOXAZOLE <=0.5/9.5 S TETRACYCLINE >8 R TOBRAMYCIN 4 S Objective Assessment Bacteremia, Enterococcus Amp sensitive, 1 of 2 bottles. 08/21 possible contamination but have to treat should not cause abscesses in extremities Left hand abscess s/p I and D, 08/24. no growth Forearm cellulitis bilaterally LUE abscess. 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 COVID - neg Plan Plan of Care Ampicillin and Doxy - further rec to follow Local wound care f/u cultures Contact isolation Given Serratia now will add po Pili Attending Co-Sign Attending Co-Sign The patient was seen and interviewed as well as examined at the bedside. The chart was reviewed. The case was discussed. Agree with the plan of care. CASA SHAH APRN Aug 29, 2019 11:20 ELYSSA ACEVEDO MD Aug 29, 2019 15:43
[2019-08-29 11:59] VITALS: BP 98/67
[2019-08-29 15:59] VITALS: BP 107/73
[2019-08-29] MEDS: CIPROFLOXACIN HCL 250 MG TABLET. PO SCH (16:30)
--- NOTE | 2019-08-29 17:01 | PDOC ---
GENERAL General: Patient examined chart reviewed discussed with nursing. He is doing better looking forward to discharge to the homeless longterm and then to rehab. Ap preciate infectious diseases support and the new culture results are outlined fully in that progress note from earlier today. He now has enterococcal bacteremia and Serratia as well as MRSA growing from from his wounds. Hopefully we will be able to get away with an oral antibiotic regimen and still planning on discharge in the next day or 2. Continue current management otherwise. Problems: (1) Enterococcal bacteremia (2) Abscess, hand (3) Heroin abuse (4) Cellulitis VITAL SIGNS Vital Signs/I&O: Vital Signs Date Time Temp Pulse Resp B/P (MAP) Pulse Ox O2 Delivery O2 Flow Rate FiO2 08/29/19 16:29 Room Air 08/29/19 15:59 98.6 76 18 107/73 (84) 96 98.6 I & O 08/28/19 08/28/19 08/29/19 15:00 23:00 07:00 Intake Total 360 ml 0 ml 1800 ml Output Total 700 ml Balance 360 ml 0 ml 1100 ml In general the patient is pleasant sitting up resting happy that his dressings are recently changed dry and intact HEENT exam is unremarkable Chest is clear to auscultation Heart S1-S2 normal regular rate and rhythm no murmurs or gallops are noted Abdomen soft nontender nondistended no masses organomegaly noted Extremity exam is unremarkable for acute abnormality ALLERGIES Allergies: Allergies Coded Allergies Type Severity Reaction Last Updated Verified haloperidol Allergy Severe Swelling 11/11/18 Yes quetiapine Allergy Severe Anaphylaxis 08/23/19 Yes I S O L A T I O N *CONTACT* Allergy Unknown 11/18/18 Yes MEDS Medications: Current Medications Medications (Trade) Dose Ordered Sig/Guillermo Route PRN Reason Start Time Stop Time Status Last Admin Dose Admin Ciprofloxacin (Cipro) 500 mg BID PO 08/29/19 17:00 08/29/19 16:30 LAB Lab: Laboratory Tests Test 08/29/19 04:25 White Blood Count 7.4 x10^3/uL (4.0-11.0) Red Blood Count 4.42 x10^6/uL (4.30-5.70) Hemoglobin 12.4 g/dL (13.0-17.5) L Hematocrit 37.0 % (39.0-53.0) L Mean Corpuscular Volume 84 fL (79-100) Mean Corpuscular Hemoglobin 28 pg (25-35) Mean Corpuscular Hemoglobin Concent 33 g/dL (31-37) Red Cell Distribution Width 15.6 % (11.5-14.5) H Platelet Count 375 x10^3/uL (140-400) Neutrophils (%) (Auto) 42 % (31-73) Lymphocytes (%) (Auto) 43 % (24-48) Monocytes (%) (Auto) 8 % (0-9) Eosinophils (%) (Auto) 6 % (0-3) H Basophils (%) (Auto) 1 % (0-3) Neutrophils # (Auto) 3.1 x10^3/uL (1.8-7.7) Lymphocytes # (Auto) 3.2 x10^3/uL (1.0-4.8) Monocytes # (Auto) 0.6 x10^3/uL (0.0-1.1) Eosinophils # (Auto) 0.5 x10^3/uL (0.0-0.7) Basophils # (Auto) 0.1 x10^3/uL (0.0-0.2) Sodium Level 138 mmol/L (136-145) Potassium Level 4.5 mmol/L (3.5-5.1) Chloride Level 101 mmol/L (98-107) Carbon Dioxide Level 30 mmol/L (21-32) Anion Gap 7 (6-14) Blood Urea Nitrogen 25 mg/dL (8-26) Creatinine 0.9 mg/dL (0.7-1.3) Estimated GFR (Cockcroft-Gault) 93.5 BUN/Creatinine Ratio 28 (6-20) H Glucose Level 118 mg/dL (70-99) H Calcium Level 8.9 mg/dL (8.5-10.1) Total Bilirubin 0.2 mg/dL (0.2-1.0) Aspartate Amino Transferase (AST) 53 U/L (15-37) H Alanine Aminotransferase (ALT) 60 U/L (16-63) Alkaline Phosphatase 51 U/L (46-116) Total Protein 7.6 g/dL (6.4-8.2) Albumin 3.1 g/dL (3.4-5.0) L Albumin/Globulin Ratio 0.7 (1.0-1.7) L Laboratory Tests 08/29/19 04:25 Laboratory Tests 08/29/19 04:25 ASSESSMENT & PLAN A&P Plan as noted above This note was created using [employer] and may have omissions and/or errors due to the nature of real-time voice bi analyst. Justicifation of Admission Dx: Justifications for Admission: Justification of Admission Dx: Yes Cellulitis: Cellulitis LIVIER TERRAZAS MD Aug 29, 2019 17:01
[2019-08-29 19:00] VITALS: BP 124/74
[2019-08-29 23:02] VITALS: BP 129/79
[2019-08-30] MEDS: METHADONE 10 MG TABLET. PO PRN ×3 (00:33→17:22)
[2019-08-30] MEDS: MORPHINE SULFATE 10 MG/ML VIAL. IV PRN ×5 (01:08→17:22)
[2019-08-30 03:02] VITALS: BP 132/82
[2019-08-30] MEDS: AMPICILLIN SODIUM 2 GM in IV NORMAL SALINE 100ML 100 ML IV SCH ×4 (04:00→16:00)
[2019-08-30] MEDS: NICOTINE POLACRILEX 2MG GUM PACKAGE of 12. BC PRN (05:20)
[2019-08-30 05:24] LABS: BASO # 0.1 x10^3/uL (0.0-0.2); BASO % 1 % (0-3); EOS # 0.4 x10^3/uL (0.0-0.7); EOS % 5 % (0-3); HEMATOCRIT 34.5 % (39.0-53.0); HEMOGLOBIN 11.6 g/dL (13.0-17.5); LYMPH # 3.1 x10^3/uL (1.0-4.8); LYMPH % 44 % (24-48); MEAN CORPUSCULAR HEMOGLOBIN 28 pg (25-35); MEAN CORPUSCULAR HGB CONC 34 g/dL (31-37); MEAN CORPUSCULAR VOLUME 84 fL (79-100); MONO # 0.6 x10^3/uL (0.0-1.1); MONO % 8 % (0-9); NEUT # 2.9 x10^3/uL (1.8-7.7); NEUT % 42 % (31-73); PLATELET COUNT 368 x10^3/uL (140-400); RED BLOOD COUNT 4.12 x10^6/uL (4.30-5.70); RED CELL DISTRIBUTION WIDTH 15.9 % (11.5-14.5)
[2019-08-30 05:56] LABS: ALBUMIN 3.1 g/dL (3.4-5.0); ALBUMIN/GLOBULIN RATIO 0.7 (1.0-1.7); CALCIUM 8.8 mg/dL (8.5-10.1); CREATININE 0.9 mg/dL (0.7-1.3); GFR 93.5; POTASSIUM 4.6 mmol/L (3.5-5.1); TOTAL BILIRUBIN 0.2 mg/dL (0.2-1.0); TOTAL PROTEIN 7.3 g/dL (6.4-8.2)
[2019-08-30 07:00] VITALS: BP 130/80
--- NOTE | 2019-08-30 08:45 | PDOC ---
PROGRESS NOTES Chief Complaint Chief Complaint IMPRESSION Left arm cellulitis secondary to IV drug abuse Heroin addiction Left leg infection secondary to heroin injections PLAN CONTINUE AMPICILLIN, DOXY IV PLACEMENT NEEDED IS HOMELESS pt cannot go to [facility] with iv 08/29 enterococcus might be contaminant 1/2 bottles, non of the wounds had it History of Present Illness History of Present Illness 08/26/2019 Patient seen and examined His left arm really has not changed much incision and drainage 08/23 Discussed with RN Chart reviewed Vitals Vitals Vital Signs Date Time Temp Pulse Resp B/P (MAP) Pulse Ox O2 Delivery O2 Flow Rate FiO2 08/30/19 07:00 97.7 70 16 130/80 (97) 98 Room Air 97.7 Physical Exam Physical Exam GENERAL: Propped up in bed, alert, appears comfortable HEENT: Normal conjunctivae. He has an eyebrow piercing on the left. Oral cavity is clear. NECK: Supple. LUNGS: Clear to auscultation. HEART: S1, S2. ABDOMEN: Soft, nontender. No guarding, no rebound. EXTREMITIES: Without clubbing or cyanosis. Dorsal aspect of his left hand/forearm wounds sutured closed Left leg wound + drainage, no area redness SKIN: Otherwise, warm to touch without signs of generalized rash. NEUROLOGIC: Alert, answers questions appropriately PIV General: Alert, Oriented X3, Cooperative, No acute distress Heart: Regular rate, Normal S1 Lungs: Clear Abdomen: Normal bowel sounds, Soft, No tenderness Extremities: No cyanosis, No edema, Normal pulses Skin: Other (As below) Labs LABS Laboratory Tests Test 08/30/19 03:35 White Blood Count 7.0 x10^3/uL (4.0-11.0) Red Blood Count 4.12 x10^6/uL (4.30-5.70) Hemoglobin 11.6 g/dL (13.0-17.5) Hematocrit 34.5 % (39.0-53.0) Mean Corpuscular Volume 84 fL (79-100) Mean Corpuscular Hemoglobin 28 pg (25-35) Mean Corpuscular Hemoglobin Concent 34 g/dL (31-37) Red Cell Distribution Width 15.9 % (11.5-14.5) Platelet Count 368 x10^3/uL (140-400) Neutrophils (%) (Auto) 42 % (31-73) Lymphocytes (%) (Auto) 44 % (24-48) Monocytes (%) (Auto) 8 % (0-9) Eosinophils (%) (Auto) 5 % (0-3) Basophils (%) (Auto) 1 % (0-3) Neutrophils # (Auto) 2.9 x10^3/uL (1.8-7.7) Lymphocytes # (Auto) 3.1 x10^3/uL (1.0-4.8) Monocytes # (Auto) 0.6 x10^3/uL (0.0-1.1) Eosinophils # (Auto) 0.4 x10^3/uL (0.0-0.7) Basophils # (Auto) 0.1 x10^3/uL (0.0-0.2) Sodium Level 138 mmol/L (136-145) Potassium Level 4.6 mmol/L (3.5-5.1) Chloride Level 102 mmol/L (98-107) Carbon Dioxide Level 25 mmol/L (21-32) Anion Gap 11 (6-14) Blood Urea Nitrogen 19 mg/dL (8-26) Creatinine 0.9 mg/dL (0.7-1.3) Estimated GFR (Cockcroft-Gault) 93.5 BUN/Creatinine Ratio 21 (6-20) Glucose Level 88 mg/dL (70-99) Calcium Level 8.8 mg/dL (8.5-10.1) Total Bilirubin 0.2 mg/dL (0.2-1.0) Aspartate Amino Transf (AST/SGOT) 54 U/L (15-37) Alanine Aminotransferase (ALT/SGPT) 60 U/L (16-63) Alkaline Phosphatase 49 U/L (46-116) Total Protein 7.3 g/dL (6.4-8.2) Albumin 3.1 g/dL (3.4-5.0) Albumin/Globulin Ratio 0.7 (1.0-1.7) Assessment and Plan Assessmemt and Plan Problems Medical Problems: (1) Abscess, hand Status: Acute (2) Cellulitis Status: Acute Comment Review of Relevant I have reviewed the following items loulou (where applicable) has been applied. Labs Laboratory Tests Test 08/29/19 04:25 08/30/19 03:35 White Blood Count 7.4 x10^3/uL (4.0-11.0) 7.0 x10^3/uL (4.0-11.0) Red Blood Count 4.42 x10^6/uL (4.30-5.70) 4.12 x10^6/uL (4.30-5.70) Hemoglobin 12.4 g/dL (13.0-17.5) 11.6 g/dL (13.0-17.5) Hematocrit 37.0 % (39.0-53.0) 34.5 % (39.0-53.0) Mean Corpuscular Volume 84 fL (79-100) 84 fL (79-100) Mean Corpuscular Hemoglobin 28 pg (25-35) 28 pg (25-35) Mean Corpuscular Hemoglobin Concent 33 g/dL (31-37) 34 g/dL (31-37) Red Cell Distribution Width 15.6 % (11.5-14.5) 15.9 % (11.5-14.5) Platelet Count 375 x10^3/uL (140-400) 368 x10^3/uL (140-400) Neutrophils (%) (Auto) 42 % (31-73) 42 % (31-73) Lymphocytes (%) (Auto) 43 % (24-48) 44 % (24-48) Monocytes (%) (Auto) 8 % (0-9) 8 % (0-9) Eosinophils (%) (Auto) 6 % (0-3) 5 % (0-3) Basophils (%) (Auto) 1 % (0-3) 1 % (0-3) Neutrophils # (Auto) 3.1 x10^3/uL (1.8-7.7) 2.9 x10^3/uL (1.8-7.7) Lymphocytes # (Auto) 3.2 x10^3/uL (1.0-4.8) 3.1 x10^3/uL (1.0-4.8) Monocytes # (Auto) 0.6 x10^3/uL (0.0-1.1) 0.6 x10^3/uL (0.0-1.1) Eosinophils # (Auto) 0.5 x10^3/uL (0.0-0.7) 0.4 x10^3/uL (0.0-0.7) Basophils # (Auto) 0.1 x10^3/uL (0.0-0.2) 0.1 x10^3/uL (0.0-0.2) Sodium Level 138 mmol/L (136-145) 138 mmol/L (136-145) Potassium Level 4.5 mmol/L (3.5-5.1) 4.6 mmol/L (3.5-5.1) Chloride Level 101 mmol/L (98-107) 102 mmol/L (98-107) Carbon Dioxide Level 30 mmol/L (21-32) 25 mmol/L (21-32) Anion Gap 7 (6-14) 11 (6-14) Blood Urea Nitrogen 25 mg/dL (8-26) 19 mg/dL (8-26) Creatinine 0.9 mg/dL (0.7-1.3) 0.9 mg/dL (0.7-1.3) Estimated GFR (Cockcroft-Gault) 93.5 93.5 BUN/Creatinine Ratio 28 (6-20) 21 (6-20) Glucose Level 118 mg/dL (70-99) 88 mg/dL (70-99) Calcium Level 8.9 mg/dL (8.5-10.1) 8.8 mg/dL (8.5-10.1) Total Bilirubin 0.2 mg/dL (0.2-1.0) 0.2 mg/dL (0.2-1.0) Aspartate Amino Transf (AST/SGOT) 53 U/L (15-37) 54 U/L (15-37) Alanine Aminotransferase (ALT/SGPT) 60 U/L (16-63) 60 U/L (16-63) Alkaline Phosphatase 51 U/L (46-116) 49 U/L (46-116) Total Protein 7.6 g/dL (6.4-8.2) 7.3 g/dL (6.4-8.2) Albumin 3.1 g/dL (3.4-5.0) 3.1 g/dL (3.4-5.0) Albumin/Globulin Ratio 0.7 (1.0-1.7) 0.7 (1.0-1.7) Laboratory Tests Test 08/30/19 03:35 White Blood Count 7.0 x10^3/uL (4.0-11.0) Red Blood Count 4.12 x10^6/uL (4.30-5.70) Hemoglobin 11.6 g/dL (13.0-17.5) Hematocrit 34.5 % (39.0-53.0) Mean Corpuscular Volume 84 fL (79-100) Mean Corpuscular Hemoglobin 28 pg (25-35) Mean Corpuscular Hemoglobin Concent 34 g/dL (31-37) Red Cell Distribution Width 15.9 % (11.5-14.5) Platelet Count 368 x10^3/uL (140-400) Neutrophils (%) (Auto) 42 % (31-73) Lymphocytes (%) (Auto) 44 % (24-48) Monocytes (%) (Auto) 8 % (0-9) Eosinophils (%) (Auto) 5 % (0-3) Basophils (%) (Auto) 1 % (0-3) Neutrophils # (Auto) 2.9 x10^3/uL (1.8-7.7) Lymphocytes # (Auto) 3.1 x10^3/uL (1.0-4.8) Monocytes # (Auto) 0.6 x10^3/uL (0.0-1.1) Eosinophils # (Auto) 0.4 x10^3/uL (0.0-0.7) Basophils # (Auto) 0.1 x10^3/uL (0.0-0.2) Sodium Level 138 mmol/L (136-145) Potassium Level 4.6 mmol/L (3.5-5.1) Chloride Level 102 mmol/L (98-107) Carbon Dioxide Level 25 mmol/L (21-32) Anion Gap 11 (6-14) Blood Urea Nitrogen 19 mg/dL (8-26) Creatinine 0.9 mg/dL (0.7-1.3) Estimated GFR (Cockcroft-Gault) 93.5 BUN/Creatinine Ratio 21 (6-20) Glucose Level 88 mg/dL (70-99) Calcium Level 8.8 mg/dL (8.5-10.1) Total Bilirubin 0.2 mg/dL (0.2-1.0) Aspartate Amino Transf (AST/SGOT) 54 U/L (15-37) Alanine Aminotransferase (ALT/SGPT) 60 U/L (16-63) Alkaline Phosphatase 49 U/L (46-116) Total Protein 7.3 g/dL (6.4-8.2) Albumin 3.1 g/dL (3.4-5.0) Albumin/Globulin Ratio 0.7 (1.0-1.7) Microbiology 08/25/19 Gram Stain - Final, Resulted 08/25/19 Aerobic and Anaerobic Culture - Preliminary, Resulted 08/22/19 Blood Culture - Final, Complete 08/22/19 Antimicrobic Susceptibility - Final, Complete Medications Current Medications Sodium Chloride 1,000 ml @ 40 mls/hr 1X ONCE IV Last administered on 08/22/19at 10:18; Start 08/22/19 at 09:30; Stop 08/23/19 at 10:29; Status DC Ceftriaxone Sodium (Rocephin) 1 gm 1X ONCE IVP Last administered on 08/22/19at 10:19; Start 08/22/19 at 09:30; Stop 08/22/19 at 09:31; Status DC Clindamycin Phosphate 50 ml @ 100 mls/hr 1X ONCE IV Last administered on 08/22/19at 10:18; Start 08/22/19 at 10:00; Stop 08/22/19 at 10:29; Status DC Tetracaine/ Epinephrine/ Lidocaine (Let (Tfsy-Rlctemn-Dndar) Gel) 3 ml 1X ONCE TP Last administered on 08/22/19at 10:18; Start 08/22/19 at 10:00; Stop 08/22/19 at 10:01; Status DC Methadone HCl (Dolophine) 10 mg PRN TID PRN PO MODERATE - SEVERE PAIN Last administered on 08/30/19at 00:33; Start 08/22/19 at 14:45 Morphine Sulfate (Morphine Sulfate) 10 mg 1X ONCE IV Last administered on 08/22/19at 15:20; Start 08/22/19 at 15:00; Stop 08/22/19 at 15:01; Status DC Morphine Sulfate (Morphine Sulfate) 10 mg PRN Q4HRS PRN IV PAIN Last administered on 08/30/19at 05:18; Start 08/22/19 at 15:15 Acetaminophen (Tylenol) 1,000 mg PRN Q6HRS PRN PO MILD PAIN 1-3 Last administered on 08/22/19at 15:20; Start 08/22/19 at 15:15 Nicotine Polacrilex (Nicorette Gum) 1 each PRN Q1HR PRN BC SMOKING CESSATION Last administered on 08/30/19at 05:20; Start 08/22/19 at 18:15 Meropenem 1 gm/ Sodium Chloride 100 ml @ 200 mls/hr Q8HRS IV Last administered on 08/28/19at 05:59; Start 08/23/19 at 15:30; Stop 08/28/19 at 10:28; Status DC Vancomycin HCl (Vanco Per Pharmacy) 1 each PRN DAILY PRN MC SEE COMMENTS Last administered on 08/27/19at 12:31; Start 08/23/19 at 15:30; Stop 08/28/19 at 10:31; Status DC Vancomycin HCl 1.75 gm/Sodium Chloride 500 ml @ 250 mls/hr 1X ONCE IV Last administered on 08/23/19at 20:26; Start 08/23/19 at 16:00; Stop 08/23/19 at 17:59; Status DC Vancomycin HCl 1.25 gm/Sodium Chloride 250 ml @ 167 mls/hr Q12H IV Last administered on 08/24/19at 09:45; Start 08/24/19 at 09:00; Stop 08/24/19 at 13:37; Status DC Vancomycin HCl (Vancomycin Trough Level) 1 each 1X ONCE MC Last administered on 08/25/19at 08:30; Start 08/25/19 at 08:30; Stop 08/25/19 at 08:31; Status DC Fentanyl Citrate (Fentanyl 2ml Vial) 25 mcg PRN Q5MIN PRN IV MILD PAIN 1-3; Start 08/25/19 at 07:00; Stop 08/25/19 at 15:00; Status DC Fentanyl Citrate (Fentanyl 2ml Vial) 50 mcg PRN Q5MIN PRN IV MODERATE TO SEVERE PAIN Last administered on 08/25/19at 10:11; Start 08/25/19 at 07:00; Stop 08/25/19 at 15:00; Status DC Morphine Sulfate (Morphine Sulfate) 1 mg PRN Q10MIN PRN IV SEVERE PAIN 7-10; Start 08/25/19 at 07:00; Stop 08/25/19 at 15:00; Status DC Ringer's Solution 1,000 ml @ 30 mls/hr Q24H IV Last administered on 08/25/19at 08:00; Start 08/25/19 at 07:00; Stop 08/25/19 at 18:59; Status DC Hydromorphone HCl (Dilaudid) 0.5 mg PRN Q10MIN PRN IV SEV PAIN, Second choice; Start 08/25/19 at 07:00; Stop 08/25/19 at 15:00; Status DC Prochlorperazine Edisylate (Compazine) 5 mg PACU PRN PRN IV NAUSEA, MRX1; Start 08/25/19 at 07:00; Stop 08/25/19 at 15:00; Status DC Vancomycin HCl 1.25 gm/Sodium Chloride 250 ml @ 167 mls/hr Q8H IV Last administered on 08/26/19at 11:24; Start 08/24/19 at 17:00; Stop 08/26/19 at 12:32; Status DC Lactobacillus Rhamnosus (Culturelle) 1 cap BID PO Last administered on 08/29/19at 21:17; Start 08/24/19 at 21:00 Propofol (Diprivan) 200 mg STK-MED ONCE IV ; Start 08/25/19 at 07:42; Stop 08/25/19 at 07:42; Status DC Lidocaine HCl (Lidocaine Pf 2% Vial) 5 ml STK-MED ONCE .ROUTE ; Start 08/25/19 at 07:42; Stop 08/25/19 at 07:42; Status DC Dexamethasone Sodium Phosphate (Decadron) 4 mg STK-MED ONCE .ROUTE ; Start 08/25/19 at 07:42; Stop 08/25/19 at 07:42; Status DC Ondansetron HCl (Zofran) 4 mg STK-MED ONCE .ROUTE ; Start 08/25/19 at 07:42; Stop 08/25/19 at 07:42; Status DC Fentanyl Citrate (Fentanyl 2ml Vial) 100 mcg STK-MED ONCE .ROUTE ; Start 08/25/19 at 07:42; Stop 08/25/19 at 07:43; Status DC Midazolam HCl (Versed) 2 mg STK-MED ONCE .ROUTE ; Start 08/25/19 at 08:49; Stop 08/25/19 at 08:49; Status DC Sevoflurane (Ultane) 30 ml STK-MED ONCE IH ; Start 08/25/19 at 09:16; Stop 08/25/19 at 09:16; Status DC Vancomycin HCl 1 gm/Sodium Chloride 250 ml @ 250 mls/hr Q8H IV Last administer ed on 08/28/19at 03:38; Start 08/26/19 at 20:00; Stop 08/28/19 at 10:30; Status DC Multi-Ingredient Mouthwash/Gargle (Gi Cocktail) 20 ml 1X ONCE SWSW Last administered on 08/27/19at 04:31; Start 08/27/19 at 04:30; Stop 08/27/19 at 04:31; Status DC Famotidine (Pepcid) 20 mg BID PO Last administered on 08/29/19at 21:17; Start 08/27/19 at 09:00 Ampicillin Sodium 2 gm/Sodium Chloride 100 ml @ 200 mls/hr Q4HRS IV Last administered on 08/30/19at 04:00; Start 08/28/19 at 12:00 Doxycycline Hyclate (Vibra-Tab) 100 mg BID PO Last administered on 08/29/19at 21:17; Start 08/28/19 at 10:30 Ciprofloxacin (Cipro) 500 mg BID PO Last administered on 08/29/19at 16:30; Start 08/29/19 at 17:00 Active Scripts Active No Active Prescriptions or Reported Medications Vitals/I & O Vital Sign - Last 24 Hours 08/29/19 08/29/19 08/29/19 08/29/19 11:00 11:37 11:59 15:57 Temp 98.1 98.1 Pulse 81 Resp 18 B/P (MAP) 98/67 (77) Pulse Ox 97 O2 Delivery Room Air Room Air Room Air Room Air 08/29/19 08/29/19 08/29/19 08/29/19 15:59 16:29 19:00 20:00 Temp 98.6 98.1 98.6 98.1 Pulse 76 68 Resp 18 18 B/P (MAP) 107/73 (84) 124/74 (91) Pulse Ox 96 97 O2 Delivery Room Air Room Air Room Air Room Air 08/29/19 08/29/19 08/29/19 08/30/19 20:23 20:53 23:02 01:08 Temp 98.2 98.2 Pulse 77 Resp 20 18 20 B/P (MAP) 129/79 (96) Pulse Ox 97 O2 Delivery Room Air Room Air Room Air Room Air 08/30/19 08/30/19 08/30/19 08/30/19 01:38 03:02 05:18 05:48 Temp 97.8 97.8 Pulse 76 Resp 18 20 20 B/P (MAP) 132/82 (99) Pulse Ox 98 O2 Delivery Room Air Room Air Room Air Room Air 08/30/19 07:00 Temp 97.7 97.7 Pulse 70 Resp 16 B/P (MAP) 130/80 (97) Pulse Ox 98 O2 Delivery Room Air Intake and Output 08/29/19 08/29/19 08/30/19 15:00 23:00 07:00 Intake Total 820 ml 1180 ml 960 ml Balance 820 ml 1180 ml 960 ml Justicifation of Admission Dx: Justifications for Admission: Justification of Admission Dx: Yes Cellulitis: Cellulitis CHUCK MARCUS MD Aug 30, 2019 08:45
[2019-08-30] MEDS: FAMOTIDINE 20 MG TABLET. PO SCH (09:11)
[2019-08-30] MEDS: CIPROFLOXACIN HCL 250 MG TABLET. PO SCH (09:11)
[2019-08-30] MEDS: DOXYCYCLINE HYCLATE 100 MG TABLET PO SCH (09:11)
[2019-08-30] MEDS: LACTOBACILLUS RHAMNOSUS GG 1 CAPSULE. PO SCH (09:11)
[2019-08-30 11:00] VITALS: BP 112/75
--- NOTE | 2019-08-30 11:00 | PDOC ---
Infectious Disease Note Subjective Subjective Says left hand is looking "awesome" Left forearm little red + drainage left leg, more when squeezed Denies F/C/aches/N/V/D/SOA ROS ROS no n/v/d/ Vital Sign Vital Signs Vital Signs Date Time Temp Pulse Resp B/P (MAP) Pulse Ox O2 Delivery O2 Flow Rate FiO2 08/30/19 09:45 Room Air 08/30/19 07:00 97.7 70 16 130/80 (97) 98 97.7 Physical Exam PHYSICAL EXAM GENERAL: Propped up in bed, alert, appears comfortable HEENT: Normal conjunctivae. He has an eyebrow piercing on the left. Oral cavity is clear. NECK: Supple. LUNGS: Clear to auscultation. HEART: S1, S2. ABDOMEN: Soft, nontender. No guarding, no rebound. EXTREMITIES: Without clubbing or cyanosis. Dorsal aspect of his left hand/forearm wounds sutured closed Left leg wound + drainage, no area redness SKIN: Otherwise, warm to touch without signs of generalized rash. NEUROLOGIC: Alert, answers questions appropriately PIV Labs Lab Laboratory Tests Test 08/30/19 03:35 White Blood Count 7.0 x10^3/uL (4.0-11.0) Red Blood Count 4.12 x10^6/uL (4.30-5.70) Hemoglobin 11.6 g/dL (13.0-17.5) Hematocrit 34.5 % (39.0-53.0) Mean Corpuscular Volume 84 fL (79-100) Mean Corpuscular Hemoglobin 28 pg (25-35) Mean Corpuscular Hemoglobin Concent 34 g/dL (31-37) Red Cell Distribution Width 15.9 % (11.5-14.5) Platelet Count 368 x10^3/uL (140-400) Neutrophils (%) (Auto) 42 % (31-73) Lymphocytes (%) (Auto) 44 % (24-48) Monocytes (%) (Auto) 8 % (0-9) Eosinophils (%) (Auto) 5 % (0-3) Basophils (%) (Auto) 1 % (0-3) Neutrophils # (Auto) 2.9 x10^3/uL (1.8-7.7) Lymphocytes # (Auto) 3.1 x10^3/uL (1.0-4.8) Monocytes # (Auto) 0.6 x10^3/uL (0.0-1.1) Eosinophils # (Auto) 0.4 x10^3/uL (0.0-0.7) Basophils # (Auto) 0.1 x10^3/uL (0.0-0.2) Sodium Level 138 mmol/L (136-145) Potassium Level 4.6 mmol/L (3.5-5.1) Chloride Level 102 mmol/L (98-107) Carbon Dioxide Level 25 mmol/L (21-32) Anion Gap 11 (6-14) Blood Urea Nitrogen 19 mg/dL (8-26) Creatinine 0.9 mg/dL (0.7-1.3) Estimated GFR (Cockcroft-Gault) 93.5 BUN/Creatinine Ratio 21 (6-20) Glucose Level 88 mg/dL (70-99) Calcium Level 8.8 mg/dL (8.5-10.1) Total Bilirubin 0.2 mg/dL (0.2-1.0) Aspartate Amino Transf (AST/SGOT) 54 U/L (15-37) Alanine Aminotransferase (ALT/SGPT) 60 U/L (16-63) Alkaline Phosphatase 49 U/L (46-116) Total Protein 7.3 g/dL (6.4-8.2) Albumin 3.1 g/dL (3.4-5.0) Albumin/Globulin Ratio 0.7 (1.0-1.7) Micro Microbiology 08/25/19 Gram Stain - Final, Resulted 08/25/19 Aerobic and Anaerobic Culture - Preliminary, Resulted 08/22/19 Blood Culture - Final, Complete 08/22/19 Antimicrobic Susceptibility - Final, Complete Objective Assessment MRSA Procedures performed: Irrigation debridement of dorsal left hand abscess measuring about 3 cm in diameter 08/24 Irrigation debridement left volar forearm abscess measuring about 4 cm in diameter 08/24 Bacteremia, Enterococcus Amp sensitive, 1 of 2 bottles. 08/21 possible contamination but have to treat should not cause abscesses in extremities Left hand abscess. Forearm cellulitis bilaterally LUE abscess. 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 Cr better COVID - neg Plan Plan of Care Ampicillin and Doxy, cipro - Local wound care f/u cultures Contact isolation pt cannot go [facility] with iv enterococcus might be contaminant 1/2 bottles, non of the wounds had it will use amox , doxy, cipro for 2 wks ok to d/c HUBERT RACHEL MD Aug 30, 2019 11:00
--- NOTE | 2019-08-30 12:11 | PDOC3 ---
Discharge Summary Date of Admission: Aug 22, 2019 Date of Discharge: Aug 30, 2019 Follow-Up: 1-2 days Admitting Diagnosis comment: DISCHARGE DX Left arm cellulitis secondary to IV drug abuse Heroin addiction Left leg infection secondary to heroin injections PLAN CONTINUE AMPICILLIN, PO DOXY PLACEMENT NEEDED IS HOMELESS pt cannot go to [facility] with iv 08/29 enterococcus might be contaminant 1/2 bottles, non of the wounds had it History of Present Illness History of Present Illness 08/30/2019 Patient seen and examined His left arm really has not changed much incision and drainage 08/23 Discussed with RN Chart reviewed OK WITH ID FOR D/C Vitals Vitals Vital Signs Date Time Temp Pulse Resp B/P (MAP) Pulse Ox O2 Delivery O2 Flow Rate FiO2 08/30/19 07:00 97.7 70 16 130/80 (97) 98 Room Air 97.7 Physical Exam Physical Exam GENERAL: Propped up in bed, alert, appears comfortable HEENT: Normal conjunctivae. He has an eyebrow piercing on the left. Oral cavity is clear. NECK: Supple. LUNGS: Clear to auscultation. HEART: S1, S2. ABDOMEN: Soft, nontender. No guarding, no rebound. EXTREMITIES: Without clubbing or cyanosis. Dorsal aspect of his left hand/forearm wounds sutured closed Left leg wound + drainage, no area redness SKIN: Otherwise, warm to touch without signs of generalized rash. NEUROLOGIC: Alert, answers questions appropriately PIV General: Alert, Oriented X3, Cooperative, No acute distress Heart: Regular rate, Normal S1 Lungs: Clear Abdomen: Normal bowel sounds, Soft, No tenderness Extremities: No cyanosis, No edema, Normal pulses Skin: Other (As below) FINAL DIAGNOSIS Problems Medical Problems: (1) Abscess, hand Status: Acute (2) Cellulitis Status: Acute Brief Hospital Course Mr. Rodriguez is a 38 old [sex] who presented with [CELLULITIS OF HAND, ARM ] CONDITION AT DISCHARGE: Improved Discharge Medications Current Medications Sodium Chloride 1,000 ml @ 40 mls/hr 1X ONCE IV Last administered on 08/22/19at 10:18; Start 08/22/19 at 09:30; Stop 08/23/19 at 10:29; Status DC Ceftriaxone Sodium (Rocephin) 1 gm 1X ONCE IVP Last administered on 08/22/19at 10:19; Start 08/22/19 at 09:30; Stop 08/22/19 at 09:31; Status DC Clindamycin Phosphate 50 ml @ 100 mls/hr 1X ONCE IV Last administered on 08/22/19at 10:18; Start 08/22/19 at 10:00; Stop 08/22/19 at 10:29; Status DC Tetracaine/ Epinephrine/ Lidocaine (Let (Xbyv-Ssxvwzb-Zicuo) Gel) 3 ml 1X ONCE TP Last administered on 08/22/19at 10:18; Start 08/22/19 at 10:00; Stop 08/22/19 at 10:01; Status DC Methadone HCl (Dolophine) 10 mg PRN TID PRN PO MODERATE - SEVERE PAIN Last administered on 08/30/19at 09:11; Start 08/22/19 at 14:45 Morphine Sulfate (Morphine Sulfate) 10 mg 1X ONCE IV Last administered on 08/22/19 15:20; Start 08/22/19 at 15:00; Stop 08/22/19 at 15:01; Status DC Morphine Sulfate (Morphine Sulfate) 10 mg PRN Q4HRS PRN IV PAIN Last administered on 08/30/19at 09:12; Start 08/22/19 at 15:15 Acetaminophen (Tylenol) 1,000 mg PRN Q6HRS PRN PO MILD PAIN 1-3 Last administered on 08/22/19at 15:20; Start 08/22/19 at 15:15 Nicotine Polacrilex (Nicorette Gum) 1 each PRN Q1HR PRN BC SMOKING CESSATION Last administered on 08/30/19at 05:20; Start 08/22/19 at 18:15 Meropenem 1 gm/ Sodium Chloride 100 ml @ 200 mls/hr Q8HRS IV Last administered on 08/28/19at 05:59; Start 08/23/19 at 15:30; Stop 08/28/19 at 10:28; Status DC Vancomycin HCl (Vanco Per Pharmacy) 1 each PRN DAILY PRN MC SEE COMMENTS Last administered on 08/27/19at 12:31; Start 08/23/19 at 15:30; Stop 08/28/19 at 10:31; Status DC Vancomycin HCl 1.75 gm/Sodium Chloride 500 ml @ 250 mls/hr 1X ONCE IV Last administered on 08/23/19at 20:26; Start 08/23/19 at 16:00; Stop 08/23/19 at 17:59; Status DC Vancomycin HCl 1.25 gm/Sodium Chloride 250 ml @ 167 mls/hr Q12H IV Last administered on 08/24/19at 09:45; Start 08/24/19 at 09:00; Stop 08/24/19 at 13:37; Status DC Vancomycin HCl (Vancomycin Trough Level) 1 each 1X ONCE MC Last administered on 08/25/19at 08:30; Start 08/25/19 at 08:30; Stop 08/25/19 at 08:31; Status DC Fentanyl Citrate (Fentanyl 2ml Vial) 25 mcg PRN Q5MIN PRN IV MILD PAIN 1-3; Start 08/25/19 at 07:00; Stop 08/25/19 at 15:00; Status DC Fentanyl Citrate (Fentanyl 2ml Vial) 50 mcg PRN Q5MIN PRN IV MODERATE TO SEVERE PAIN Last administered on 08/25/19at 10:11; Start 08/25/19 at 07:00; Stop 08/25/19 at 15:00; Status DC Morphine Sulfate (Morphine Sulfate) 1 mg PRN Q10MIN PRN IV SEVERE PAIN 7-10; Start 08/25/19 at 07:00; Stop 08/25/19 at 15:00; Status DC Ringer's Solution 1,000 ml @ 30 mls/hr Q24H IV Last administered on 08/25/19at 08:00; Start 08/25/19 at 07:00; Stop 08/25/19 at 18:59; Status DC Hydromorphone HCl (Dilaudid) 0.5 mg PRN Q10MIN PRN IV SEV PAIN, Second choice; Start 08/25/19 at 07:00; Stop 08/25/19 at 15:00; Status DC Prochlorperazine Edisylate (Compazine) 5 mg PACU PRN PRN IV NAUSEA, MRX1; Start 08/25/19 at 07:00; Stop 08/25/19 at 15:00; Status DC Vancomycin HCl 1.25 gm/Sodium Chloride 250 ml @ 167 mls/hr Q8H IV Last administered on 08/26/19at 11:24; Start 08/24/19 at 17:00; Stop 08/26/19 at 12:32; Status DC Lactobacillus Rhamnosus (Culturelle) 1 cap BID PO Last administered on 08/30/19at 09:11; Start 08/24/19 at 21:00 Propofol (Diprivan) 200 mg STK-MED ONCE IV ; Start 08/25/19 at 07:42; Stop 08/25/19 at 07:42; Status DC Lidocaine HCl (Lidocaine Pf 2% Vial) 5 ml STK-MED ONCE .ROUTE ; Start 08/25/19 at 07:42; Stop 08/25/19 at 07:42; Status DC Dexamethasone Sodium Phosphate (Decadron) 4 mg STK-MED ONCE .ROUTE ; Start 08/25/19 at 07:42; Stop 08/25/19 at 07:42; Status DC Ondansetron HCl (Zofran) 4 mg STK-MED ONCE .ROUTE ; Start 08/25/19 at 07:42; Stop 08/25/19 at 07:42; Status DC Fentanyl Citrate (Fentanyl 2ml Vial) 100 mcg STK-MED ONCE .ROUTE ; Start 08/25/19 at 07:42; Stop 08/25/19 at 07:43; Status DC Midazolam HCl (Versed) 2 mg STK-MED ONCE .ROUTE ; Start 08/25/19 at 08:49; Stop 08/25/19 at 08:49; Status DC Sevoflurane (Ultane) 30 ml STK-MED ONCE IH ; Start 08/25/19 at 09:16; Stop at 09:16; Status DC Vancomycin HCl 1 gm/Sodium Chloride 250 ml @ 250 mls/hr Q8H IV Last administered on 08/28/19at 03:38; Start 08/26/19 at 20:00; Stop 08/28/19 at 10:30; Status DC Multi-Ingredient Mouthwash/Gargle (Gi Cocktail) 20 ml 1X ONCE SWSW Last administered on 08/27/19at 04:31; Start 08/27/19 at 04:30; Stop 08/27/19 at 04:31; Status DC Famotidine (Pepcid) 20 mg BID PO Last administered on 08/30/19at 09:11; Start 08/27/19 at 09:00 Ampicillin Sodium 2 gm/Sodium Chloride 100 ml @ 200 mls/hr Q4HRS IV Last administered on 08/30/19at 09:11; Start 08/28/19 at 12:00 Doxycycline Hyclate (Vibra-Tab) 100 mg BID PO Last administered on 08/30/19at 09:11; Start 08/28/19 at 10:30 Ciprofloxacin (Cipro) 500 mg BID PO Last administered on 08/30/19at 09:11; Start 08/29/19 at 17:00 Active Scripts Active No Active Prescriptions or Reported Medications Vital Signs Vital Signs Date Time Temp Pulse Resp B/P (MAP) Pulse Ox O2 Delivery O2 Flow Rate FiO2 08/30/19 11:00 98.1 79 17 112/75 (87) 99 Room Air 98.1 Labs Laboratory Tests Test 08/29/19 04:25 08/30/19 03:35 White Blood Count 7.4 x10^3/uL (4.0-11.0) 7.0 x10^3/uL (4.0-11.0) Red Blood Count 4.42 x10^6/uL (4.30-5.70) 4.12 x10^6/uL (4.30-5.70) Hemoglobin 12.4 g/dL (13.0-17.5) 11.6 g/dL (13.0-17.5) Hematocrit 37.0 % (39.0-53.0) 34.5 % (39.0-53.0) Mean Corpuscular Volume 84 fL (79-100) 84 fL (79-100) Mean Corpuscular Hemoglobin 28 pg (25-35) 28 pg (25-35) Mean Corpuscular Hemoglobin Concent 33 g/dL (31-37) 34 g/dL (31-37) Red Cell Distribution Width 15.6 % (11.5-14.5) 15.9 % (11.5-14.5) Platelet Count 375 x10^3/uL (140-400) 368 x10^3/uL (140-400) Neutrophils (%) (Auto) 42 % (31-73) 42 % (31-73) Lymphocytes (%) (Auto) 43 % (24-48) 44 % (24-48) Monocytes (%) (Auto) 8 % (0-9) 8 % (0-9) Eosinophils (%) (Auto) 6 % (0-3) 5 % (0-3) Basophils (%) (Auto) 1 % (0-3) 1 % (0-3) Neutrophils # (Auto) 3.1 x10^3/uL (1.8-7.7) 2.9 x10^3/uL (1.8-7.7) Lymphocytes # (Auto) 3.2 x10^3/uL (1.0-4.8) 3.1 x10^3/uL (1.0-4.8) Monocytes # (Auto) 0.6 x10^3/uL (0.0-1.1) 0.6 x10^3/uL (0.0-1.1) Eosinophils # (Auto) 0.5 x10^3/uL (0.0-0.7) 0.4 x10^3/uL (0.0-0.7) Basophils # (Auto) 0.1 x10^3/uL (0.0-0.2) 0.1 x10^3/uL (0.0-0.2) Sodium Level 138 mmol/L (136-145) 138 mmol/L (136-145) Potassium Level 4.5 mmol/L (3.5-5.1) 4.6 mmol/L (3.5-5.1) Chloride Level 101 mmol/L (98-107) 102 mmol/L (98-107) Carbon Dioxide Level 30 mmol/L (21-32) 25 mmol/L (21-32) Anion Gap 7 (6-14) 11 (6-14) Blood Urea Nitrogen 25 mg/dL (8-26) 19 mg/dL (8-26) Creatinine 0.9 mg/dL (0.7-1.3) 0.9 mg/dL (0.7-1.3) Estimated GFR (Cockcroft-Gault) 93.5 93.5 BUN/Creatinine Ratio 28 (6-20) 21 (6-20) Glucose Level 118 mg/dL (70-99) 88 mg/dL (70-99) Calcium Level 8.9 mg/dL (8.5-10.1) 8.8 mg/dL (8.5-10.1) Total Bilirubin 0.2 mg/dL (0.2-1.0) 0.2 mg/dL (0.2-1.0) Aspartate Amino Transf (AST/SGOT) 53 U/L (15-37) 54 U/L (15-37) Alanine Aminotransferase (ALT/SGPT) 60 U/L (16-63) 60 U/L (16-63) Alkaline Phosphatase 51 U/L (46-116) 49 U/L (46-116) Total Protein 7.6 g/dL (6.4-8.2) 7.3 g/dL (6.4-8.2) Albumin 3.1 g/dL (3.4-5.0) 3.1 g/dL (3.4-5.0) Albumin/Globulin Ratio 0.7 (1.0-1.7) 0.7 (1.0-1.7) Laboratory Tests Test 08/30/19 03:35 White Blood Count 7.0 x10^3/uL (4.0-11.0) Red Blood Count 4.12 x10^6/uL (4.30-5.70) Hemoglobin 11.6 g/dL (13.0-17.5) Hematocrit 34.5 % (39.0-53.0) Mean Corpuscular Volume 84 fL (79-100) Mean Corpuscular Hemoglobin 28 pg (25-35) Mean Corpuscular Hemoglobin Concent 34 g/dL (31-37) Red Cell Distribution Width 15.9 % (11.5-14.5) Platelet Count 368 x10^3/uL (140-400) Neutrophils (%) (Auto) 42 % (31-73) Lymphocytes (%) (Auto) 44 % (24-48) Monocytes (%) (Auto) 8 % (0-9) Eosinophils (%) (Auto) 5 % (0-3) Basophils (%) (Auto) 1 % (0-3) Neutrophils # (Auto) 2.9 x10^3/uL (1.8-7.7) Lymphocytes # (Auto) 3.1 x10^3/uL (1.0-4.8) Monocytes # (Auto) 0.6 x10^3/uL (0.0-1.1) Eosinophils # (Auto) 0.4 x10^3/uL (0.0-0.7) Basophils # (Auto) 0.1 x10^3/uL (0.0-0.2) Sodium Level 138 mmol/L (136-145) Potassium Level 4.6 mmol/L (3.5-5.1) Chloride Level 102 mmol/L (98-107) Carbon Dioxide Level 25 mmol/L (21-32) Anion Gap 11 (6-14) Blood Urea Nitrogen 19 mg/dL (8-26) Creatinine 0.9 mg/dL (0.7-1.3) Estimated GFR (Cockcroft-Gault) 93.5 BUN/Creatinine Ratio 21 (6-20) Glucose Level 88 mg/dL (70-99) Calcium Level 8.8 mg/dL (8.5-10.1) Total Bilirubin 0.2 mg/dL (0.2-1.0) Aspartate Amino Transf (AST/SGOT) 54 U/L (15-37) Alanine Aminotransferase (ALT/SGPT) 60 U/L (16-63) Alkaline Phosphatase 49 U/L (46-116) Total Protein 7.3 g/dL (6.4-8.2) Albumin 3.1 g/dL (3.4-5.0) Albumin/Globulin Ratio 0.7 (1.0-1.7) Allergies Allergies Coded Allergies Type Severity Reaction Last Updated Verified haloperidol Allergy Severe Swelling 11/11/18 Yes quetiapine Allergy Severe Anaphylaxis 08/23/19 Yes I S O L A T I O N *CONTACT* Allergy Unknown 11/18/18 Yes Disposition/Orders: D/C to Home Justicifation of Admission Dx: Justifications for Admission: Justification of Admission Dx: Yes Cellulitis: Cellulitis CHUCK MARCUS MD Aug 30, 2019 12:11
[2019-08-30] MEDS ORDERED: DOXY100T PO (12:16)
[2019-08-30] MEDS ORDERED: AMOX875T PO (12:16)
[2019-08-30] MEDS ORDERED: LACT1CAP19 PO (12:16)
[2019-08-30] MEDS ORDERED: ACET500T68 PO (12:16)
[2019-08-30] MEDS ORDERED: METH10TA2 PO (12:16)
[2019-08-30] MEDS ORDERED: CIPR250T30 PO (12:16)
[2019-08-30] MEDS ORDERED: FAMO20TA5 PO (12:16)
--- NOTE | 2019-08-30 12:17 | DISCH ---
DISCHARGE INSTRUCTIONS Condition on Discharge Condition on Discharge: Stable Activity After Discharge Activity Instructions for Disc: Activity as tolerated Bathing Instructions: Shower-keep dressing dry, No Tub Bath until see Lifting Instructions after Dis: No heavy lifting Exercise Instruction after Dis: Progress as tolerated Driving Instructions after Dis: Do not drive today Weight Bearing Status after Di: As tolerated Diet after Discharge Diet after Discharge: GI Soft Diet Texture: Regular Liquid Texture: Thin Liquid Swallowing Supervision: None needed Wound Incision Care Wound/Incision Care: Keep wound elevated, No wound care needed Wound Care Equipment: Dressings Checks after Discharge Checks after discharge: Check blood press - daily Contacting the after DC Call your doctor for: If your condition worsens Treatment/Equipment after DC Adaptive Equipment Issued: None CHUCK MARCUS MD Aug 30, 2019 12:17
--- NOTE | 2019-08-30 12:25 | NUR ---
ROSITA following. Discussed with RN, pt to discharge today to [facility] at [address] [place] [address] [place], [place], [id number]. ROSITA was about to set up transportation when Ingrid for [facility] advised the plan had fallen through due to [facility] having a COVID-19 positive and not being able to take admissions today. Ingrid from [facility] is coming back to see pt. RN notified. Addendum: 08/30/19 at 1609 by CARRI BECKER Ingrid from [facility] is taking pt's methadone script to get filled, pt will discharge to his mothers home via cab pass from RN. No further ROSITA needs.
[2019-08-30 15:00] VITALS: BP 125/68
--- NOTE | 2019-08-30 18:56 | NUR ---
Pt discharged home with self care. Discharge instructions discussed. Dressings changed. Prescriptions discussed and Ingrid with PAT team picked up prescriptions from pharmacy. IV removed. Pt ambulated to entrance and was secured in taxi.
== END 2019-08-30 18:58 | disposition home or self-care (01) | DRG 580 ==
LOC: ER 08:11 → ED HOLD 13:25 → 6 SOUTH 13:26 → 4 NORTH 08-25 09:56
PROVIDERS: ADMIT Internal Medicine; ATTEND Internal Medicine
PROC: 0H9GXZZ Drainage of Left Hand Skin, External Approach (ICD-10-PCS; 2019-08-22)
PROC: 0JBK0ZZ Excision of Left Hand Subcutaneous Tissue and Fascia, Open Approach (ICD-10-PCS; principal; 2019-08-25 09:00)
DX: L02.414 Cutaneous abscess of left upper limb (principal); L02.512 Cutaneous abscess of left hand; L03.116 Cellulitis of left lower limb; F11.20 Opioid dependence, uncomplicated; R78.81 Bacteremia; L03.114 Cellulitis of left upper limb; F41.9 Anxiety disorder, unspecified; F17.210 Nicotine dependence, cigarettes, uncomplicated; Z20.828 Contact with and (suspected) exposure to other viral communicable diseases; Z59.0 Homelessness; Z86.14 Personal history of Methicillin resistant Staphylococcus aureus infection; F32.9 Major depressive disorder, single episode, unspecified; Z88.8 Allergy status to other drugs, medicaments and biological substances; B95.2 Enterococcus as the cause of diseases classified elsewhere
CPT/HCPCS: 10060; 36415; 80048; 80053; 80202; 81001; 83605; 85007; 85025; 87040; 87071; 87075; 87077; 87186; 87205; 96365; 96366; 96375; A7015; J0290; J0696; J1100; J2185; J2250; J2270; J2405; J2704; J3010; J3370; J3490; J7030; J7040; J7050; J7120; 99285-25; G0378; U0003-CS

== ENCOUNTER 2019-09-01 11:42 | Emergency (ER) | payer SELFPAY ==
[~2019-09-01] VITALS: Ht 167.6 cm; Wt 75.0 kg
[~2019-09-01 11:42] MED LIST changes: +ACET500T68 PO; +AMOX875T PO; +CIPR250T30 PO; +DOXY100T PO; +FAMO20TA5 PO; +LACT1CAP19 PO; +METH10TA2 PO
[2019-09-01 11:45] VITALS: BP 138/82
--- NOTE | 2019-09-01 12:00 | PHYS DOC ---
Past Medical History Past Medical History: Hepatitis, MRSA, Other Additional Past Medical Histor: drug/alcohol,methadone abuse,HEP C, heroin use Past Surgical History: Other Additional Past Surgical Histo: R KNEE SX,L 3RD FINGER, left lower leg abscess I&D Smoking Status: Former Smoker Alcohol Use: Rarely Drug Use: Benzodiazepine, Cocaine, Heroin, Marijuana, Methadone General Adult EDM: Chief Complaint: MEDICAL CLEARANCE HPI: HPI: Patient is a 38 year old male who presents emergency department with possible methadone overdose. Patient was discharged from this hospital yesterday and was supposed to report to a rehab facility today but they would not take him because they state he took too much methadone. He was prescribed apparently 40 pills of 10 mg methadone yesterday and is taken 34 of those pills. He has no shortness of breath or weakness or fatigue. He has no altered mental status. He has no complaints and states he feels well. Review of Systems: Review of Systems: Constitutional: Denies fever or chills. [] Eyes: Denies change in visual acuity. [] HENT: Denies nasal congestion or sore throat. [] Respiratory: Denies cough or shortness of breath. [] Cardiovascular: Denies chest pain or edema. [] GI: Denies abdominal pain, nausea, vomiting, bloody stools or diarrhea. [] : Denies dysuria. [] Musculoskeletal: Denies back pain or joint pain. [] Integument: Denies rash. [] Neurologic: Denies headache, focal weakness or sensory changes. [] Endocrine: Denies polyuria or polydipsia. [] Lymphatic: Denies swollen glands. [] Psychiatric: Denies depression or anxiety. [] Heart Score: Risk Factors: Risk Factors: DM, Current or recent (<one month) smoker, HTN, HLP, family history of CAD, obesity. Risk Scores: Score 0 - 3: 2.5% MACE over next 6 weeks - Discharge Home Score 4 - 6: 20.3% MACE over next 6 weeks - Admit for Clinical Observation Score 7 - 10: 72.7% MACE over next 6 weeks - Early Invasive Strategies Allergies: Allergies: Allergies Coded Allergies Type Severity Reaction Last Updated Verified haloperidol Allergy Severe Swelling 11/11/18 Yes quetiapine Allergy Severe Anaphylaxis 08/23/19 Yes I S O L A T I O N *CONTACT* Allergy Unknown 11/18/18 Yes Physical Exam: PE: Constitutional: Well developed, well nourished, no acute distress, non-toxic appearance. [] HENT: Normocephalic, atraumatic, bilateral external ears normal, oropharynx moist, no oral exudates, nose normal. [] Eyes: PERRLA, EOMI, conjunctiva normal, no discharge. [] Neck: Normal range of motion, no tenderness, supple, no stridor. [] Cardiovascular:Heart rate regular rhythm, no murmur [] Lungs & Thorax: Bilateral breath sounds clear to auscultation [] Abdomen: Bowel sounds normal, soft, no tenderness, no masses, no pulsatile masses. [] Skin: Warm, dry, no erythema, no rash. [] Back: No tenderness, no CVA tenderness. [] Extremities: No tenderness, no cyanosis, no clubbing, ROM intact, no edema. [] Neurologic: Alert and oriented X 3, normal motor function, normal sensory fun ction, no focal deficits noted. [] Psychologic: Affect normal, judgement normal, mood normal. [] EKG: EKG: [] Radiology/Procedures: Radiology/Procedures: [] Course & Med Decision Making: Course & Med Decision Making Pertinent Labs and Imaging studies reviewed. (See chart for details) [Will have the patient evaluated by the crisis team.] Crisis team states that the rehab facility had called and wanted him reevaluated because he had taken the more than his recommended doses of methadone over the last 2 days. He has taken approximately 300 mg of methadone over the last 48 hours. He is showing no signs of toxicity. The patient will be [facility] at 1 PM. His case loader operator is going to check in with him junioright. Roxann Disclaimer: Roxann Disclaimer: This electronic medical record was generated, in whole or in part, using a voice recognition dictation system. Departure Departure Impression: Primary Impression: Opioid abuse Disposition: 01 HOME, SELF-CARE Condition: GOOD Referrals: NO PCP (PCP) Patient Instructions: Opiate Dependence Additional Instructions: EMERGENCY DEPARTMENT GENERAL DISCHARGE INSTRUCTIONS Thank you for coming to [facility] Emergency Department (ED) today and trusting us with you care. We trust that you had a positivie experience in our Emergency Department. If you wish to speak to the department management, you may call the sirector at [phone]. YOUR FOLLOW UP INSTRUCTIONS ARE FOLLOWS: 1. Do you have a private Doctor? If you do not have a private doctir, please ask for a resource list of physicians or clinics that may be able to assist you with follow up care. 2. The Emergency Physicain has interpreted your x-rays. The X-Ray specialist will also review them. If there is a change in the findingd, you will be notified in 48 hours when at all possible. 3. A lab test or culture has been done, your results will be reviewed and you will be notified if you need a change in treatment. ADDITIONAL INSTRUCTIONS AND INFORMATION: 1. Your care today has been supervised by a physician who is specially trained in emergency care. Many problems require more than one evaluation for a complete diagnosis and treatment. We recommend that you schedule your follow up appointment as recommended to ensure complete treatment of you illness or injury. If you are unable to obtain follow up care and continue to have a problem, or if your consition worsens, we recommend that you return to the ED. 2. We are not able to safelymdetermine your condition over the phone nor are we able to give sound medical advice over the phone. For these safety reasons, if you call for medical advice we will ask you to come to the ED for further evaluation. 3. If you have any questions regarding these discharge instructions please call the ED at [phone]. SAFETY INFORMATION: In the interest of safety, wellness, and injury prevention; we encourage you to wear your sealbelt, if you smoke; quite smoking, and we encourage family to use a protective helmet for bicycling and other sporting events that present an increased risk for head injusry. IF YOUR SYMPTOMS WORSEN OR NEW SYMPTOMS DEVELOP, OR YOU HAVE CONCERNS ABOUT YOUR CONDITION; OR IF YOUR CONDITION WORSENS WHILE YOU ARE WAITING FOR YOUR FOLLOW UP APPOINTMENT; EITHER CONTACT YOUR PRIMARY CARE DOCTOR, THE PHYSICIAN WHOSE NAME AND NUMBER YOU WERE GIVEN, OR RETURN TO THE ED IMMEDIATELY. Meet with Ephraim quiros and proceed Justicifation of Admission Dx: Justifications for Admission: Justification of Admission Dx: Yes Cellulitis: Cellulitis DONGVENKATA JEREZ DO Sep 01, 2019 12:00
[2019-09-01 13:06] LABS: BARBITURATES NEG (NEG); BENZODIAZEPINES NEG (NEG); CANNABINOIDS POS (NEG); COCAINE POS (NEG); METHADONE POS (NEG); OPIATES POS (NEG); PHENCYCLIDINE NEG (NEG)
[2019-09-01 13:07] LABS: AMPHETAMINE/METHAMPHETAMINE NEG (NEG)
== END 2019-09-01 14:56 | disposition home or self-care (01) ==
LOC: ER 11:42
DX: F11.10 Opioid abuse, uncomplicated (principal); K73.9 Chronic hepatitis, unspecified; F12.90 Cannabis use, unspecified, uncomplicated; F19.90 Other psychoactive substance use, unspecified, uncomplicated; Z86.14 Personal history of Methicillin resistant Staphylococcus aureus infection; Z98.890 Other specified postprocedural states; Z87.891 Personal history of nicotine dependence; Z88.8 Allergy status to other drugs, medicaments and biological substances
CPT/HCPCS: 80307; 99283

== ENCOUNTER 2019-11-09 11:18 | Emergency (ER) | payer SELFPAY ==
[~2019-11-09] VITALS: Ht 177.8 cm; Wt 86.4 kg
[2019-11-09 12:30] VITALS: BP 133/92
--- NOTE | 2019-11-09 14:02 | PHYS DOC ---
Past Medical History Past Medical History: Hepatitis, MRSA, Other Additional Past Medical Histor: drug/alcohol,methadone abuse,HEP C, heroin use Past Surgical History: Other Additional Past Surgical Histo: R KNEE SX,L 3RD FINGER, left lower leg abscess I&D Smoking Status: Never Smoker Alcohol Use: None Drug Use: Benzodiazepine, Cocaine, Heroin, Marijuana, Methadone General Adult EDM: Chief Complaint: HAND PROBLEM HPI: HPI: Patient is a 38 year old male who presents with intermittent sharp shooting pain that goes from the right shoulder area down to the lateral elbow and into the tips of his fingers. He states at times almost like normal the blood circulation is being cut off. He states he feels like he is having some swelling in his hand. He states that when he gets up and shakes it off it feels better. He states that the pain is 10 out of 10. Radial pulse strong present. Skin is pink warm and dry. Patient has a history of drug and alcohol use and he is currently on methadone. He has a history of hep C and heroin use. No abscesses are seen. When comparing the right hand to the left hand they look the same. I would say 1+ swelling bilaterally. No pain or tenderness with palpation. Review of Systems: Review of Systems: Constitutional: Denies fever or chills. [] Eyes: Denies change in visual acuity. [] HENT: Denies nasal congestion or sore throat. [] Respiratory: Denies cough or shortness of breath. [] Cardiovascular: Denies chest pain. Right hand swelling Edema. [] GI: Denies abdominal pain, nausea, vomiting, bloody stools or diarrhea. [] : Denies dysuria. [] Musculoskeletal: Denies back pain or joint pain. Right arm and hand intermittent pain. [] Integument: Denies rash. [] Neurologic: Denies headache, focal weakness or sensory changes. Right arm and hand intermittent numbness and pain. [] Endocrine: Denies polyuria or polydipsia. [] Lymphatic: Denies swollen glands. [] Psychiatric: Denies depression or anxiety. [] Heart Score: Risk Factors: Risk Factors: DM, Current or recent (<one month) smoker, HTN, HLP, family history of CAD, obesity. Risk Scores: Score 0 - 3: 2.5% MACE over next 6 weeks - Discharge Home Score 4 - 6: 20.3% MACE over next 6 weeks - Admit for Clinical Observation Score 7 - 10: 72.7% MACE over next 6 weeks - Early Invasive Strategies Allergies: Allergies: Allergies Coded Allergies Type Severity Reaction Last Updated Verified haloperidol Allergy Severe Swelling 11/11/18 Yes quetiapine Allergy Severe Anaphylaxis 08/23/19 Yes I S O L A T I O N *CONTACT* Allergy Unknown 11/18/18 Yes Physical Exam: PE: Constitutional: Well developed, well nourished, no acute distress, non-toxic appearance. [] HENT: Normocephalic, atraumatic, bilateral external ears normal, oropharynx moist, no oral exudates, nose normal. [] Eyes: PERRLA, EOMI, conjunctiva normal, no discharge. [] Neck: Normal range of motion, no tenderness, supple, no stridor. [] Cardiovascular:Heart rate regular rhythm, no murmur [] Lungs & Thorax: Bilateral breath sounds clear to auscultation [] Abdomen: Bowel sounds normal, soft, no tenderness, no masses, no pulsatile masses. [] Skin: Warm, dry, no erythema, no rash. [] Back: No tenderness, no CVA tenderness. [] Extremities: No tenderness, no cyanosis, no clubbing, ROM intact, bilateral hands 1+ edema. [] Neurologic: Alert and oriented X 3, normal motor function, normal sensory function, no focal deficits noted. [] Psychologic: Affect normal, judgement normal, mood normal. [] Current Patient Data: Vital Signs: Vital Signs Date Time Temp Pulse Resp B/P (MAP) Pulse Ox O2 Delivery O2 Flow Rate FiO2 11/09/19 12:30 98.4 108 18 133/92 (106) 95 Room Air 98.4 EKG: EKG: [] Radiology/Procedures: Radiology/Procedures: [] Impression: [facility] [address] [place] [address] IMAGING REPORT Signed PATIENT: CHRISTOPHER CALVIN JR GACCOUNT: [id number] : 1980 LOCATION: ER AGE: 38 SEX: M EXAM STATUS: REG ER ORD. PHYSICIAN: YOAV KELLOGG APRN REASON: pain, swelling PROCEDURE: VENOUS UPPER EXTREMITY RIGHT Right upper extremity venous doppler ultrasound History: Pain and swelling Comparison: None Findings: Multiple grayscale, color, and duplex spectral analysis sonographic images were acquired of the right upper extremity veins to evaluate for the presence of DVT. Interrogated right upper extremity veins are patent with normal phasicity and color-flow, no thrombus demonstrated. Impression: 1. Interrogated right upper extremity veins are patent, no thrombus demonstrated. Electronically signed by: Laurie Quinones MD (11/09/2019 2:27 PM) [id number] DICTATED and SIGNED BY: LAURIE QUINONES MD DATE: 11/09/19 1427 Course & Med Decision Making: Course & Med Decision Making Pertinent Labs and Imaging studies reviewed. (See chart for details) See HPI. Ambulatory with a steady gait. Speaks in full clear sentences. Skin pink warm and dry. Patient states all of his symptoms have worsened since he started [employer]. Denies injury. Denies skin color changes. Denies skin coolness. [] Dragon Disclaimer: Roxann Disclaimer: This electronic medical record was generated, in whole or in part, using a voice recognition dictation system. Departure Departure Impression: Primary Impression: Numbness and tingling Additional Impression: Cervical radiculopathy Disposition: 01 HOME, SELF-CARE Condition: STABLE Referrals: NO PCP (PCP) Patient Instructions: Cervical Radiculopathy, [id number] Additional Instructions: Follow up with primary care provider as soon as possible. Take ibuprofen. I will also place you on a steroid to help with inflammation. Scripts Methylprednisolone (MEDROL) 4 Mg Tab.ds.pk 1 PKG PO UD, #1 PKG Prov: YOAV KELLOGG APRN 11/09/19 Ibuprofen (IBUPROFEN) 600 Mg Tablet 600 MG PO PRN Q6HRS PRN for INFLAMMATION, #20 TAB Prov: YOAV KELLOGG APRN 11/09/19 Justicifation of Admission Dx: Justifications for Admission: Justification of Admission Dx: N/A Cellulitis: Cellulitis YOAV KELLOGG APRN Nov 09, 2019 14:02
--- NOTE | 2019-11-09 14:31 | RAD ---
Right upper extremity venous doppler ultrasound History: Pain and swelling Comparison: None Findings: Multiple grayscale, color, and duplex spectral analysis sonographic images were acquired of the right upper extremity veins to evaluate for the presence of DVT. Interrogated right upper extremity veins are patent with normal phasicity and color-flow, no thrombus demonstrated. Impression: 1. Interrogated right upper extremity veins are patent, no thrombus demonstrated. Electronically signed by: Akbar Stout MD (11/09/2019 2:27 PM) [id number]
[2019-11-09] MEDS ORDERED: IBUP-1007 PO (14:40)
[2019-11-09] MEDS ORDERED: METH4TAB2 PO (14:40)
== END 2019-11-09 15:00 | disposition home or self-care (01) ==
LOC: ER 11:18
DX: M54.12 Radiculopathy, cervical region (principal); R20.2 Paresthesia of skin; R60.0 Localized edema; K73.9 Chronic hepatitis, unspecified; F12.90 Cannabis use, unspecified, uncomplicated; F14.90 Cocaine use, unspecified, uncomplicated; F19.90 Other psychoactive substance use, unspecified, uncomplicated; Z86.14 Personal history of Methicillin resistant Staphylococcus aureus infection; Z98.890 Other specified postprocedural states; Z88.8 Allergy status to other drugs, medicaments and biological substances
CPT/HCPCS: 93971; 99284